=== PATIENT | female | born 1970 | race Caucasian/White ===

== ENCOUNTER 2022-04-30 07:44 | Emergency (ER) | payer BC, SELFPAY ==
[2022-04-30 07:48] VITALS: BP 135/82; PULSE 69; RESP 18; TEMP 36.5; O2SAT 98; BMI 35.4
--- NOTE | 2022-04-30 08:18 | CRLHL7_ITS ---
For Patients: As a result of the Century Cures Act, medical imaging exams and procedure reports are released immediately into your electronic medical record. You may view this report before your referring provider. If you have questions, please contact your health care provider. INDICATION: Head injury. TECHNIQUE: CT head without contrast. COMPARISON: February 25, 2015. FINDINGS: CSF spaces: Within normal limits for age. Brain parenchyma and extra-axial spaces: The akbar-white differentiation is normal. No sign of mass, hemorrhage, or midline shift. No extra-axial fluid collection. Skull base and calvarium: The visualized paranasal sinuses and mastoid air cells demonstrate no acute or significant findings. The visualized orbits are grossly unremarkable. No skull fractures. IMPRESSION: Unremarkable noncontrast head CT. Please note that all CT scans at this facility use dose modulation, iterative reconstruction, and/or weight-based dosing when appropriate to reduce radiation dose to as low as reasonably achievable. Dictated by Jorge L Farah MD @ 04/30/2022 9:12:22 AM (Electronically Signed)
--- NOTE | 2022-04-30 08:54 | ED_ITS ---
HPI - Head Injury General Date Seen: 04/30/22 Chief complaint: Head Injury/Pain Stated complaint: Pressure on right side of head/blurred vision Time Seen by Provider: 04/30/22 08:06 Source: patient Mode of arrival: ambulatory Limitations: no limitations History of Present Illness HPI Narrative: Patient is a delightful 51-year-old female presents here after a fall 2 weeks ago where she fell backwards on ice hitting the back part of her head, since then she has had headaches, which are not atypical for her as she chronically has headaches were she takes ibuprofen 800 mg every other day. Why she is here today she just feels off, fogginess, feels that her vision almost does not catch up to her when she turns her head, has felt nauseous at times but has not vomited, denies any numbness tingling or weakness associated with this, has no photophobia, has trouble remembering things when she is talking to people. History of previous head injuries but no previous CT scans are evaluation by physician, the fall occurred at home, and she was evaluated within 24 hours by her primary care physician who felt that she had a concussion. She is not on any anticoagulants, history of depression, denies alcohol or drug use. History of hysterectomy. Complaint: head injury Onset (ago): week(s) (2) Mechanism of Injury: fall Place: home Loss of Consciousness: no Location of injury: occipital Severity: moderate Quality: crushing Radiation: none Other Injuries: none Associated symptoms: confusion, vision changes and nausea Related Data Home Medications Medication Instructions Recorded Confirmed fluoxetine 40 mg capsule (Prozac) 40 mg PO QAM 09/16/21 04/30/22 omeprazole 20 mg capsule,delayed 20 mg PO QDAY 09/16/21 04/30/22 release doxycycline hyclate 20 mg tablet mg 04/30/22 Allergies Allergy/AdvReac Type Severity Reaction Status Date / Time No Known Drug Allergies Allergy Verified 09/16/21 12:22 Review of Systems Status of ROS: Reports: 10 or more systems reviewed and unremarkable except as noted in History and below [facility] Social History Smoking Status: Never smoker How often do you have a drink containing alcohol: monthly or less AUDIT-C Alcohol total score: 1 Non-prescribed substance use: denies use Exam Narrative: Exam Narrative: Patient is speaking normally, no problem with slurring words, oriented x3. Head eyes ears nose and throat exam show equal pupils, no scleral icterus, extraocular muscles are normal, no facial droop, speech is normal, trachea normal and midline. Thyroid normal midline palpable not enlarged. Chest shows symmetrical rise bilaterally, normal auscultation with no wheezes, no increased work of breathing, no overt bruising or lesions seen, no tenderness is noted on auscultation. Heart sounds normal with no S3-S4 no murmurs clicks or gallops. Abdomen shows no obvious masses or hepatosplenomegaly, no organomegaly, bowel sounds are normal in all quadrants. No tenderness is noted also in all quadrants. Upper and lower extremities show normal power, normal range of motion, pulses are normal, sensations normal, fine motor movements are normal, pelvis is stable to rocking. Cervical spine shows normal range of motion, and palpably not tender. Thoracic spine shows normal range of motion, and palpably not tender, lumbar spine shows no tenderness to palpation percussion and is otherwise normal range of motion. Skin shows no rashes, petechiae or eccymosis. Cranial nerves 3-12 are normal, rapid alternating movements of the fingers bilaterally are normal, she has a little bit of shakiness which she tells me is chronic of her hands bilaterally are/tremor. She is able to tandem walk without stepping out Const: Vital Signs, click to edit/add: Vital Signs - 24 hr 04/30/22 07:48 Temperature 97.7 F Pulse Rate [Pulse Oximeter] 69 Respiratory Rate 18 Blood Pressure [Ri ght Upper Arm] 135/82 Pulse Oximetry 98 Oxygen Delivery Me thod Room Air Documenting provider has reviewed patient's vital signs: yes Course Course Hospital Course: I discussed with the patient, her CT scan did not show any acute abnormality, this is part and parcel her symptoms with postconcussion syndrome, this is a really well known diagnosis, and she should improve with time, but knowing that her brain is macroscopic normal. And sleeping, modified work activities, and avoidance of specific activities is all okay. Follow-up with primary care, and I did give her work note, she was comfortable this, her questions were answered. Vital Signs Vital signs: Initial Vital Signs Temperature 97.7 F 04/30/22 07:48 Temperature Source Temporal Artery Scan 04/30/22 07:48 Pulse Rate 69 04/30/22 07:48 Respiratory Rate 18 04/30/22 07:48 Blood Pressure 135/82 04/30/22 07:48 Blood Pressure Mean 99 04/30/22 07:48 Blood Pressure Position Supine 04/30/22 07:48 Pulse Oximetry 98 04/30/22 07:48 Oxygen Delivery Method 04/30/22 07:48 Vital Signs Temperature 97.7 F 04/30/22 07:48 Pulse Rate 69 04/30/22 07:48 Respiratory Rate 18 04/30/22 07:48 Blood Pressure 135/82 04/30/22 07:48 Pulse Oximetry 98 04/30/22 07:48 Oxygen Delivery Method 04/30/22 07:48 Temperature 97.7 F 04/30/22 07:48 Pulse Rate 69 04/30/22 07:48 Respiratory Rate 18 04/30/22 07:48 Blood Pressure 135/82 04/30/22 07:48 Pulse Oximetry 98 04/30/22 07:48 Oxygen Delivery Method 04/30/22 07:48 MDM - Head Injury MDM Narrative Medical decision making narrative: Life-threatening differential diagnosis is considered include: Subarachnoid hemorrhage, subdural hemorrhage, epidural hemorrhage. Other differential diagnosis considered include concussion, closed head injury, or neck fracture. I do believe that we will do a CT scan, now to rule out any intrinsic abnormality of her head as she has had the symptoms now for 2 weeks but this definitely does sound like more of a postconcussion syndrome. Differential Diagnosis Differential diagnosis: Likely concussion without loss of consciousness, epidural hematoma, closed head injury, subarachnoid hematoma, postconcussion syndrome and subdural hematoma Medical Records Attestation: I reviewed the patient's medical records. Lab Data Attestation: I reviewed the patient's lab results. Imaging Data CT scan - head: Attestation: I have reviewed the pertinent imaging results. My impression: Reviewed this CT of the head, I do not see any acute abnormality, awaiting radiological read Radiologist's impression: Patient: KASSANDRA KIM Facility:?[facility] Patient ID:?[id number] Site Patient ID:?[id number]. Site :?[id number] Study:?CT Head W/O-04/30/2022 8:36:24 AM Ordering Physician:Aldo Davies Final Report: INDICATION: Head injury. TECHNIQUE: CT head without contrast. COMPARISON: February 25, 2015. FINDINGS: CSF spaces: Within normal limits for age. Brain parenchyma and extra-axial spaces: The akbar-white differentiation is normal. No sign of mass, hemorrhage, or midline shift. No extra-axial fluid collection. Skull base and calvarium: The visualized paranasal sinuses and mastoid air cells demonstrate no acute or significant findings. The visualized orbits are grossly unremarkable. No skull fractures. IMPRESSION: Unremarkable noncontrast head CT. Please note that all CT scans at this facility use dose modulation, iterative reconstruction, and/or weight-based dosing when appropriate to reduce radiation dose to as low as reasonably achievable. Dictated by Jorge L Farah MD @ 04/30/2022 9:12:22 AM (Electronic Signature) Discharge Plan Discharge Clinical Impression: Concussion without loss of consciousness, Postconcussion syndrome Patient Disposition: Home, Self-Care Condition: Stable Instructions: Post Concussion Syndrome (ED) Additional Instructions: Home rest use of Tylenol and or ibuprofen for headache, follow-up with primary care within the next 48 hours, as you may need a modified work schedule, know that sleep is okay, CT scan did not show any acute abnormality. This will resolve with time, the usual course is 3-4 weeks, but sometimes can be prolonged. Primary care is in awesome resource for this. Work note given for the next 24 hours Activity Level: No strenuous activity and Light activity Prescriptions: No Action omeprazole 20 mg capsule,delayed release(DR/EC) 20 mg PO QDAY fluoxetine [Prozac] 40 mg capsule 40 mg PO QAM doxycycline hyclate 20 mg tablet Label Comments: TAKE 1 TABLET BY MOUTH TWICE DAILY Follow Up/Referrals: Seble Heath PA-C [Referring] - Stand Alone Forms: [employer] Info Instructions
[2022-04-30 09:54] VITALS: BP 139/82; PULSE 62; RESP 16; O2SAT 100
== END 2022-04-30 09:56 | disposition home or self-care (01) ==
PROVIDERS: Emergency Provider Family Medicine; PCP Surgery
DX: S06.0X0A Concussion without loss of consciousness, initial encounter (principal); W00.9XXA Unspecified fall due to ice and snow, initial encounter
CPT/HCPCS: 70450; 99283; 99284

== ENCOUNTER 2024-04-20 14:37 | Emergency (ER) | payer SELFPAY ==
--- OUTSIDE RECORDS SUMMARY | 2024-04-20 14:40 | XMS_ITS | Clinical Summary ---
Author Organization [facility] Address [address] [place] [id number] Care Team Providers Care Physical Therapist Assistant Name Role Phone Clinic, [facility] Primary Care Provider Allergies No known active allergies Social History Tobacco Use Types Packs/Day Years Used Date Smoking Tobacco: Never Assessed Adolescent Education Answer Date Record ed Getting School Help Needed Not on file 11/23 Comments Unknown Sex and Gender Information Value Date Recorded Sex Assigned at Not on file Legal Sex Female 3:10 AM DIRECTOR OF PRODUCT DESIGN Gender Identity Not on file Sexual Orientation Not on file Last Filed Vital Signs Vital Sign Reading Time Taken Comments Blood Pressure 120/71 03/31/2011 1:13 AM DIRECTOR OF [employer]ODUCT DES[employer] Pulse 90 03/31/2011 1:13 AM DIRECTOR OF [employer]ODUCT DES[employer] Temperature 36.7 C (98 F) 03/31/2011 12:21 AM DIRECTOR OF PRODUCT DES[employer] Respiratory Rate 18 03/31/2011 1:13 AM DIRECTOR OF PRODUCT DESIGN Oxygen Saturation 95% 03/31/2011 1:13 AM DIRECTOR OF PRODUCT DESIGN Inhaled Oxygen Concentration - - Weight 102.1 kg (225 lb) 03/31/2011 12:21 AM DIRECTOR OF PRODUCT DESIGN Height 177.8 cm (5' 10) 03/31/2011 12:21 AM DIRECTOR OF PRODUCT DESIGN Body Mass Index 32.28 03/31/2011 12:21 AM DIRECTOR OF PRODUCT DESIGN Plan of Treatment Health Maintenance Due Date Last Done Comments ADVANCE CARE PLANNING 1970 ANNUAL REVIEW OF HM ORDERS 1972 CT COLONOGRAPHY 1972 FIT 1972 FLEX SIG 1972 GLUCOSE 1972 MAMMO SCREENING 1972 COLONOSCOPY 1982 HIV SCREENING 08/22/1987 HEPATITIS C SCREENING 1990 HEPATITIS B IMMUNIZATION (1 of 3 - 19+ 3-dose series) 08/22/1991 PAP 1993 LIPID 2012 YEARLY PREVENTIVE VISIT 01/16/2022 01/16/2021 Pneumococcal Vaccine: 50+ Years (1 of 1 - PCV) 2022 ZOSTER IMMUNIZATION (1 of 2) 2022 COVID-19 Vaccine (3 - season) 2023 02/08/2021, 01/16/2021 INFLUENZA VACCINE (#1) 2023 2, 11/20/2010, 01/23/2007 PHQ-2 (once per calendar year) 2024 COLORECTAL CANCER SCREENING 04/23/2025 sDNA (Cologuard) 04/23/2025 04/23/2022 DTAP/TDAP/TD IMMUNIZATION (5 - Td or Tdap) 07/07/2030 07/07/2020, 05/26/2012, 05/25/2010, Additional history exists HPV IMMUNIZATION Aged Out No longer e ligible based on patient's age to complete this topic MENINGITIS IMMUNIZATION Aged Out No l onger eligible based on patient's age to complete this topic Insurance [employer] OTHER [employer] INSURANCE Care Teams Physical Therapist Assistant Relationship Specialty Start Date End Date [address] [address] PCP - General 03/31/11
--- OUTSIDE RECORDS SUMMARY | 2024-04-20 14:40 | XMS_ITS | Clinical Summary ---
Author Organization [employer] [facility] [facility] Address [address] [place] [id number] Care Team Providers Care Sales Product Specialist Name Role Phone Jason Farrar MD Primary Care Provider [phone] Zaira Charlton PA Unavailable [phone] Unavailable [phone] Jordon Kennedy MD Unavailable Kiki Baer RN Unavailable Carolina Guevara RD Unavailable Allergies Active Allergy Reactions Criticality Noted Date Comments Cats (Fur, Dander, Saliva) Runny Nose 1 Levonorgestrel-Ethinyl Estrad *Unknown 2019 Bupropion Hcl Itching 03/11/2016 Medications mometasone-formote rol (Dulera) 100-5 mcg/actuation inhalerIndications :Moderate persistent asthma without complication Inhale 2 Puffs by mouth two times daily. 3 Each 3 02/15/20 23 Active albuterol HFA (PRO-AIR; VENTOLIN; PROVENTIL) 90 mcg/actuation inhalerIndications :Moderate persistent asthma without complication Inhale 1-2 Puffs by mouth every 4 hours if needed for Shortness of Breath 1st choice or Wheezing 1st choice. 1 Each 3 02/15/20 23 Active doxycycline 20 mg tabletIndications: Rosacea Take 1 Tablet (20 mg) by mouth two times daily. 180 Tablet 3 02/15/20 23 Active omeprazole (PRILOSEC) 40 mg Delayed-Release capsuleIndications :Gastroesophageal reflux disease, unspecified whether esophagitis present Take 1 Capsule (40 mg) by mouth once daily. 90 Capsule 3 07/04/19 24 Active calcium citrate-vitamin D3, 315 mg-250 units, (CITRACAL WITH VITAMIN D) 315 mg-6.25 mcg (250 unit) tab tablet Take 2 Tablets by mouth two times daily with meals. Total daily dose of Calcium should be 1200mg - 1500mg 08/19/19 24 Active pedi multivit no.140-iron fum (Child Chewable Vitamn Complete) 18 mg iron chew Chew 1 Tablet by mouth once daily. Active cholecalciferol, Vitamin D3, (Vitamin D-3) 5,000 unit tab tablet Take by mouth once daily. 08/19/19 24 Active azelaic acid (FINACEA) 15 % gelIndications:Ros acea APPLY A THIN LAYER TOPICALLY TO AFFECTED AREA(S) TWICE DAILY. 50 g 2 12/04/19 24 Active SUMAtriptan (IMITREX) 50 mg tabletIndications: Chronic daily headache TAKE 1 TABLET BY MOUTH NEEDED FOR HEADACHE. CAN REPEAT 1X PER DAY. MINIMUM 2 HOURS APART PER DOSE. MAX DOSE 2 TABLETS PER 24 HOURS. 10 Tablet 02/14/20 24 Active ondansetron (ZOFRAN ODT) 4 mg disintegrating tabletIndications: Nausea Place 1 Tablet (4 mg) on the tongue every 6 hours if needed for Nausea/Vomiti ng. 30 Tablet 02/20/20 24 Active FLUoxetine (PROZAC) 20 mg capsuleIndications :Dysthymia TAKE 3 CAPSULES BY MOUTH ONCE DAILY 270 Capsule 02/27/19 25 Active metroNIDAZOLE (METROCREAM) 0.75 % creamIndications:P erioral dermatitis APPLY CREAM TOPICALLY TO AFFECTED AREA TWICE DAILY 45 g 3 03/21/19 25 Active traZODone (DESYREL) 50 mg tabletIndications: Insomnia, idiopathic,Major depressive disorder, recurrent, moderate (HC) Take 1 Tablet (50 mg) by mouth at bedtime. 90 Tablet 3 02/15/20 23 025 Discontin ued(*Rani ent states no longer taking) topiramate (TOPAMAX) 25 mg tabletIndications: Hx of migraine headaches Take 1 Tablet (25 mg) by mouth at bedtime x 14 days, then increase to 2 tablets (50 mg) at bedtime 60 Tablet 10/01/19 24 025 Discontin ued(*Med complete/ Regimen complete/ Level of care change) Active Problems Patient Care Coordination No te Formatting of this note migh t be different from the original. SEE DOC FLOWSHEET-PIPELINE FOR NEW BARIATRIC COORDINATION NOTE. ALIA, RN Problem Noted Date Diagnosed Date Obesity, Class II, BMI 35-39.9 10/01/2023 Persistent depressive disorder 09/15/2023 Morbid obesity with BMI of 40.0-44.9, adult 07/26 Eosinophilic esophagitis 06/03/2017 Overview (06/03/2017): EGD 05/2017 EoE Generalized anxiety disorder 11/12/2013 Overview (12/16/2013): Oct 2013: sertraline (Zoloft) increased to 50, Patient didn't tolerate so back to 25mg. Nov 2013: added buspirone. Oligomenorrhea 09/07/2013 Insomnia 09/07/2013 Tendonitis of foot 06/20/2012 Overview (06/20/2012): Left dorsal foot; past month Vitamin D deficiency 07/12/2011 Posttraumatic stress disorder 02/06/2011 Unspecified asthma(493.90) 01/23/2007 Rosacea 01/23/2007 Allergic rhinitis, cause unspecified 01/23/2007 Dysthymic disorder Resolved Problems Problem Noted Date Diagnosed Date Resolved Date Borderline personality disorder 02/04/2008 12/30/2019 Major depressive disorder, r ecurrent episode, unspecified 08/26/2007 01/31/2012 Encounters Date Type Department Care Team Description 04/06/2024 4:05 PM STAFFING EXECUTIVE Office Visit [facility] [address] [place] [address] Jason Farrar MD Preoperative Exam (Gastric bypass DOS: 04/14/24 / ) 04/06/2024 Travel 04/01/2024 3:20 PM STAFFING EXECUTIVE Office Visit [facility] [address] [place] [address] Jaymie Crump PA Shoulder Pain/problem 04/01/2024 Travel 03/30/2024 Travel 03/19/2024 Refill [facility] [address] [place] [address] Jason Farrar MD Refill Request (Metronidazole) 03/05/2024 Nurse Triage [facility] [address] [place] [address] Jason Farrar MD Error-please disregard 02/27/2024 Telephone [facility] [address] [facility] [place] [address] Jordon Kennedy MD EXCLUSION Bariatric Insurance Verification/Requireme nts 02/23/2024 Refill [facility] [address] [place] [address] Jason Farrar MD Refill Request (Fluoxetine) 02/20/2024 Refill [facility] [address] [place] [address] Jason Farrar MD Refill Request (ONDANSETRON) 02/15/[address] [address] Jason Farrar MD Refill Request (Metronidazole) 02/10/2024 Refill [facility] [address] [place] [address] Jason Farrar MD Refill Request (Sumatriptan Succinate 50mg tab) 02/02/2024 3:30 PM STAFFING EXECUTIVE Telemedicine [facility] Weight Management [facility] [address] [facility] [facility] [address] [place] [address] Medical Nutrition Therapy (SWL f/u) 02/01/2024 Travel from Last 3 Months Immunizations Name Administration Dates Next Due COVID-19 vaccine ([employer] [facility] 30mcg/0.3mL) [facility]ANCE [facility]ER 02/08/2021,01/16/2021 Influenza, IIV3 (Age 6-35 mos) 11/20/2010 Influenza, IIV3 (Age >=3 years) 11/22/2011,01/23 MMR 08/24/1996,03/13/1994 Td (Age >=7 Years) 02/24/2001,11/26/1994 Tdap 07/07/2020,05/26/2012,05/25/2010 Zoster (Shingrix-RZV, recombinant) 03/27/2024, Family History Medical History Relation Name Comments Cancer Father prostate Cancer-prostate Father Heart attack Father Hypertension Father Cancer-breast Maternal Aunt Cancer-breast Mother age 65 Heart attack Mother Hypertension Mother Cancer-breast Other maternal cousi n Asthma Son Cancer-ovarian No Family History Relation Name Status Comments Father Maternal Aunt Mother Other Son Social History Tobacco Use Types Packs/Day Years Used Date Smoking Tobacco: Never Passive Smoke Exposure: Current Smokeless Tobacco: Never Tobacco Cessation:Counseling Given: Yes Comments: & mother smoke outside Alcohol Use Standard Drinks/Week Comments No 0 (1 standard drink = 0.6 oz pur e alcohol) PHQ-2 Answer Date Recorded PHQ-2 TOTAL SCORE 0 09/29/2023 Social Connections Answer Date Recorded Do you often feel lonely or isolated from those around you? 0 09/04/2023 Financial Resource Strain Answer Date R ecorded Difficulty of Paying Living Expenses 3 09/04/2023 Difficulty of Paying Living Expenses Not on file 09/04/2023 Food Insecurity Answer Date Recorded Do you worry your food will run out before you are able to buy more? 1 09/04/2023 Transportation Needs Answer Date Record ed Does lack of transportation keep you from medica l appointments? 1 09/04/2023 Does lack of transportation keep you from work, meetings or getting things that you need? 1 09/04/2023 Housing Stability Answer Date Recorded What is your housing situation today? 1 09/04/2023 Utilities Answer Date Recorded Do you have trouble paying f or utilities (for example, heat, electricity, water, phone)? 1 09/04/2023 Comments No Sex and Gender Information Value Date Recorded Sex Assigned at Not on file Legal Sex Female 5:26 AM STAFFING EXECUTIVE Gender Identity Not on file Sexual Orientation Not on file Obstetrics History Para Term AB IAB SAB Ectopic Multiple Livin g Live Births 2 2 Date Outcome GA Total Labor Labor/2nd/3rd Weight Sex Type Anes PTL Mckayla A1 A5 Name Clin Last Filed Vital Signs Vital Sign Reading Time Taken Comments Blood Pressure 135/80 04/06/2024 4:03 PM STAFFING EXECUTIVE Pulse 66 04/06/2024 4:03 PM STAFFING EXECUTIVE Temperature 37.2 C (99 F) 04/11/2022 10:18 AM STAFFING EXECUTIVE Respiratory Rate 16 09/24/2022 8:08 AM CDT Oxygen Saturation 99% 04/06/2024 4:03 PM STAFFING EXECUTIVE Inhaled Oxygen Concentration - - Weight 109.4 kg (241 lb 3.2 oz) 04/06/2024 4:03 PM STAFFING EXECUTIVE Height 174.5 cm (5' 8.7) 04/06/2024 4:03 PM STAFFING EXECUTIVE Body Mass Index 35.93 04/06/2024 4:03 PM STAFFING EXECUTIVE Plan of Treatment Health Maintenance Due Date Last Done Comments Pneumococcal series for age 50+ (1 of 2 - PCV) 08/22/1991 Mammogram for age 45-75 10/16/2023 10/16/19, 03/12/2021, 05/21/2018, Additional history exists COVID-19 vaccine series ( season) 2023 02/08/2021, 01/16/2021 Influenza for age 50-64 10/26/2023 11/22/2011, 01/23 Depression screening for age 12+ 09/30/2024 10/01/2023, 09/30/2023, 09/29/2023, Additional history exists BMI (ht and wt on same day) for age 18+ 04/06/2025 04/06/2024, 02/02/2024, 12/01/2023, Additional history exists Fecal testing sDNA-FIT (Clarence guard) for age 45-75 04/23/2025 04/23/2022 Lipids for age 45-75 02/15/2028 02/14/2023, 01/16/2021, 09/29/2019, Additional history exists Tetanus booster 07/07/2030 07/07/2020, 0 03/2012, 05/25/2010, Additional history exists Tdap Completed 07/07/2020, 0 03/2012, 05/25/2010 Hepatitis C screening for ag e 18-79 Completed 11/05/2021 HIV for age 15-65 Completed 02/14/2023 Zoster (shingles) series for age 50+ Completed 03/27/2024, 12/14/2023 Procedures Procedure Name Priority Date/Time Associated Diagnosis Comments HEMOGLOBIN Routine 04/06/2024 4:47 PM STAFFING EXECUTIVE Moderate persistent asthma without complication ANTI HIV 1/2 Routine 02/14/2023 4:39 PM STAFFING EXECUTIVE Screening for HIV (human immunodeficiency virus) LIPID PANEL Routine 02/14/2023 4:39 PM STAFFING EXECUTIVE Screening, lipid XR MAMMO BILAT SCREENING Routine 10/15/2022 3:47 PM CDT Visit for screening mammogram SDNA-FIT EXTERNAL (COLOGUARD) Routine 04/23/2022 5:30 PM STAFFING EXECUTIVE Screen for colon cancer ANTI HCV Routine 11/05/2021 4:41 PM CDT Need for hepatitis C screening test from Last 3 Months or Most Recently Relevant to Health Maintenance Results * HEMOGLOBIN (04/06/2024 4:47 PM STAFFING EXECUTIVE) Pathologist [facility] HEMOGLOBIN 13.6 11.7 - 15.5 g/dL ReasultAlfred Pavon Blood BLOOD SPECIMEN / Unknown 04/06/2024 4:47 PM STAFFING EXECUTIVE 04/06/2024 4:47 PM STAFFING EXECUTIVE us Jason Farrar MD HEMATOLOGY Final Resu lt [employer] [facility] [address] [place] [address], [place] [phone] [facility] [address] [place] [address] * ANTI HIV 1/2 [24610.0] (02/14/2023 4:39 PM STAFFING EXECUTIVE) [facility] HIV-1/HIV-2 SCREEN Non-Reacti ve Non-Reacti ve 02/14/2023 9:12 PM STAFFING EXECUTIVE [facility] Comment:HIV-1 p24 and HIV-1/ HIV-2 Ab Not Detected. Blood BLOOD SPECIMEN / Unknown Venipuncture / Unknown 02/14/2023 4:39 PM STAFFING EXECUTIVE 02/14/2023 4:40 PM STAFFING EXECUTIVE us Jason Farrar MD SEND OUTS [facility] [address] [place] [address], * LIPID PANEL (02/14/2023 4:39 PM STAFFING EXECUTIVE) CHOLESTEROL,TOTAL 154 100 - 199 mg/dL 02/14/2023 8:20 PM STAFFING EXECUTIVE [facility] Comment: Cholesterol, Total Reference Ranges Desirable <200 mg/dL Borderline 200-239 mg/dL High >=240 mg/dL TRIGLYCERIDES 75 <150 mg/dL 02/14/2023 8:20 PM STAFFING EXECUTIVE [facility] HDL CHOLESTEROL 42 >40 mg/dL 8:20 PM STAFFING EXECUTIVE [facility] NON-HDL CHOLESTEROL 112 <145 mg/dl 02/14/2023 8:20 PM STAFFING EXECUTIVE [facility] CHOL/HDL RATIO 3.67 <4.50 02/14/2023 8:20 PM STAFFING EXECUTIVE [facility] LDL CHOLESTEROL 97 <=130 mg/dL 02/14/2023 8:20 PM STAFFING EXECUTIVE [facility] VLDL CHOLESTEROL 15 <=30 mg/dL 02/14/2023 8:20 PM STAFFING EXECUTIVE [facility] PROVIDER ORDERED STATUS RANDOM 02/14/2023 8:20 PM STAFFING EXECUTIVE [facility] Blood BLOOD SPECIMEN / Unknown Venipuncture / Unknown 02/14/2023 4:39 PM STAFFING EXECUTIVE 02/14/2023 4:40 PM STAFFING EXECUTIVE us Jason Farrar MD CHEMISTRY Final Resu lt [facility] [address] [place] [address], [place] * XR MAMMO BILAT SCREENING (10/15/2022 3:47 PM CDT) Anatomical Region Laterality Modality BREASTS, Breast Left, Breast Right Bilateral Mammography Impressions 10/16/2022 3:23 PM CDT There is no radiographic evidence for malignancy. Recommend annual mammograms. MAMMOGRAM ASSESSMENT: ACR 2 Benign PATIENTS: You will also receive a letter with your examination results in an easy to read format. If you have questions about your results, please contact your referring provider. Narrative 10/16/2022 3:23 PM CDT For Patients: As a result of the Cures Act, medical imaging exams and procedure reports are released immediately into your electronic medical record. You may view this report before your referring provider. If you have questions, please contact your health care provider. XR MAMMO BILAT SCREENING [[id number]] CLINICAL HISTORY: This is an asymptomatic 52 y.o. patient. INDICATION FOR EXAM: Mammogram Screening. TECHNIQUE: CC & MLO views were obtained. This study was evaluated with the assistance of Computer-Aided Detection. COMPARISON FILMS: Yes 03/12/21 [facility] 05/21/18 [facility] FINDINGS: The breasts have scattered areas of fibroglandular density. No suspicious masses or microcalcifications. There are benign appearing mass(es). Specifically there is an intramammary lymph node in the right breast. us Jason Farrar MD MAMMO Final Resu lt * SDNA-FIT EXTERNAL (COLOGUARD) (04/23/2022 5:30 PM STAFFING EXECUTIVE) NONINV COLON CA DNA+OCC BLD SCRN STL-IMP Negative Negative 04/30/2022 8:53 AM STAFFING EXECUTIVE [facility] (CLIA #:[id number]) Comment: NEGATIVE TEST RESULT. A negative Cologuard result indicates a low likelihood that a colorectal cancer (CRC) or advanced adenoma (adenomatous polyps with more advanced pre-malignant features) is present. The chance that a person with a negative Cologuard test has a colorectal cancer is less than 1 in 1500 (negative predictive value >99.9%) or has an advanced adenoma is less than 5.3% (negative predictive value 94.7%). These data are based on a prospective cross-sectional study of 10,000 individuals at average risk for colorectal cancer who were screened with both Cologuard and colonoscopy. (Phil Andre et al, N Engl J Med 2014;370(14):0100-4592) The normal value (reference range) for this assay is negative. COLOGUARD RE-SCREENING RECOMMENDATION: Periodic colorectal cancer screening is an important part of preventive healthcare for asymptomatic individuals at average risk for colorectal cancer. Following a negative Cologuard result, the [place] [employer] and U.S. Multi-Society Task Force screening guidelines recommend a Cologuard re-screening interval of 3 years. References: [place] [employer] Guideline for Colorectal Cancer Screening: https://www.cancer.org/cancer/xqszv-ktozhk-tujwet/xtmizledl-iklpyeidl-naftfkf/ac s-rec ommendations.html.; Dirk DK, Roxy WISEMAN, Gennaro HernandezK, Colorectal Cancer Screening: Recommendations for Physicians and Patients from the U.S. Multi-Society Task Force on Colorectal Cancer Screening , Am J Gastroenterology 2017; 112:4727-3865. TEST DESCRIPTION: Composite algorithmic analysis of stool DNA-biomarkers with hemoglobin immunoassay. Quantitative values of individual biomarkers are not reportable and are not associated with individual biomarker result reference ranges. Cologuard is intended for colorectal cancer screening of adults of either sex, 45 years or older, who are at average-risk for colorectal cancer (CRC). Cologuard has been approved for use by the U.S. FDA. The performance of Cologuard was established in a cross sectional study of average-risk adults aged 50-84. Cologuard performance in patients ages 45 to 49 years was estimated by sub-group analysis of near-age groups. Colonoscopies performed for a positive result may find as the most clinically significant lesion: colorectal cancer [4.0%], advanced adenoma (including sessile serrated polyps greater than or equal to 1cm diameter) [20%] or non- advanced adenoma [31%]; or no colorectal neoplasia [45%]. These estimates are derived from a prospective cross-sectional screening study of 10,000 individuals at average risk for colorectal cancer who were screened with both Cologuard and colonoscopy. (Phil Marrufo al, N Engl J Med 2014;370(14):0395-4228.) Cologuard may produce a false negative or false positive result (no colorectal cancer or precancerous polyp present at colonoscopy follow up). A negative Cologuard test result does not guarantee the absence of CRC or advanced adenoma (pre-cancer). The current Cologuard screening interval is every 3 years. ([place] [employer] and U.S. Multi-Society Task Force). Cologuard performance data in a 10,000 patient pivotal study using colonoscopy as the reference method can be accessed at the following location: www.[employer]/results. Additional description of the Cologuard test process, warnings and precautions can be found at www.SelStorogPredicSisrd.Explore.To Yellow Pages. Stool specimen (specimen) (Rectum) 04/23/2022 5:30 PM STAFFING EXECUTIVE 04/25/2022 2:29 PM STAFFING EXECUTIVE us Jason Farrar MD URINE Final Resu lt [facility] (CLIA #:[id number]) [place] [address], * ANTI HCV (11/05/2021 4:41 PM CDT) HEPATITIS C ANTIBODY Non-React simeon Non-React simeon 11/06/2021 7:55 PM CDT [facility] Comment:Antibodies to HCV no t detected; does not exclude the possibility of exposure to HCV. Blood BLOOD SPECIMEN / Unknown Venipuncture / Unknown 11/05/2021 4:41 PM CDT 11/05/2021 4:41 PM CDT Jason Farrar MD SEND OUTS Final Resu lt [facility] [address] [place] [address], [place] from Last 3 Months or Most Recently Relevant to Health Maintenance Insurance [employer] Care Teams Sales Product Specialist Relationship Specialty Start Date End Date Jason Farrar MD [address] [place] [address] PCP - General Family Practice 05/16/17 Zaira Charlton PA [address] [place] [address] Physician Manager Paper 08/03/[address] [place] [address] Bargeman 08/03/23 Jordon Kennedy MD [address] [place] [address] Surgery - General 08/18/23 Kiki Baer, XAVIER [address] [place] [address] Registered Nurse 08/18/[address] [facility] [address] [place] [address] Bargeman 10/28/23
[2024-04-20 14:46] VITALS: BP 101/69; PULSE 77; RESP 20; TEMP 36.6; O2SAT 97; BMI 34.2
--- OUTSIDE RECORDS SUMMARY | 2024-04-20 15:07 | XMS_ITS | Clinical Summary ---
Author Organization [employer] [facility] Address [address] [place] [address] Care Team Providers Care Business Office Assistant Name Role Phone Jason Farrar MD Primary Care Provider [phone] Zaira Charlton PA Unavailable [phone] Unavailable [phone] Jordon Kennedy MD Unavailable Kiki Baer [...] Department Care Team Description 04/06/2024 4:05 PM DINKEY LOCOMOTIVE ENGINEER Office Visit [facility] [address] [place] [address] Jason Farrar MD Preoperative Exam (Gastric bypass DOS: 04/14/24 / ) 04/06/2024 Travel 04/01/2024 3:20 PM DINKEY LOCOMOTIVE ENGINEER Office Visit [facility] [address] [place] [address] Jaymie Crump PA Shoulder Pain/problem 04/01/2024 Travel 03/30/2024 Travel 03/19/2024 Refill [facility] [address] [place] [address] Jason Farrar MD Refill Request (Metronidazole) 03/05/2024 Nurse Triage [facility] [address] [place] [address] Jason Farrar MD Error-please disregard 02/27/2024 Telephone [facility] [address] [place] [address] Jordon Kennedy MD EXCLUSION Bariatric Insurance Verification/Requireme nts 02/23/2024 Refill [facility] [address] [place] [address] Jason Farrar MD Refill Request (Fluoxetine) 02/20/2024 Refill [facility] [address] [place] [address] Jason Farrar MD Refill Request (ONDANSETRON) 02/15/[address] [address] Jason Farrar MD Refill Request (Metronidazole) 02/10/2024 Refill [facility] [address] [place] [address] Jason Farrar MD Refill Request (Sumatriptan Succinate 50mg tab) 02/02/2024 3:30 PM DINKEY LOCOMOTIVE ENGINEER Telemedicine [facility] Weight Management [facility] [address] [facility] [address] [place] [address] Medical Nutrition Therapy (SWL f/u) 02/01/2024 Travel from Last 3 Months Immunizations Name Administration Dates Next Due COVID-19 vaccine ([employer] NTAdsIt 30mcg/0.3mL) CHANCE MILLER 02/08/2021,01/16/2021 Influenza, IIV3 (Age [...] on file Legal Sex Female 5:26 AM DINKEY LOCOMOTIVE ENGINEER Gender Identity Not on file Sexual Orientation Not on file Obstetrics History Para Term AB IAB SAB Ectopic Multiple Livin g Live Births 2 2 Date Outcome GA Total Labor Labor/2nd/3rd Weight Sex Type Anes PTL Mckayla A1 A5 Name Clin Last Filed Vital Signs Vital Sign Reading Time Taken Comments Blood Pressure 135/80 04/06/2024 4:03 PM DINKEY LOCOMOTIVE ENGINEER Pulse 66 04/06/2024 4:03 PM DINKEY LOCOMOTIVE ENGINEER Temperature 37.2 C (99 F) 04/11/2022 10:18 AM DINKEY LOCOMOTIVE ENGINEER Respiratory Rate 16 09/24/2022 8:08 AM CDT Oxygen Saturation 99% 04/06/2024 4:03 PM DINKEY LOCOMOTIVE ENGINEER Inhaled Oxygen Concentration - - Weight 109.4 kg (241 lb 3.2 oz) 04/06/2024 4:03 PM DINKEY LOCOMOTIVE ENGINEER Height 174.5 cm (5' 8.7) 04/06/2024 4:03 PM DINKEY LOCOMOTIVE ENGINEER Body Mass Index 35.93 04/06/2024 4:03 PM DINKEY LOCOMOTIVE ENGINEER Plan of Treatment Health Maintenance Due Date [...] 12/01/2023, Additional history exists Fecal testing sDNA-FIT ([place] guard) for age 45-75 04/23/2025 04/23/2022 Lipids [...] Diagnosis Comments HEMOGLOBIN Routine 04/06/2024 4:47 PM DINKEY LOCOMOTIVE ENGINEER Moderate persistent asthma without complication ANTI HIV 1/2 Routine 02/14/2023 4:39 PM DINKEY LOCOMOTIVE ENGINEER Screening for HIV (human immunodeficiency virus) LIPID PANEL Routine 02/14/2023 4:39 PM DINKEY LOCOMOTIVE ENGINEER Screening, lipid XR MAMMO BILAT SCREENING Routine 10/15/2022 3:47 PM CDT Visit for screening mammogram SDNA-FIT EXTERNAL (COLOGUARD) Routine 04/23/2022 5:30 PM DINKEY LOCOMOTIVE ENGINEER Screen for colon cancer ANTI HCV Routine 11/05/2021 4:41 PM CDT Need for hepatitis C screening test from Last 3 Months or Most Recently Relevant to Health Maintenance Results * HEMOGLOBIN (04/06/2024 4:47 PM DINKEY LOCOMOTIVE ENGINEER) Pathologist [facility] HEMOGLOBIN 13.6 11.7 - 15.5 g/dL Access IntelligenceAlfred Pavon Blood BLOOD SPECIMEN / Unknown 04/06/2024 4:47 PM DINKEY LOCOMOTIVE ENGINEER 04/06/2024 4:47 PM DINKEY LOCOMOTIVE ENGINEER us Jason Farrar MD HEMATOLOGY Final Resu lt [facility] [address] [place] [address], [place] [phone] [facility] [address] [place] [address] * ANTI HIV 1/2 [59125.0] (02/14/2023 4:39 PM DINKEY LOCOMOTIVE ENGINEER) [facility] HIV-1/HIV-2 SCREEN Non-Reacti ve Non-Reacti ve 02/14/2023 9:12 PM DINKEY LOCOMOTIVE ENGINEER [facility] Comment:HIV-1 p24 and HIV-1/ HIV-2 Ab Not Detected. Blood BLOOD SPECIMEN / Unknown Venipuncture / Unknown 02/14/2023 4:39 PM DINKEY LOCOMOTIVE ENGINEER 02/14/2023 4:40 PM DINKEY LOCOMOTIVE ENGINEER us Jason Farrar MD SEND OUTS Final Resu lt [facility] [address] [place] [address], * LIPID PANEL (02/14/2023 4:39 PM DINKEY LOCOMOTIVE ENGINEER) CHOLESTEROL,TOTAL 154 100 - 199 mg/dL 02/14/2023 8:20 PM DINKEY LOCOMOTIVE ENGINEER [facility] Comment: Cholesterol, Total Reference Ranges Desirable <200 mg/dL Borderline 200-239 mg/dL High >=240 mg/dL TRIGLYCERIDES 75 <150 mg/dL 02/14/2023 8:20 PM DINKEY LOCOMOTIVE ENGINEER [facility] HDL CHOLESTEROL 42 >40 mg/dL 8:20 PM DINKEY LOCOMOTIVE ENGINEER [facility] NON-HDL CHOLESTEROL 112 <145 mg/dl 02/14/2023 8:20 PM DINKEY LOCOMOTIVE ENGINEER [facility] CHOL/HDL RATIO 3.67 <4.50 02/14/2023 8:20 PM DINKEY LOCOMOTIVE ENGINEER [facility] LDL CHOLESTEROL 97 <=130 mg/dL 02/14/2023 8:20 PM DINKEY LOCOMOTIVE ENGINEER [facility] VLDL CHOLESTEROL 15 <=30 mg/dL 02/14/2023 8:20 PM DINKEY LOCOMOTIVE ENGINEER [facility] PROVIDER ORDERED STATUS RANDOM 02/14/2023 8:20 PM DINKEY LOCOMOTIVE ENGINEER [facility] Blood BLOOD SPECIMEN / Unknown Venipuncture / Unknown 02/14/2023 4:39 PM DINKEY LOCOMOTIVE ENGINEER 02/14/2023 4:40 PM DINKEY LOCOMOTIVE ENGINEER us Jason Farrar MD CHEMISTRY Final Resu lt [facility] [address] [place] [address], [place] * XR MAMMO BILAT SCREENING (10/15/2022 [...] health care provider. XR MAMMO BILAT SCREENING [[id number]] CLINICAL HISTORY: This is an asymptomatic 52 y.o. patient. INDICATION FOR EXAM: Mammogram Screening. TECHNIQUE: CC & MLO views were obtained. This study was evaluated with the assistance of Computer-Aided Detection. COMPARISON FILMS: Yes 03/12/21 [facility] 05/21/18 [facility] FINDINGS: The breasts have scattered areas of fibroglandular density. No suspicious masses or microcalcifications. There are benign appearing mass(es). Specifically there is an intramammary lymph node in the right breast. us Jason Farrar MD MAMMO Final Resu lt * SDNA-FIT EXTERNAL (COLOGUARD) (04/23/2022 5:30 PM DINKEY LOCOMOTIVE ENGINEER) NONINV COLON CA DNA+OCC BLD SCRN STL-IMP Negative Negative 04/30/2022 8:53 AM DINKEY LOCOMOTIVE ENGINEER [facility] (CLIA #:[id number]) Comment: NEGATIVE TEST RESULT. A negative Cologuard [...] Andre et al, N Engl J Med 2014;370(14):2856-0428) The normal value (reference range) for this assay is negative. COLOGUARD RE-SCREENING RECOMMENDATION: Periodic colorectal cancer screening is an important part of preventive healthcare for asymptomatic individuals at average risk for colorectal cancer. Following a negative Cologuard result, the [place] Cancer Society and U.S. Multi-Society Task Force screening guidelines recommend a Cologuard re-screening interval of 3 years. References: [place] Cancer Society Guideline for Colorectal Cancer Screening: https://www.cancer.org/cancer/sppzg-tmpagk-txkdww/rzzugnqcs-ibfdczxht-lauvqtf/ac s-rec ommendations.html.; Dirk DK, Roxy WISEMAN, Gennaro HernandezK, Colorectal Cancer Screening: Recommendations for Physicians and Patients from the U.S. Multi-Society Task Force on Colorectal Cancer Screening , Am J Gastroenterology 2017; 112:4412-8500. TEST DESCRIPTION: Composite algorithmic analysis of stool [...] (Phil Marrufo al, N Engl J Med 2014;370(14):0162-7889.) Cologuard may produce a false negative or false positive result (no colorectal cancer or precancerous polyp present at colonoscopy follow up). A negative Cologuard test result does not guarantee the absence of CRC or advanced adenoma (pre-cancer). The current Cologuard screening interval is every 3 years. ([place] Cancer Society and U.S. Multi-Society Task Force). Cologuard performance data in a 10,000 patient pivotal study using colonoscopy as the reference method can be accessed at the following location: www.Chaordix/results. Additional description of the Cologuard test process, warnings and precautions can be found at www.ALGAentisogRadar da Produçãord.AddThis. Stool specimen (specimen) (Rectum) 04/23/2022 5:30 PM DINKEY LOCOMOTIVE ENGINEER 04/25/2022 2:29 PM DINKEY LOCOMOTIVE ENGINEER us Jason Farrar MD URINE Final Resu lt [facility] (CLIA #:[id number]) [place] [address], * ANTI HCV (11/05/2021 4:41 PM CDT) HEPATITIS C ANTIBODY Non-React simeon Non-React simeon 11/06/2021 7:55 PM CDT [facility] Comment:Antibodies to HCV no t detected; does not exclude the possibility of exposure to HCV. Blood BLOOD SPECIMEN / Unknown Venipuncture / Unknown 11/05/2021 4:41 PM CDT 11/05/2021 4:41 PM CDT Jason Farrar MD SEND OUTS Final Resu lt [facility] [address] [place] [address], [place] from Last 3 Months or Most Recently Relevant to Health Maintenance Insurance [employer] Care Teams Business Office Assistant Relationship Specialty Start Date End Date Jason Farrar MD [address] [place] [address] PCP - General Family Practice 05/16/17 Zaira Charlton PA [address] [place] [address] Physician Middle School Technology Teacher 08/03/[address] [place] [address] Technical Expert 08/03/23 Jordon Kennedy MD [address] [place] [address] Surgery - General 08/18/23 Kiki Baer, XAVIER [address] [place] [address] Registered Nurse 08/18/[address] [facility] [address] [place] [address] Technical Expert 10/28/23
--- OUTSIDE RECORDS SUMMARY | 2024-04-20 15:07 | XMS_ITS | Clinical Summary ---
Author Organization [employer] Address [address] [place] [address] Care Team Providers Care School Child Care Attendant Name Role Phone Clinic, [facility] Primary Care Provider Allergies No known active allergies Social History Tobacco Use Types Packs/Day Years Used Date Smoking Tobacco: Never Assessed Adolescent Education Answer Date Record ed Getting School Help Needed Not on file 11/23 Comments Unknown Sex and Gender Information Value Date Recorded Sex Assigned at Not on file Legal Sex Female 3:10 AM MOLDER LABELS Gender Identity Not on file Sexual Orientation Not on file Last Filed Vital Signs Vital Sign Reading Time Taken Comments Blood Pressure 120/71 03/31/2011 1:13 AM MOLDER LABELS Pulse 90 03/31/2011 1:13 AM MOLDER LABELS Temperature 36.7 C (98 F) 03/31/2011 12:21 AM MOLDER LABELS Respiratory Rate 18 03/31/2011 1:13 AM MOLDER LABELS Oxygen Saturation 95% 03/31/2011 1:13 AM MOLDER LABELS Inhaled Oxygen Concentration - - Weight 102.1 kg (225 lb) 03/31/2011 12:21 AM MOLDER LABELS Height 177.8 cm (5' 10) 03/31/2011 12:21 AM MOLDER LABELS Body Mass Index 32.28 03/31/2011 12:21 AM MOLDER LABELS Plan of Treatment Health Maintenance Due Date [...] topic Insurance MEDICA CHOICE OTHER TRAVELERS INSURANCE Member Subscriber Plan / Payer (Ef fective 2022-Present) Name:Abilio Kimiron Hernandez Member ID:[id number] Relation to Subscriber:Employee Name:[employer]. Subscriber ID:[id number] Date of :1897 (Home) Address: [address] [place] [address] Payer ID:[id number] Group ID:Not on file Type:Not on file Address: [facility] [id number] [place] [address] Care Teams School Child Care Attendant Relationship Specialty Start Date End Date [address] [address] PCP - General 03/31/11
== END 2024-04-20 15:09 | disposition left against medical advice (07) ==
LOC: ED 15:05
PROVIDERS: Emergency Provider Family Medicine; PCP Surgery
DX: Z53.21 Procedure and treatment not carried out due to patient leaving prior to being seen by health care provider (principal)

== ENCOUNTER 2024-04-25 07:13 | Emergency (ER) | payer BC, SELFPAY ==
--- OUTSIDE RECORDS SUMMARY | 2024-04-25 07:16 | XMS_ITS | Clinical Summary ---
Author Organization [employer] [facility] Address [address] [place] [address] Care Team Providers Care Sdv Pilot/Navigator/Dds Operator Name Role Phone Jason Farrar MD Primary Care Provider [phone] Zaira Charlton PA Unavailable [phone] Unavailable [phone] Jordon Kennedy MD Unavailable Kiki Baer [...] Encounters Date Type Department Care Team Description 04/20/2024 Telephone [facility] [address] [facility] [place] [address] Isabelle Long PA 04/06/2024 4:05 PM SENIOR LOGISTICS MANAGER Office Visit [facility] [address] [place] [address] Jason Farrar MD Preoperative Exam (Gastric bypass DOS: 04/14/24 / ) 04/06/2024 Travel 04/01/2024 3:20 PM SENIOR LOGISTICS MANAGER Office Visit [facility] [address] [facility] [place] [address] Jaymie Crump PA Shoulder Pain/problem 04/01/2024 Travel 03/30/2024 Travel 03/19/2024 Refill [facility] [address] [place] [address] Jason Farrar MD Refill Request (Metronidazole) 03/05/2024 Nurse Triage [facility] [address] [place] [address] Jason Farrar MD Error-please disregard 02/27/2024 Telephone [facility] [address] [place] [address] Jordon Kennedy MD EXCLUSION Bariatric Insurance Verification/Requireme nts 02/23/2024 Refill [facility] [address] [place] [address] Jason Farrar MD Refill Request (Fluoxetine) 02/20/2024 Refill [facility] [address] [place] [address] Jason Farrar MD Refill Request (ONDANSETRON) 02/15/2024 Refill [facility] [address] [place] [address] Jason Farrar MD Refill Request (Metronidazole) 02/10/2024 Refill [facility] [address] [place] [address] Jason Farrar MD Refill Request (Sumatriptan Succinate 50mg tab) 02/02/2024 3:30 PM SENIOR LOGISTICS MANAGER Telemedicine [facility] Weight Management [address] [facility] [address] [place] [id number] [address] Medical Nutrition Therapy (SWL f/u) 02/01/2024 Travel from Last 3 Months Immunizations Name Administration Dates Next Due COVID-19 vaccine (Pfizer-Bio NTech 30mcg/0.3mL) PF, MDV 02/08/2021,01/16/2021 Influenza, IIV3 (Age 6-35 mos) 11/20/2010 [...] on file Legal Sex Female 5:26 AM SENIOR LOGISTICS MANAGER Gender Identity Not on file Sexual Orientation Not on file Obstetrics History Para Term AB IAB SAB Ectopic Multiple Livin g Live Births 2 2 Date Outcome GA Total Labor Labor/2nd/3rd Weight Sex Type Anes PTL Mckayla A1 A5 Name Clin Last Filed Vital Signs Vital Sign Reading Time Taken Comments Blood Pressure 135/80 04/06/2024 4:03 PM SENIOR LOGISTICS MANAGER Pulse 66 04/06/2024 4:03 PM SENIOR LOGISTICS MANAGER Temperature 37.2 C (99 F) 04/11/2022 10:18 AM SENIOR LOGISTICS MANAGER Respiratory Rate 16 09/24/2022 8:08 AM CDT Oxygen Saturation 99% 04/06/2024 4:03 PM SENIOR LOGISTICS MANAGER Inhaled Oxygen Concentration - - Weight 109.4 kg (241 lb 3.2 oz) 04/06/2024 4:03 PM SENIOR LOGISTICS MANAGER Height 174.5 cm (5' 8.7) 04/06/2024 4:03 PM SENIOR LOGISTICS MANAGER Body Mass Index 35.93 04/06/2024 4:03 PM SENIOR LOGISTICS MANAGER Plan of Treatment Health Maintenance Due Date [...] 12/01/2023, Additional history exists Fecal testing sDNA-FIT ([place] guard) for age 45-75 04/23/2025 04/23/2022 Lipids for age 45-75 02/15/2028 02/14/2023, 01/16/2021, 09/29/2019, Additional history exists Tetanus booster 07/07/2030 07/07/2020, 03/2012, 05/25/2010, Additional history exists Tdap Completed 07/07/2020, 03/2012, 05/25/2010 Hepatitis C screening for ag e 18-79 Completed 11/05/2021 HIV for age 15-65 Completed 02/14/2023 Zoster (shingles) series for age 50+ Completed 03/27/2024, 12/14/2023 Procedures Procedure Name Priority Date/Time Associated Diagnosis Comments HEMOGLOBIN Routine 04/06/2024 4:47 PM SENIOR LOGISTICS MANAGER Moderate persistent asthma without complication ANTI HIV 1/2 Routine 02/14/2023 4:39 PM SENIOR LOGISTICS MANAGER Screening for HIV (human immunodeficiency virus) LIPID PANEL Routine 02/14/2023 4:39 PM SENIOR LOGISTICS MANAGER Screening, lipid XR MAMMO BILAT SCREENING Routine 10/15/2022 3:47 PM CDT Visit for screening mammogram SDNA-FIT EXTERNAL (COLOGUARD) Routine 04/23/2022 5:30 PM SENIOR LOGISTICS MANAGER Screen for colon cancer ANTI HCV Routine 11/05/2021 4:41 PM CDT Need for hepatitis C screening test from Last 3 Months or Most Recently Relevant to Health Maintenance Results * HEMOGLOBIN (04/06/2024 4:47 PM SENIOR LOGISTICS MANAGER) HEMOGLOBIN 13.6 11.7 - 15.5 g/dL MobiiAndrew Pavon Blood BLOOD SPECIMEN / Unknown 04/06/2024 4:47 PM SENIOR LOGISTICS MANAGER 04/06/2024 4:47 PM SENIOR LOGISTICS MANAGER us Jason Farrar MD HEMATOLOGY Final Resu lt [facility] [address] [place] [address], MobiiJaziel Pavon [address] [place] [address] * ANTI HIV 1/2 [47149.0] (02/14/2023 4:39 PM SENIOR LOGISTICS MANAGER) HIV-1/HIV-2 SCREEN Non-Reacti ve Non-Reacti ve 02/14/2023 9:12 PM SENIOR LOGISTICS MANAGER [facility] Comment:HIV-1 p24 and HIV-1/ HIV-2 Ab Not Detected. Blood BLOOD SPECIMEN / Unknown Venipuncture / Unknown 02/14/2023 4:39 PM SENIOR LOGISTICS MANAGER 02/14/2023 4:40 PM SENIOR LOGISTICS MANAGER us Jason Farrar MD SEND OUTS Final Resu lt [facility] [address] [place] [address], * LIPID PANEL (02/14/2023 4:39 PM SENIOR LOGISTICS MANAGER) CHOLESTEROL,TOTAL 154 100 - 199 mg/dL 02/14/2023 8:20 PM SENIOR LOGISTICS MANAGER [facility] Comment: Cholesterol, Total Reference Ranges Desirable <200 mg/dL Borderline 200-239 mg/dL High >=240 mg/dL TRIGLYCERIDES 75 <150 mg/dL 02/14/2023 8:20 PM SENIOR LOGISTICS MANAGER [facility] HDL CHOLESTEROL 42 >40 mg/dL 8:20 PM SENIOR LOGISTICS MANAGER [facility] NON-HDL CHOLESTEROL 112 <145 mg/dl 02/14/2023 8:20 PM SENIOR LOGISTICS MANAGER [facility] CHOL/HDL RATIO 3.67 <4.50 02/14/2023 8:20 PM SENIOR LOGISTICS MANAGER [facility] LDL CHOLESTEROL 97 <=130 mg/dL 02/14/2023 8:20 PM SENIOR LOGISTICS MANAGER [facility] VLDL CHOLESTEROL 15 <=30 mg/dL 02/14/2023 8:20 PM SENIOR LOGISTICS MANAGER [facility] PROVIDER ORDERED STATUS RANDOM 02/14/2023 8:20 PM SENIOR LOGISTICS MANAGER [facility] Blood BLOOD SPECIMEN / Unknown Venipuncture / Unknown 02/14/2023 4:39 PM SENIOR LOGISTICS MANAGER 02/14/2023 4:40 PM SENIOR LOGISTICS MANAGER Jason Farrar MD CHEMISTRY Final Resu lt [facility] [address] [place] [address], [place] * XR MAMMO BILAT SCREENING (10/15/2022 [...] health care provider. XR MAMMO BILAT SCREENING [[id number]] CLINICAL HISTORY: This is an asymptomatic 52 y.o. patient. INDICATION FOR EXAM: Mammogram Screening. TECHNIQUE: CC & MLO views were obtained. This study was evaluated with the assistance of Computer-Aided Detection. COMPARISON FILMS: Yes 03/12/21 [facility] 05/21/18 [facility] FINDINGS: The breasts have scattered areas of fibroglandular density. No suspicious masses or microcalcifications. There are benign appearing mass(es). Specifically there is an intramammary lymph node in the right breast. us Jason Farrar MD MAMMO Final Resu lt * SDNA-FIT EXTERNAL (COLOGUARD) (04/23/2022 5:30 PM SENIOR LOGISTICS MANAGER) NONINV COLON CA DNA+OCC BLD SCRN STL-IMP Negative Negative 04/30/2022 8:53 AM SENIOR LOGISTICS MANAGER [facility] (CLIA #:[id number]) Comment: NEGATIVE TEST RESULT. A negative Cologuard [...] Andre et al, N Engl J Med 2014;370(14):9906-6812) The normal value (reference range) for this assay is negative. COLOGUARD RE-SCREENING RECOMMENDATION: Periodic colorectal cancer screening is an important part of preventive healthcare for asymptomatic individuals at average risk for colorectal cancer. Following a negative Cologuard result, the [place] Cancer Society and U.S. Multi-Society Task Force screening guidelines recommend a Cologuard re-screening interval of 3 years. References: [place] Cancer Society Guideline for Colorectal Cancer Screening: https://www.cancer.org/cancer/dckve-hmyooo-xuowuw/swdmzngal-gyyhjkcgk-ondawzs/ac s-rec ommendations.html.; Dirk DK, Roxy WISEMAN, Gennaro HernandezK, Colorectal Cancer Screening: Recommendations for Physicians and Patients from the U.S. Multi-Society Task Force on Colorectal Cancer Screening , Am J Gastroenterology 2017; 112:3132-4046. TEST DESCRIPTION: Composite algorithmic analysis of stool [...] (Phil Marrufo al, N Engl J Med 2014;370(14):6391-6682.) Cologuard may produce a false negative or false positive result (no colorectal cancer or precancerous polyp present at colonoscopy follow up). A negative Cologuard test result does not guarantee the absence of CRC or advanced adenoma (pre-cancer). The current Cologuard screening interval is every 3 years. ([place] Cancer Society and U.S. Multi-Society Task Force). Cologuard performance data in a 10,000 patient pivotal study using colonoscopy as the reference method can be accessed at the following location: www.GloPos Technology.AnyPerk/results. Additional description of the Cologuard test process, warnings and precautions can be found at www.Clear Blue Technologiesoguard.AnyPerk. Stool specimen (specimen) (Rectum) 04/23/2022 5:30 PM SENIOR LOGISTICS MANAGER 04/25/2022 2:29 PM SENIOR LOGISTICS MANAGER us Jason Farrar MD URINE Final Resu lt [facility] (CLIA #:[id number]) [address] [place] [address], * ANTI HCV (11/05/2021 4:41 PM CDT) HEPATITIS C ANTIBODY Non-React simeon Non-React simeon 11/06/2021 7:55 PM CDT [facility] Comment:Antibodies to HCV no t detected; does not exclude the possibility of exposure to HCV. Blood BLOOD SPECIMEN / Unknown Venipuncture / Unknown 11/05/2021 4:41 PM CDT 11/05/2021 4:41 PM CDT us Jason Farrar MD SEND OUTS Final Resu lt [facility] [address] [place] [address], from Last 3 Months or Most Recently Relevant to Health Maintenance Insurance [facility] NON-FL-ITS [facility] TRAVELERS Care Teams Sdv Pilot/Navigator/Dds Operator Relationship Specialty Start Date End Date Jason Farrar MD [address] [place] [address] PCP - General Family Practice 05/16/17 Zaira Charlton PA [address] [place] [address] Physician Senior Environmental Engineer 08/03/[address] [place] [address] Southeast Regional Sales Manager 08/03/23 Jordon Kennedy MD [address] [place] [address] Surgery - General 08/18/23 Kiki Baer, XAVIER [address] [place] [address] Registered Nurse 08/18/[address] [address] Southeast Regional Sales Manager 10/28/23
[2024-04-25 07:17] VITALS: BP 113/80; PULSE 85; TEMP 36.3; O2SAT 99; BMI 34.0
--- NOTE | 2024-04-25 08:24 | ED_ITS ---
HPI - General Adult General Chief complaint: Skin/Abscess/Foreign Body Stated complaint: rash Time Seen by Provider: 04/25/24 07:52 Source: patient Mode of arrival: ambulatory Limitations: no limitations History of Present Illness HPI narrative: 53 year old female presenting today with a pruritic rash that started 3 days ago. Patient had a Pancho-en-Y surgery on 04/14/2024 with Dermabond across multiple small incisions across the abdomen. On of this week she started developing a very itchy rash over 1 of the incisions the quickly spread across the entire abdomen. This rash is located no where else. She contacted her physician she was told to take the Dermabond off of all the incisions and use the clobetasol cream across the abdomen as well as take Claritin. Unfortunately the cream was called in incorrectly so she has been using [id number] hydrocortisone. The hydrocortisone helps very temporarily and the Claritin does not seem to be helping. Patient is allergic to diphenhydramine. She denies any systemic symptoms. She is taking a clear liquid diet. She denies any new creams or lotions. Related Data Home Medications ?Medication ?Instructions ?Recorded ?Confirmed fluoxetine 40 mg capsule (Prozac) 40 mg PO QAM 09/16/21 04/25/24 omeprazole 20 mg capsule,delayed 20 mg PO QDAY 09/16/21 04/25/24 release Allergies Allergy/AdvReac Type Severity Reaction Status Date / Time diphenhydramine (From Allergy Intermediate Rash Verified 04/25/24 07:17 Benadryl) Review of Systems Status of ROS: Reports: 10 or more systems reviewed and unremarkable except as noted in History and below [facility] Medical History Shingles ?B02.9 - Zoster without complications (ICD-10) Social History Smoking Status: Never smoker How often do you have a drink containing alcohol: monthly or less AUDIT-C Alcohol total score: 1 Non-prescribed substance use: denies use Exam Narrative: Exam Narrative: Well-nourished well-developed patient in no acute distress. Alert and oriented. Answers questions appropriately. Mood and affect are appropriate. Thoughts are goal oriented and rational. No tangential or magical thinking noted. Patient speaks in full sentences without needing to catch her breath. HEENT: Normocephalic atraumatic. Pupils are equally round reactive to light. Extraocular muscles are intact. Conjunctivae are moist without any icterus noted. Moist mucous membranes. No rash inside the mouth. Abdomen: Soft and nontender nondistended with normal bowel sounds. Incisions across the abdomen are healing appropriately. She has a raised papular rash across the abdomen. No areas of excoriation. She does have an incision that still has Dermabond on it. The rash is located across the abdomen. Does not go into the chest or the flank. The rash is not located anywhere else including the extremities or the back. Extremities: Bilateral lower extremities are without edema. Skin: Well perfused without any obvious rashes aside from the abdominal wall. Const: Vital Signs, click to edit/add: Vital Signs - 24 hr 04/25/24 07:17 Temperature 97.4 F L Pulse Rate [Pulse Oximeter] 85 Blood Pressure [Ri ght Upper Arm] 113/80 Pulse Oximetry 99 Oxygen Delivery Me thod Room Air Course Vital Signs Vital signs: Initial Vital Signs Temperature 97.4 F L 04/25/24 07:17 Temperature Source Temporal Artery Scan 04/25/24 07:17 Pulse Rate 85 04/25/24 07:17 Blood Pressure 113/80 04/25/24 07:17 Blood Pressure Mean 91 04/25/24 07:17 Blood Pressure Position Sitting 04/25/24 07:17 Pulse Oximetry 99 04/25/24 07:17 Oxygen Delivery Method Room Air 04/25/24 07:17 Vital Signs Temperature 97.4 F L 04/25/24 07:17 Pulse Rate 85 04/25/24 07:17 Blood Pressure 113/80 04/25/24 07:17 Pulse Oximetry 99 04/25/24 07:17 Oxygen Delivery Method Room Air 04/25/24 07:17 Temperature 97.4 F L 04/25/24 07:17 Pulse Rate 85 04/25/24 07:17 Blood Pressure 113/80 04/25/24 07:17 Pulse Oximetry 99 04/25/24 07:17 Oxygen Delivery Method Room Air 04/25/24 07:17 Medications Administered Medications: Discontinued Medications Generic Name Dose Route Start Last Admin Trade Name Freq PRN Reason Stop Dose Admin Prednisone 50 mg 04/25/24 08:24 03/02/25 08:36 Prednisone 10 Mg Tablet PO 04/25/24 08:25 50 mg ONCE ONE Administration Medical Decision Making MDM Narrative Medical decision making narrative: Given the intensity of the pruritus I did go ahead and give the patient a dose of oral steroid in the ED today. I want her to call her surgeon Friday to discuss whether not she should continue taking steroids were she should proceed with the topical clobetasol. If the rash was indeed from the Dermabond hopefully it will get better given the fact that she still had Dermabond on the abdominal wall today and that was removed. Discharge Plan Discharge Clinical Impression: Pruritic rash Patient Disposition: Home, Self-Care Condition: Stable Additional Instructions: Call your doctor Friday to discuss whether not you should continue taking oral steroids or if you should continue with the topical clobetasol. It could be that the rash will get better now that the Dermabond has been completely removed from the abdominal wall. Prescriptions: No Action omeprazole 20 mg capsule,delayed release(DR/EC) 20 mg PO QDAY fluoxetine [Prozac] 40 mg capsule 40 mg PO QAM Follow Up/Referrals: Jason Farrar MD [Primary Care Provider] - Stand Alone Forms: [employer] Medical Info Instructions
--- OUTSIDE RECORDS SUMMARY | 2024-04-25 08:30 | XMS_ITS | Clinical Summary ---
Author Organization [facility] Address [address] [place] [id number] Care Team Providers Care Clinical Neuropsychologist Name Role Phone Clinic, [facility] Primary Care Provider Allergies No known active allergies Social History Tobacco Use Types Packs/Day Years Used Date Smoking Tobacco: Never Assessed Adolescent Education Answer Date Record ed Getting School Help Needed Not on file 11/23 Comments Unknown Sex and Gender Information Value Date Recorded Sex Assigned at Not on file Legal Sex Female 3:10 AM CUSTOMER COMPLAINT CLERK Gender Identity Not on file Sexual Orientation Not on file Last Filed Vital Signs Vital Sign Reading Time Taken Comments Blood Pressure 120/71 03/31/2011 1:13 AM CUSTOMER COMPLAINT CLERK Pulse 90 03/31/2011 1:13 AM CUSTOMER COMPLAINT CLERK Temperature 36.7 C (98 F) 03/31/2011 12:21 AM CUSTOMER COMPLAINT CLERK Respiratory Rate 18 03/31/2011 1:13 AM CUSTOMER COMPLAINT CLERK Oxygen Saturation 95% 03/31/2011 1:13 AM CUSTOMER COMPLAINT CLERK Inhaled Oxygen Concentration - - Weight 102.1 kg (225 lb) 03/31/2011 12:21 AM CUSTOMER COMPLAINT CLERK Height 177.8 cm (5' 10) 03/31/2011 12:21 AM CUSTOMER COMPLAINT CLERK Body Mass Index 32.28 03/31/2011 12:21 AM CUSTOMER COMPLAINT CLERK Plan of Treatment Health Maintenance Due Date [...] [employer] CHOICE OTHER [employer]ANCE Care Teams Clinical Neuropsychologist Relationship Specialty Start Date End Date [address] [address] PCP - General 03/31/11
[2024-04-25] MEDS: predniSONE 10 MG TABLET 50 MG PO (08:36)
== END 2024-04-25 08:47 | disposition home or self-care (01) ==
PROVIDERS: Emergency Provider Family Medicine; PCP Surgery
DX: R21 Rash and other nonspecific skin eruption (principal)
CPT/HCPCS: 99283; J7512

== ENCOUNTER 2024-08-09 08:39 | Day surgery (SDC) | payer BC, SELFPAY ==
[2024-08-09] VITALS (10 sets, daily range): BP systolic 105–125; BP diastolic 57–76; PULSE 52–64; RESP 16–18; TEMP 36.3–36.7; O2SAT 96–99; BMI 29.1
[2024-08-09] MEDS: LACTATED RINGERS 1000 ML 1,000 ML 100 ML IV (09:27)
[2024-08-09] MEDS: SODIUM CHLORIDE 0.9 % (FLUSH) 10 ML SYRINGE IVF (09:27)
--- NOTE | 2024-08-09 09:53 | W.PM.H&PU ---
History & Physical Update History & Physical Update H&P Reviewed and patient assessed: No changes noted
[2024-08-09] MEDS: CEFAZOLIN 1 GM inj IVP (10:50)
--- NOTE | 2024-08-09 11:15 | P.GSOP_ITS ---
Operative Note Date of procedure: 08/09/24 Pre-op diagnosis: Symptomatic hemorrhoids Post-op diagnosis: Same Type of Procedure: 1 quadrant internal and external hemorrhoidectomy Indications: The patient is a 53-year-old female who unfortunately developed severe symptomatic hemorrhoids after developing constipation after surgery. She was i nitially managed conservatively with topical agents and fiber, however she had a persistent external skin tag that failed to resolve, was painful and caused issues with hygiene. We discussed surgical hemorrhoidectomy and after discussion of risks and benefits, she agreed to proceed. Procedure Description: After discussing the risks and benefits of the procedure, the patient signed informed consent.? The was brought to the operating room and a spinal anesthetic was placed. Please see anesthesia's note for details. She was then placed in prone arielle-knife position with care to pad her pressure points. She was then given sedation by Anesthesia. The operative site was then prepped and draped in the usual sterile fashion.? A time-out was then performed. A digital rectal exam was performed. No masses were palpated. The Menezes bivalve was then inserted into the anal canal. The patient had fairly normal internal hemorrhoidal tissue circumferentially, however, on her right posterolateral, she had a pedunculated skin tag extending into the anal canal contiguous with enlarged internal hemorrhoidal tissue. I 1st incised the mucosa at the apex of the internal hemorrhoidal column using cautery. Dissection was taken in a submucosal plane with care to avoid the sphincter complex as the tissue was dissected toward the anoderm. Once the hemorrhoidal tissue was completely excised, this was sent to pathology. A 3-0 chromic suture was then used to close the mucosa in a running, locking fashion for hemostasis to the anoderm. This was then run back to the apex of the incision in the anal canal and tied. The skin of the anoderm was left open. 10 mL of liposomal bupivacaine was then injected as a pudendal block bilaterally and around the hemorrhoidectomy site. Hemostasis appeared excellent at the end of the case. Bacitracin was applied to the open area followed by gauze. The patient was then woken and transported to the recovery area in stable condition. ? The patient tolerated the procedure well. Findings: External skin tag contiguous with internal hemorrhoidal column Anesthesia: MAC and spinal Surgeon: Cara Sanchez MD Estimated blood loss (mL): 10 Specimen: Other Additional Specimen Information: Hemorrhoidal tissue Condition: stable Disposition: PACU
--- NOTE | 2024-08-09 11:21 | P.ANES_ITS ---
Anesthesia Charges Start Date/Time Anesthesia Start Date: 08/09/24 Anesthesia Start Time: 10:32 Stop Date/Time Anesthesia Stop Date: 08/09/24 Anesthesia Stop Time: 11:22 Coding CPT Codes CPT Codes: ANESTH ANORECTAL SURGERY - 33683 ([id number]) P2 - PATIENT W/MILD SYST DISEASE, QK - BALL MILL MIXER 2-4 CNCRNT ANES PROC, QX - LUMPIA WRAPPER MAKER SVC W/ MD MED DIRECTION
--- NOTE | 2024-08-09 11:21 | W.ANESCHARGE ---
Anesthesia Charges Start Date/Time Anesthesia Start Date: 08/09/24 Anesthesia Start Time: 10:32 Stop Date/Time Anesthesia Stop Date: 08/09/24 Anesthesia Stop Time: 11:22 Coding CPT Codes CPT Codes: ANESTH ANORECTAL SURGERY - 56725 ([id number]) P2 - PATIENT W/MILD SYST DISEASE, QK - HIGHWAY ENGINEERING TEACHER 2-4 CNCRNT ANES PROC, QX - WET CHEMISTRY ANALYST SVC W/ MD MED DIRECTION
--- NOTE | 2024-08-09 11:31 | P.ANES_ITS ---
Anesthesia Charges Start Date/Time Anesthesia Start Date: 08/09/24 Anesthesia Start Time: 10:32 Stop Date/Time Anesthesia Stop Date: 08/09/24 Anesthesia Stop Time: 11:22 Coding CPT Codes CPT Codes: ANESTH ANORECTAL SURGERY - 52257 ([id number]) P2 - PATIENT W/MILD SYST DISEASE, QX - COMPONENT INSPECTOR SVC W/ MD MED DIRECTION, QK - ASSET PROTECTION ASSISTANT 2-4 CNCRNT ANES PROC
--- NOTE | 2024-08-09 11:31 | W.ANESCHARGE ---
Anesthesia Charges Start Date/Time Anesthesia Start Date: 08/09/24 Anesthesia Start Time: 10:32 Stop Date/Time Anesthesia Stop Date: 08/09/24 Anesthesia Stop Time: 11:22 Coding CPT Codes CPT Codes: ANESTH ANORECTAL SURGERY - 03986 ([id number]) P2 - PATIENT W/MILD SYST DISEASE, QX - TUBE DISPATCHER SVC W/ MD MED DIRECTION, QK - BASKETBALL SCOUT 2-4 CNCRNT ANES PROC
[2024-08-09] MEDS: BUPIVACAINE LIPOSOME 133 MG/10 ML INJ INFILTRATI (11:48)
== END 2024-08-09 12:58 | disposition home or self-care (01) ==
PROVIDERS: PCP Surgery; Visit Provider Surgery
PROC: (CPT 46255; principal; 2024-08-09 10:15)
DX: K64.8 Other hemorrhoids (principal); K64.4 Residual hemorrhoidal skin tags
CPT/HCPCS: 46255; 00902; 88304; J0666; J0690; J1100; J2250; J2405; J2704; J3010; J7120

== ENCOUNTER 2025-02-03 15:32 | Emergency (ER) | payer BC, SELFPAY ==
--- OUTSIDE RECORDS SUMMARY | 2025-01-18 10:10 | XMS_ITS | Encounter Summary ---
Author Organization [facility] Address [address] [place] [id number] Care Team Providers Care Marketing Co Op Name Role Phone Jason Farrar MD Primary Care Provider [phone] Reason for Referral * (Routine) - OpenSpecialtyDiagnoses / ProceduresReferred By ContactReferred To Contact Procedures Diet: (specify) Isabelle Long PA-C [address] [place] [address] [place] [address] Phone: tel: fax: Referral IDStatusReasonStart DateExpiration DateVisits RequestedVisits [id number]/26/202511 ECT MGR * (Routine) - OpenSpecialtyDiagnoses / ProceduresReferred By ContactReferred To Contact Procedures Wound care Isabelle Long PA-C [address] [place] [address] Phone: tel: fax: Referral IDStatusReasonStart DateExpiration DateVisits RequestedVisits [id number]/26/202511 ECT MGR * (Routine) - OpenSpecialtyDiagnoses / ProceduresReferred By ContactReferred To Contact Procedures Showering instructions Isabelle Long PA-C [address] [place] [address] Phone: tel: fax: Referral IDStatusReasonStart DateExpiration DateVisits RequestedVisits [id number]/26/202511 ECT MGR * (Routine) - OpenSpecialtyDiagnoses / ProceduresReferred By ContactReferred To Contact Procedures Lifting restrictions Isabelle Long PA-C [address] [place] [address] [place] [address] Phone: tel: fax: Referral IDStatusReasonStart DateExpiration DateVisits RequestedVisits [id number]/26/202511 ECT MGR * (Routine) - OpenSpecialtyDiagnoses / ProceduresReferred By ContactReferred To Contact Procedures No driving Isabelle Long PA-C [address] [place] [address] [place] [address] Phone: tel: fax: Referral IDStatusReasonStart DateExpiration DateVisits RequestedVisits [id number]/26/202511 ECT MGR * (Routine) - OpenSpecialtyDiagnoses / ProceduresReferred By ContactReferred To Contact Procedures No strenuous activity Isabelle Long PA-C [address] [place] [address] [place] [address] Phone: tel: fax: Referral IDStatusReasonStart DateExpiration DateVisits RequestedVisits [id number]/26/202511 ECT MGR * Consultation (Routine) - OpenSpecialtyDiagnoses / ProceduresReferred By ContactReferred To ContactGeneral Surgery Diagnoses H/O hiatal hernia Isabelle Long PA-C [address] [place] [address] [place] [address] Phone: tel: fax: [facility] [address] [place] [address] Referral IDStatusReasonStart DateExpiration DateVisits RequestedVisits [id number] Specialty Services Required Scheduling Instructions You're not required to be seen at the location specified above. Depending on scheduling, convenience, and availability, you may be seen at a different site. QuestionAnswer Specify time frame for follow up? 2 Weeks Follow Up Instructions follow up with Dr. patel in 2 weeks ECT MGR * (Routine) - OpenSpecialtyDiagnoses / ProceduresReferred By ContactReferred To Contact Procedures Temperature >100.4 (38 degrees Celsius) Isabelle Long PA-C [address] [place] [address] [place] [address] Phone: tel: fax: Referral IDStatusReasonStart DateExpiration DateVisits RequestedVisits [id number]/26/202511 ECT MGR * (Routine) - OpenSpecialtyDiagnoses / ProceduresReferred By ContactReferred To Contact Procedures Persistent nausea or vomiting Isabelle Long PA-C [address] [place] [address] [place] [address] Phone: tel: fax: Referral IDStatusReasonStart DateExpiration DateVisits RequestedVisits [id number]/26/202511 ECT MGR * (Routine) - OpenSpecialtyDiagnoses / ProceduresReferred By ContactReferred To Contact Procedures Pain not relieved by medication Isabelle Long PA-C [address] [place] [address] [place] [address] Phone: tel: fax: Referral IDStatusReasonStart DateExpiration DateVisits RequestedVisits [id number]/26/202511 ECT MGR * (Routine) - OpenSpecialtyDiagnoses / ProceduresReferred By ContactReferred To Contact Procedures Inability to eat, drink, or take medication Isabelle Long PA-C [address] [place] [address] [place] [address] Phone: tel: fax: Referral IDStatusReasonStart DateExpiration DateVisits RequestedVisits [id number]/26/202511 ECT MGR * (Routine) - OpenSpecialtyDiagnoses / ProceduresReferred By ContactReferred To Contact Procedures Difficulty breathing, headache, or visual disturbance Isabelle Long PA-C [address] [place] [address] [place] [address] Phone: tel: fax: Referral IDStatusReasonStart DateExpiration DateVisits RequestedVisits [id number]/26/202511 ECT MGR * (Routine) - OpenSpecialtyDiagnoses / ProceduresReferred By ContactReferred To Contact Procedures Isabelle Casey PA-C [address] [place] [address] [place] [address] Phone: tel: fax: Referral IDStatusReasonStart DateExpiration DateVisits RequestedVisits [id number]/26/202511 ECT MGR * (Routine) - OpenSpecialtyDiagnoses / ProceduresReferred By ContactReferred To Contact Procedures Constipation >48 hours Isabelle Long PA-C [address] [place] [address] [place] [address] Phone: tel: fax: Referral IDStatusReasonStart DateExpiration DateVisits RequestedVisits [id number]/26/202511 ECT MGR * (Routine) - OpenSpecialtyDiagnoses / ProceduresReferred By ContactReferred To Contact Procedures Any questions or concerns Isabelle Long PA-C [address] [place] [address] [place] [address] Phone: tel: fax: Referral IDStatusReasonStart DateExpiration DateVisits RequestedVisits [id number]/26/202511 ECT MGR Reason for Visit * Inpatient Admission (Routine)SpecialtyDiagnoses / ProceduresReferred By ContactReferred To Contact Diagnoses Diaphragmatic hernia without obstruction or gangrene Diaphragmatic hernia without obstruction or gangrene [K44.9] Procedures LAPS RPR PARAESPHGL HRNA INCL FUNDPLSTY W/O MESH ESOPHAGOGASTRODUODENOSCOPY TRANSORAL DIAGNOSTIC ROBOTIC XI ASSISTED LAPAROSCOPIC HIATAL HERNIA REPAIR, INTRAOPERATIVE EGD Referral IDStatusReasonStart DateExpiration DateVisits RequestedVisits [id number] Encounter Details DateTypeDepartmentCare Team (Latest Contact Info)Ymulnjombdu32/25/2025 10:10 AM PROJECT MGR - 01/19/2025 11:20 AM CSTHospital Encounter [id number] [facility] [place] [address] Tyron Patel MD [address] [place] [phone] H/O hiatal hernia Discharge Disposition: Returning Home/Self Care Social History Tobacco UseTypesPacks/DayYears UsedDateSmoking Tobacco: NeverPassive Smoke Exposure: NeverSmokeless Tobacco: Never Tobacco Cessation:Counseling Given: Not Answered Alcohol UseStandard Drinks/WeekCommentsNot Currently0 (1 standard drink = 0.6 oz pure alcohol)Humiliation, Afraid, Rape, and Kick questionnaireAnswerDate RecordedWithin the last year, have you been afraid of your partner or ex-partner?No01/18/2025Within the last year, have you been humiliated or emotionally abused in other ways by your partner or ex-partner?No01/18/2025 Within the last year, have you been kicked, hit, slapped, or otherwise physically hurt by your partner or ex-partner?No01/18/2025Within the last year, have you been raped or forced to have any kind of sexual activity by your part ner or ex-partner?No01/18/2025Hunger Vital SignAnswerDate RecordedWithin the past 12 months, you worried that your food would run out before you got the money to buymore.Never true01/18/2025Within the past 12 months, the food you bought just didn't last and you didn't have money to get more.Never true 01/18/2025PRAPARE - TransportationAnswerDate RecordedIn the past 12 months, has lack of transportation kept you from medical appointments or from getting medications?No01/18/2025In the past 12 months, has lack of transportation kept you from meetings, work, or from getting things needed for daily living?No 01/18/2025Housing Stability Vital SignAnswerDate RecordedIn the last 12 months, was there a time when you were not able to pay the mortgage or rent on time?No 01/18/2025In the past 12 months, how many times have you moved where you were living?t any time in the past 12 months, were you homeless or living in a penitentiary (including now)?No01/18/2025HC UtilitiesAnswerDate RecordedIn the past 12 months has the [employer], gas, oil, or water [employer] threatened to shut off services in your home?No01/18/2025CommentsNoSex and Gender InformationValueDate RecordedSex Assigned at BirthNot on fileLegal SexFemale 12/22/2024 3:31 PM CDTGender IdentityNot on fileSexual OrientationNot on file documented as of this encounter Last Filed Vital Signs Vital SignReadingTime TakenCommentsBlood Mrhgvnzp912/6901/19/2025 11:00 AM PROJECT MGR Hipov532001/19/2025 11:00 AM TYMBynojrnolmz22.8 ??C (98.3 ??F)01/19/2025 11:00 AM CSTRespiratory Tbuu4661 8:14 AM CSTOxygen Iysxcbiwly92%01/19/2025 11:00 AM CSTInhaled Oxygen Concentration--Fsbqhg84.3 kg (155 lb)01/13/2025 1:11 PM PROJECT MGR Omhxsv484.7 cm (5' 8)01/13/2025 1:11 PM CSTBody Mass Index23.5701/13/2025 1:11 PM CSTdocumented in this encounter Discharge Summaries * Isabelle Long PA-C - 01/19/2025 8:25 AM CST Images from the original note were not included. HOSPITAL DISCHARGE SUMMARY Patient Name: Felicia Ibarra Date of : 1970 Attending Provider: Tyron Patel MD Admission Date: 01/18/2025 Discharge Date: 01/19/2025 LENGTH OF STAY: At the time of admission, the patient was expected to have an inpatient stay of equal to or greaterthan 2 midnights in the hospital. Discharge occurred earlier than expected as the patient showed clinical improvement to treatment more quickly than anticipated. She will be discharged on 01/19/25 to home. DISCHARGE DIAGNOSES: Principal Problem: H/O hiatal hernia DISCHARGE MEDICATIONS: Medication List START taking these medications hyoscyamine sulfate 0.125 mg sublingual tablet Commonly known as: LEVSIN Take 1 tablet (0.125 mg) under the tongue every 4 (four) hours as needed (esophageal spasm). Replaces: hyoscyamine sulfate 0.125 mg Tbdl methocarbamoL 500 mg tablet Commonly known as: ROBAXIN Take 1 tablet (500 mg) by mouth every 6 (six) hours as needed (muscle spasms). Crush tablet. oxyCODONE (immediate release) 5 mg tablet Commonly known as: ROXICODONE Take 1 tablet (5 mg) by mouth every 6 (six) hours as needed. CHANGE how you take these medications omeprazole 20 mg delayed release capsule Commonly known as: PriLOSEC Take 1 capsule (20 mg) by mouth twice a day. Open and sprinkle over water to aid in stomach healing. What changed: medication strength how much to take when to take this additional instructions ondansetron 4 mg ODT Commonly known as: Zofran Dissolve 1 tablet (4 mg) in mouth every 8 (eight) hours as needed for nausea. What changed: how to take this reasons to take this CONTINUE taking these medications albuterol HFA 90 mcg/actuation inhaler Commonly known as: Proventil;Ventolin HFA azelaic acid 15 % gel Commonly known as: FINACEA BARIATRIC MULTIVITAMINS ORAL Calcium Citrate-Vitamin D3 315 mg-6.25 mcg (250 unit) Tab Cholecalciferol (Vitamin D3) 125 mcg (5,000 unit) capsule DULERA INHL ferrous sulfate 325 mg (65 mg iron) tablet Commonly known as: FERATAB FLUoxetine 20 mg capsule Commonly known as: PROzac metroNIDAZOLE 0.75 % cream Commonly known as: Metrocream SUMAtriptan succinate 50 mg tablet Commonly known as: IMITREX STOP taking these medications hyoscyamine sulfate 0.125 mg Tbdl Commonly known as: HYOMAX-FT Replaced by: hyoscyamine sulfate 0.125 mg sublingual tablet Where to Get Your Medications These medications were sent to [facility] [address] [place], [place] [address] [id number] Hours: Mon-Fri: 7:30AM-6PM / Sat: 9AM-3PM / Sun: 9AM-3PM hyoscyamine sulfate 0.125 mg sublingual tablet methocarbamoL 500 mg tablet omeprazole 20 mg delayed release capsule ondansetron 4 mg ODT oxyCODONE (immediate release) 5 mg tablet FOLLOWUP: Contact information for follow-up [facility] [place] [address] Specify time frame for follow up?: 2 Weeks Follow Up Instructions: follow up with Dr. patel in 2 weeks You're not required to be seen at the location specified above. Depending on scheduling, convenience, and availability, you may be seen at a different site. Discharge Procedure Orders Follow up with Surgery Referral Priority: Routine Referral Type: Consultation Referral Reason: Specialty Services Required Requested Specialty: General Surgery Number of Visits Requested: 1 Any questions or concerns Constipation >48 hours Dehydration Difficulty breathing, headache, or visual disturbance Inability to eat, drink, or take medication Pain not relieved by medication Persistent nausea or vomiting Temperature >100.4 (38 degrees Celsius) No strenuous activity No heavy lifting over 30lbs for 4 weeks No driving No driving while taking oxycodone Lifting restrictions No heavy lifting over 30lbs for 4 weeks Lifting restictions: No heavy lifting Showering instructions May shower after 24 hours Diet: (specify) Will advance to mesha full liquid diet prior to discharge. Discharge on mesha full liquid diet. Continue until POD4, then can advance slowly to soft diet, then regular bariatric diet. Wound care Wound care instructions: Steri strips are over incision. Please keep these in place as well as you can until your follow up with Dr. Patel in 2 weeks. PENDING TEST RESULTS: None HOSPITAL COURSE: Ms. Ibarra is a 54 year old female who presented to [facility] on 01/[facility] forrob assisted lap hiatal hernia repair. She underwent the procedure on the day of admission. Her postoperative course was uneventful. On POD #1, she was tolerating a bariatric clear liquid diet without significant nausea or vomiting. She was ambulating independently with no chest pain or SOB. Her pain was controlled with a PO pain regimen. Decision was made to discharge the patient. The patient was discharged home on 11/26/25 in good condition. All questions were sought and answered prior to hospital discharge.; prescriptions were signed and routed to the pharmacy. Follow up appointments have been scheduled. Total day of discharge planning/coordination of care <30 minutes. DISCHARGE EXAM: Gen- alert, NAD HEENT- PERRL, no scleral icterus CV- RRR, no JVD Lungs- clear, no dyspnea Abd soft, non-distended, mild tenderness, incisions clean dry intact with steri strips, no sx infection. No peritoneal sx. Ext- no edema, cyanosis Skin warm and dry, no jaundice Neuro- A&O, motor intact Psych- appropriate mood and affect. PROCEDURES: General Surgery: Garrett assisted hiatal hernia repair + intra op egd IMAGING: None LABS: Admission on 01/18/2025 Component Date Value Ref Range Status Platelet Count 01/19/2025 234 150 - 400 K/UL Final Hemoglobin 01/19/2025 12.3 12.0 - 16.0 gm/dL Final WBC 01/19/2025 13.4 (H) 4.3 - 10.8 K/uL Final Sodium 01/19/2025 141 136 - 145 mmol/L Final Potassium 01/19/2025 3.4 3.4 - 5.1 mmol/L Final Chloride 01/19/2025 104 98 - 108 mmol/L Final Carbon Dioxide 01/19/2025 31 20 - 31 mmol/L Final Anion Gap 01/19/2025 6.0 0.0 - 15.0 mmol/L Final Plan of care discussed with patient, rn, and attending physician. Isabelle Long PA-C [facility] I have rounded with and discussed the patient's plan of care with the patient's RN. Time: 30 minutes or less Cosigned by Tyron Patel MD at 01/19/2025 5:43 PM PROJECT MGR ECT MGR ECT MGR documented in this encounter Medications at Time of Discharge MedicationSigDispense QuantityRefillsLast FilledStart DateEnd Date albuterol HFA (PROVENTIL;VENTOLIN HFA) 90 mcg/actuation Inhl inhaler Inhale 2 puffs every 4 (four) hours as needed. azelaic acid (FINACEA) 15 % Top gel twice a day.08/10/2024 Calcium Citrate-Vitamin D3 315 mg-6.25 mcg (250 unit) oral Tab Take 2 tablets by mouth twice a day.08/19/2023 Cholecalciferol, Vitamin D3, 125 mcg (5,000 unit) oral capsule Take 1 capsule by mouth Daily.08/31/2024 ferrous sulfate (FERATAB) 325 mg (65 mg iron) oral tablet Take 1 tablet (325 mg) by mouth Daily.08/31/2024 FLUoxetine (PROZAC) 20 mg oral capsule Take 3 capsules (60 mg) by mouth Daily.09/21/2024 hyoscyamine sulfate (LEVSIN) 0.125 mg sublingual sublingual tablet Take 1 tablet (0.125 mg) under the tongue every 4 (four) hours as needed (esophageal spasm). 15 tablet 01/19/2025 10:00 AM CST01/19/2025 methocarbamoL (ROBAXIN) 500 mg oral tablet Take 1 tablet (500 mg) by mouth every 6 (six) hours as needed (muscle spasms). Crush tablet. 20 tablet 01/19/2025 10:00 AM CST01/19/2025 metroNIDAZOLE (METROCREAM) 0.75 % cream APPLY CREAM TOPICALLY TO AFFECTED AREA TWICE DAILY03/21/2024 mometasone/formoterol (DULERA INHL) Inhale 2 puffs once daily. multivit-min/iron/folic acid/K (BARIATRIC MULTIVITAMINS ORAL) Take by mouth. omeprazole (PRILOSEC) 20 mg oral delayed release capsule Take 1 capsule (20 mg) by mouth twice a day. Open and sprinkle over water to aid in stomach healing. 60 capsule 01/19/2025 10:00 AM CST01/19/2025 ondansetron (ZOFRAN) 4 mg oral ODT Dissolve 1 tablet (4 mg) in mouth every 8 (eight) hours as needed for nausea. 30 tablet 01/19/2025 10:00 AM CST01/19/2025 oxyCODONE, immediate release, (ROXICODONE) 5 mg oral tablet Take 1 tablet (5 mg) by mouth every 6 (six) hours as needed. 20 tablet 01/19/2025 10:00 AM CST01/19/2025 SUMAtriptan succinate (IMITREX) 50 mg oral tablet TAKE 1 TABLET BY MOUTH NEEDED FOR HEADACHE. CAN REPEAT 1X PER DAY. MINIMUM 2 HOURS APART PER DOSE. MAX DOSE 2 TABLETS PER 24 HOURS.4documented as of this encounter Progress Notes * Carol Ann Carrasquillo RN - 01/19/2025 11:20 AM CST Felicia Ibarra 1970 [phone] P: Discharge to Home A: Discharged ambulatory to home at 1120 escorted by spouse I: Discharge information and arrangements included: review of written discharge instructions, review of purpose and side effects of new medication, prescriptions sent with patient, belongings list completed. R:Patient expressed understanding of information.. BP 121/69 Pulse 73 Temp 98.3 ??F (36.8 ??C) Resp 20 Ht 5' 8 (1.727 m) Wt 70.3 kg (155 lb) SpO2 95% BMI 23.57 kg/m?? ECT MGR * Da Bailey RN - 01/19/2025 6:30 AM CST Med-Surg Care Progression Note Type: Shift to shift summary Length of stay: 0 days Code Status: Full Code PmHx: Hiatal hernia, GERD, Pancho-en-Y gastric bypass Summary: POD #1 ROBOTIC XI ASSISTED LAPAROSCOPIC HIATAL HERNIA REPAIR, INTRAOPERATIVE EGD W/O BIOPSIES. 6 lap sites covered with steri strips, CDI ABD binder use. VSS on RA. No acute changes this shift. IS use encouraged F- Feeding & Fluids: Tolerating bariatric clear liquids A- Analgesic & Anticoagulation: Comfort Goal: Numeric, Verbal, Faces: 4 - Moderate Analgesic C/o pain and spasms to abdomen. PRN Oxycone, Vistaril, and Levsin given. Anticoagulation/DVT prevention & plan SCDs and Anticoagulant plan scheduled subq Lovenox S- Skin: Luis Carlos Subcategory Concern(s): Sensory Perception: No Impairment Moisture: Rarely Moist Activity: Walks Occasionally Activity Interventions: Reposition every 2 hours, Low air loss mattress, and Safer bundle Nutrition: Adequate Nutrition Interventions: Calorie intake Mobility: Slightly Limited Mobility Interventions: Turning every 2 hrs, TAPS, Low air loss support,and shifts weight indep in bed. Friction and Shear: No Apparent Problem Total Luis Carlos Score: 20: Old lap sites from previous surgery on abdomen. T- Telemetry: Rhythm: Sinus Rhythm Ectopy: None No tele E- Emotional & Neuro: Participating in cares Neuro Alert and Oriented R- Respiratory: On room air H- Head OUT of Bed & Activity: Activate Fall Alert? (Enter 1 or 0): (not recorded) Ambulating in room and to BR, gait steady. Progressive mobility Phases 5-7: Phase 5: 10 steps or more U- Urologic/bowel: No data recorded Voiding via BR, WNL. No BM this shift G- Glycemic Control: Not applicable T- Treatment: Post op cares/interventions. Pain management. Monitoring N/V. I- Invasive Devices: PIV, patent SL. D- Discharge: TBD. Anticipate d/c home. ECT MGR * Jose Francisco Moncada RN - 01/18/2025 8:42 PM CST Med-Surg Care Progression Note Type: Shift to shift summary Length of stay: 0 days Code Status: Full Code Primary Problem: Hiatal hernia Gastroesophageal reflux disease Heartburn History of Pancho-en-Y gastric bypass Summary: 1. Laparoscopic hiatal hernia repair, with robotic assistance (CPT 74214) 2. Intraoperative esophagogastroduodenoscopy without biopsy (CPT 56215) F- Feeding & Fluids: tolerating bariatric clear without N/V A- Analgesic & Anticoagulation: Comfort Goal: Numeric, Verbal, Faces: 4 - Moderate Analgesic Abdominal pain from surgery rated 5/10. Gave Tylenol and Oxy Anticoagulation/DVT prevention & plan SCDs S- Skin: Luis Carlos Subcategory Concern(s): Sensory Perception: No Impairment Moisture: Rarely Moist Activity: Walks Occasionally Activity Interventions: Nutrition: Adequate Nutrition Interventions: Mobility: Slightly Limited Mobility Interventions: able to turn self in bed Friction and Shear: No Apparent Problem Total Luis Carlos Score: 20: 6 lap sites CDI with tape on(pt allergic to glue). ABD binder on. T- Telemetry: Rhythm: Sinus Rhythm Ectopy: None No tele E- Emotional & Neuro: Participating in cares Neuro Alert and Oriented R- Respiratory: on 1L/NC H- Head OUT of Bed & Activity: Activate Fall Alert? (Enter 1 or 0): (not recorded) Ambulating with SBA to [facility] Early mobility Phases 1-4: (not recorded) U- Urologic/bowel: No data recorded Voiding in BSC G- Glycemic Control: Not applicable T- Treatment: post-op care, pain management. Monitor N/V, mobility I- Invasive Devices: PIV SL'd D- Discharge: home tomorrow ECT MGR documented in this encounter Nursing Notes * Carol Ann Carrasquillo RN - 01/19/2025 11:01 AM CST Pt D/c Home this morning. Problem: Mobility - Impaired Goal: Demonstrates ability to perform physical activity independently or with assistive devices as needed Outcome: Completed Goal: Verbalizes an understanding of immobility risks and complications Outcome: Completed Problem: Anticoagulation, pharmacologic therapy Goal: Adheres to therapeutic regimen Outcome: Completed Problem: Falls/Injury-Risk of Goal: Absence of Falls/Injury Outcome: Completed Problem: Pain - Acute Goal: Communication of presence of pain Outcome: Completed Goal: Exhibits reduction in pain to an acceptable level of comfort Outcome: Completed Problem: Respiratory Status - Altered, Actual or Risk of Goal: Pulse oximetry within specified parameters Outcome: Completed Problem: Mobility - Impaired Goal: Demonstrates ability to perform physical activity independently or with assistive devices as needed Outcome: Completed Problem: Mobility - Impaired Goal: Demonstrates ability to perform physical activity independently or with assistive devices as needed Outcome: Completed Goal: Verbalizes an understanding of immobility risks and complications Outcome: Completed ECT MGR * Da Bailey RN - 01/19/2025 5:51 AM CST Problem: Anticoagulation, pharmacologic therapy Goal: Adheres to therapeutic regimen Outcome: Met this shift Problem: Falls/Injury-Risk of Goal: Absence of Falls/Injury Outcome: Met this shift Flowsheets (Taken 01/19/2025 0058) Environmental Safety Interventions: Standard Interventions in Place Fall Risk Light on Outside 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 Door (NMR) Patient/Family Reminded Regarding Fall Prevention High Risk Armband On (Green Bracelet) Mobility Safety Interventions: Standard Interventions in Place Stay Within Arms Reach Fall Prevention Slippers Elimination Safety Interventions: Standard Interventions in Place Medication: Standard Interventions in Place Problem: Pain - Acute Goal: Communication of presence of pain Outcome: Met this shift Problem: Respiratory Status - Altered, Actual or Risk of Goal: Pulse oximetry within specified parameters Outcome: Met this shift Problem: Mobility - Impaired Goal: Demonstrates ability to perform physical activity independently or with assistive devices as needed Outcome: Met this shift ECT MGR * Jose Francisco Moncada RN - 01/18/2025 6:54 PM CST Problem: Pain - Acute Goal: Communication of presence of pain Outcome: Met this shift Goal: Exhibits reduction in pain to an acceptable level of comfort Outcome: Met this shift Problem: Pain - Acute Goal: Communication of presence of pain Outcome: Met this shift Problem: Pain - Acute Goal: Exhibits reduction in pain to an acceptable level of comfort Outcome: Met this shift Problem: Respiratory Status - Altered, Actual or Risk of Goal: Pulse oximetry within specified parameters Outcome: Met this shift Problem: Respiratory Status - Altered, Actual or Risk of Goal: Pulse oximetry within specified parameters Outcome: Met this shift ECT MGR * Maria Teresa Pacheco RN - 01/18/2025 3:27 PM CST PACU POSTOP END OF SHIFT SBAR S: Situation/ B: Background Patient s/p ROBOTIC XI ASSISTED LAPAROSCOPIC HIATAL HERNIA REPAIR, INTRAOPERATIVE ESOPHAGOGASTRODUEDENOSCOPY under general anesthesia. To PACU at 1430 on cart from OR. Placed on full monitors. PMH: gastric bypass, motion sickness, heartburn A: Assessment Incision: c/d/i- some shadow drainage on abd binder Dressing: old drainage Pain: some chest pain, and right shoulder- CARRIE aware, MD aware, relief with fent and oxy Nausea: denies BP 114/68 Pulse 83 Temp 97.5 ??F (36.4 ??C) Resp 15 Ht 5' 8 (1.727 m) Wt 70.3 kg (155 lb) SpO2 97% BMI 23.57 kg/m?? Saturation level 95% on 2L NC R: Recommendation Patient to A798 SBAR report given to RN receiving care BP 129/76 Pulse 74 Temp 97.5 ??F (36.4 ??C) Resp (!) 10 Ht 5' 8 (1.727 m) Wt 70.3 kg (155 lb) SpO2 95% BMI 23.57 kg/m?? Called to let him know room number ECT MGR ECT MGR documented in this encounter OR Notes * OR Surgeon - Tyron Patel MD - 01/18/2025 12:07 PM CST [facility] Surgery Operative Note DATE OF OPERATION: 01/18/25 ATTENDING SURGEON: Tyron Patel MD PLAQUE MAKER: Isabelle Long PA-C PREOPERATIVE DIAGNOSES: Hiatal hernia Gastroesophageal reflux disease Heartburn History of Pancho-en-Y gastric bypass PROCEDURES PERFORMED: 1. Laparoscopic hiatal hernia repair, with robotic assistance (CPT 92682) 2. Intraoperative esophagogastroduodenoscopy without biopsy (CPT 06010) POSTOPERATIVE DIAGNOSES: Hiatal hernia Gastroesophageal reflux disease Heartburn History of Pancho-en-Y gastric bypass ANESTHESIA: General endotracheal anesthesia. ESTIMATED BLOOD LOSS: 10 cc INDICATION FOR PROCEDURE: Felicia Ibarra is a 54-year-old female who underwent a laparoscopic Pancho-en-Y gastric bypass earlier this year for obesity and management of GERD. Following her bariatric operation, she lost a significant amount of her excess weight but unfortunately developed a small marginal ulceration at the gastrojejunostomy; she was managed with acid suppressive therapy and cytoprotective therapy for a few months with resultant resolution of her marginal ulcer disease. On her most recent endoscopy, she wasfound to have a sliding-type hiatal hernia with the proximal gastric pouch herniating above the diaphragmatic hiatus, and this was further confirmed with a barium swallow esophagram demonstrating spontaneous gastroesophageal reflux disease. She has had persistent heartburn, occasional difficulty swallowing, and periodic epigastric pain after eating. Surgical options were presented the patient karissa has elected to proceed with repair of the hiatal hernia, for which she presents to the operating room today. OPERATIVE FINDINGS: Sliding-type hiatal hernia containing proximal gastric pouch. Lateral pouch and medial remnant stomach staple line densely adherent to the left heather of the diaphragm. Circumferential distal esophageal mobilization was performed and hiatal hernia was repaired with posterior cruroplasty. EGD following repair confirmed 4 cm of intra-abdominal esophageal length, passage of the gastroscope without significant resistance across the diaphragmatic hiatus, resolution of the prior gastrojejunal marginal ulceration, and no gastrojejunal anastomotic stenosis. No immediate complications noted. DESCRIPTION OF PROCEDURE: The risks, benefits, and alternatives of surgical intervention were reviewed with the patient priorto proceeding to the operating room. Consent was signed and placed in the patient's chart. The patient was brought to the operating room and placed in the supine position with arms out on arm boards and all pressure points padded and protected. General endotracheal anesthesia was induced without complication. SCDs were in place and functional at the time of anesthesia induction. A preoperative antibiotic was administered prior to beginning the operation. A 36 Mongolian Endolumik lighted gastric bougie was inserted into the patient's esophagus without resistance to be used to assist with the hiatal dissection. The patient's abdomen was then prepped and draped in the normal sterile fashion. A surgical timeout was performed prior to beginning the operation. Local anesthetic was infiltrated into the skin in the left subcostal region at Alcantara's point and askin maria dolores was created with a scalpel. A Veress needle was used to gain access into the peritoneal cavity. Saline drop and aspiration test confirmed peritoneal entry of the needle. Insufflation tubingwas connected and opening pressure measured 3 mmHg. Pneumoperitoneum was then established to a goalpressure of 15 mmHg. Next, a 5 mm optical port was placed into the peritoneal cavity at the supraumbilical region just to the left of midline under direct laparoscopic vision. The laparoscope was used to inspect the underlying visceral structures, and there was no evidence of initial Veress needle or port entry injury to the underlying tissues. The patient was then placed in the reverse Trendelenburg position. Transversus abdominis plane (TAP) blocks were then performed. This was done with 60 cc of 0.25% bupivacaine with epinephrine local anesthetic divided into 6 equal aliquots and infiltrated into the transversus abdominis plane along the left and right lateral abdominal wall, lateral to the linea semilunaris under direct vision. We proceeded with placement of our additional working ports. Two 8 mm ports were placed in the leftupper quadrant of the abdomen, 1 at the midclavicular line and one at the anterior axillary line. The initial 5 mm optical entry port was upsized to an 8 mm robotic port. A final 8 mm robotic port was placed in the right upper quadrant of the abdomen. The da Isma robot was then brought into place and docked over the patient and robotic instruments were introduced through the working ports. Inspection of the upper abdomen revealed evidence of a prior gastric bypass. There were a few adhesions between the proximal Pancho limb and the distal gastric pouch to the undersurface of the left lobe of the liver. The adhesions were sharply taken down with monopolar vivi with cold cut and monopolar cautery. Following this, we elected to place a liver hammock suture in order to expose the diaphragmatic hiatus. A 3-0 V-loc suture was placed into the peritoneum and preperitoneal fatty tissue overlying the left hepatic lobe to the left of the falciform ligament, and was then passed through thediaphragm just above the anterior crural arch taking care so as to avoid injury to the heart or nayeli cardium above the diaphragm and to avoid injury to the inferior phrenic vein. The suture was then placed through the peritoneum and preperitoneal fatty tissue on the right side of the falciform ligament, and after tightening, the left lobe of the liver was suspended so as to expose the entirety of the diaphragmatic hiatus. Inspection of the diaphragmatic hiatus revealed a moderate-sized hiatal hernia with the proximal gastric pouch visualized herniating above the diaphragmatic crura. Inspection of the pseudo-[place] and jejunojejunostomy mesenteric spaces did not reveal evidence of an internal hernia. We began by mobilizing the right heather off the proximal gastric pouch and distal esophagus medially using the Vessel sealer bipolar device. A vessel sealer was used to incise the endoabdominal fascia overlying the right heather of the diaphragm and entered the avascular plane between the mediastinal tissues and the proximal gastric pouch and distal esophagus. A combination of blunt and sharp dissection with the Vess el sealer was used to circumferentially mobilized the distal esophagus from the mediastinal tissuesin the avascular plane. The dissection proceeded anteriorly and posteriorly along the distal esophagus with periodic use of firefly fluorescence imaging to confirm the lighted bougie and esophagus was protected during the case. Care was taken during distal esophageal mobilization to identify and protect the anterior and posterior vagus nerves, and to identify and protect the aorta posteriorly, and the pleura on both the right and left sides. A retrogastric and retroesophageal window was then created with the vessel sealer and the lateral aspect of the gastric pouch staple line and medial aspect of the gastric remnant staple line were carefully dissected off the left heather of the diaphragm. There were dense adhesions between the staple lines and the left heather of the diaphragm but these wereable to be freed to mobilize the entire staple line of the gastric pouch and reduce the pouch back into the abdominal cavity. Finally, we carefully dissected the fibrotic adhesions between there lateral gastric pouch staple line completely off the endoabdominal fascia of the left heather. The hernia sac was completely reduced below the level of the hiatus. Following complete circumferential mobilization of the distal esophagus and reduction of the gastric pouch below the hiatus, approximately 3 to4 cm of intraperitoneal esophageal length was achieved. We then proceeded with repair of the hiatalhernia with posterior cruroplasty. This was performed using interrupted 2-0 Ethibond sutures with alternating pledgets to close the diaphragmatic crural defect. The closure was performed first with a36 Mong[address]ougie in place, and the final suture was placed after removal bougie so as to allow easypassage of a 5 mm laparoscopic instrument across the hiatus and avoid stenosis of the distal esophagus at the level of the crural closure. The proximal Pancho limb was clamped with an atraumatic robotic bowel clamp, and we proceeded with intraoperative EGD. The gastric bougie was removed, and the gastroscope was passed through the mouth and into the upper esophagus without resistance. The scope was carefully advanced with gentle CO2 insufflation to visualize the mucosal surfaces of the esophagus. The diaphragmatic crural closure was encountered at 40 cm from the incisors. The scope was carefully advanced across the diaphragmatic crura without significant resistance. The Z- line was visualized and appeared to be within normal limitsand was present at 44 cm from the incisors, confirming 4 cm of intra-abdominal esophageal length. The pouch appeared small without any obvious gastric mucosal abnormalities. The scope was advanced tothe gastrojejunostomy which was widely patent without evidence of stenosis. Scope was then advancedinto the proximal Pancho limb and the Pancho limb mucosa was carefully inspected and there was no evidence of residual marginal ulcer disease present. CO2 insufflation gas was evacuated from the intraluminal aspect of the proximal Pancho limb, and the scope was carefully withdrawn inspecting all mucosal surfaces. No full-thickness injuries were identified along the examined surfaces of the upper gastrointestinal tract. The scope was withdrawn from the patient concluding the intraoperative EGD. The Pancho limb was unclamped, and all robotic instruments were removed after retrieval of the liver hammock stitch, all excess sutures, all needles, and Ray- Dipti sponge. Da Isma robot was undocked from the patient. Pneumoperitoneum was evacuated from the peritoneal cavity. All robotic ports were removed. The skin was closed with interrupted 4-0 subcuticular Monocryl sutures and skin glue. All sponge and instrument counts were correct at the conclusion of the procedure. The patient tolerated the procedure well without any apparent complications. She was allowed to awaken from anesthesia, was extubated, and was transferred to the recovery room in good condition. I was present and scrubbed for the stuart portions of the procedure. Tyron Patel MD General & Bariatric Surgeon [facility] ECT MGR documented in this encounter Plan of Treatment NameTypePriorityAssociated DiagnosesOrder ScheduleFollow up with SurgeryReferral Routine H/O hiatal hernia Ordered: 01/19/2025documented as of this encounter Procedures Procedure NamePriorityDate/TimeAssociated DiagnosisCommentsELECTROLYTESRoutine 01/19/2025 6:54 AM PROJECT MGR WBC (WHITE BLOOD COUNT)Tjkvjrw4301/19/2025 6:54 AM PROJECT MGR PLATELET MXJHJQjiiufa99/26/2025 6:54 AM PROJECT MGR HTSXGIBIMZXjvcoqd46/26/2025 6:54 AM PROJECT MGR ESOPHAGOGASTRODUODENOSCOPY TRANSORAL NWEQWBAWVW08/25/2025 11:35 AM PROJECT MGR Diaphragmatic hernia without obstruction or gangrene LAPS RPR PARAESPHGL HRNA INCL FUNDPLSTY W/O MESH01/18/2025 11:35 AM PROJECT MGR Diaphragmatic hernia without obstruction or gangrene documented in this encounter Results * Platelet Count (01/19/2025 6:54 AM PROJECT MGR)ComponentValueRef RangeTest Method Analysis TimePerformed AtPathologist SignaturePlatelet Vqpar001390 - 400 K/UL 01/19/2025 7:28 AM [facility] LABORATORYSpecimen (Source) Anatomical Location / LateralityCollection Method / VolumeCollection Time Received KknaAkuwo50/26/2025 6:54 AM CST01/19/2025 7:06 AM PROJECT MGR Narrative Authorizing ProviderResult TypeResult StatusIsabelle DIAZ-CHEMATOLOGY ORDERABLEFinal ResultPerforming OrganizationAddressCity/State/ZIP CodePhone Number [facility] [address] [place] [address] * Electrolytes (01/19/2025 6:54 AM PROJECT MGR)ComponentValueRef RangeTest Method Analysis TimePerformed AtPathologist FzvotwirgWporng417646 - 145 mmol/L 01/19/2025 7:30 AM [facility]assium3.43.4 - 5.1 mmol/L103/21/2024 7:30 AM [facility]Chloride10498 - 108 mmol/L103/21/2024 7:30 AM [facility]Carbon Dioxide 3120 - 31 mmol/L103/21/2024 7:30 AM [facility]ITALAnion Gap6.00.0 - 15.0 mmol/L103/21/2024 7:30 AM [facility] Specimen (Source)Anatomical Location / LateralityCollection Method / Volume Collection TimeReceived XanwHjsgt32/26/2025 6:54 AM CST01/19/2025 7:05 AM PROJECT MGR Narrative Authorizing ProviderResult TypeResult StatusIsabelle HECCHEMISTRY ORDERABLEFinal ResultPerforming OrganizationAddressty/State/ZIP CodePhone Number [facility] [address] [place] [address] * (ABNORMAL) WBC (White Blood Count) (01/19/2025 6:54 AM PROJECT MGR)ComponentValueRef RangeTest MethodAnalysis TimePerformed AtPathologist EiaszylmbAXS41.4(H)4.3 - 10.8 K/uL01/19/2025 7:28 AM [facility] (Source)Anatomical Location / LateralityCollection Method / VolumeCollection TimeReceived EtibZcbhi85/26/2025 6:54 AM CST01/19/2025 7:06 AM PROJECT MGR Narrative Authorizing ProviderResult TypeResult StatusIsabelle DIAZ-CHEMATOLOGY ORDERABLEFinal ResultPerforming OrganizationAddressCity/State/ZIP CodePhone Number [facility] [address] [place] [address] * Hemoglobin (01/19/2025 6:54 AM PROJECT MGR)ComponentValueRef RangeTest MethodAnalysis TimePerformed AtPathologist NlcfgyslwKrcruurian89.312.0 - 16.0 gm/dL01/19/2025 7:28 AM [facility] LABORATORYSpecimen (Source)Anatomical Location / LateralityCollection Method / VolumeCollection TimeReceived Time Blood01/19/2025 6:54 AM CST01/19/2025 7:06 AM PROJECT MGR Narrative Authorizing ProviderResult TypeResult Long DIAZ-CHEMATOLOGY ORDERABLEFinal ResultPerforming OrganizationAddressty/State/ZIP CodePhone Number [facility] [address] [address] documented in this encounter Visit Diagnoses Diagnosis H/O hiatal hernia- Primary Personal history of other diseases of digestive system H/O hiatal hernia Personal history of other diseases of digestive system documented in this encounter Admitting Diagnoses Diagnosis H/O hiatal hernia Personal history of other diseases of digestive system documented in this encounter Administered Medications Medication OrderMAR ActionAction DateDoseRateSite saline FLUSH syringe 10 mL 10 mL, Intravenous, EVERY 8 HOURS, First dose on Fri01/18/25 at 1400, Until Discontinued, Pre-Op Given01/18/2025 6:16 PM CST10 mL saline FLUSH syringe 10 mL 10 mL, Intravenous, NEEDED, Starting on Fri01/18/25 at 1013, Until Fri01/18/25 at 1421, Pre-Op, Line Care Given01/18/2025 10:43 AM CST10 mL acetaminophen (TYLENOL) rectal suppository 650 mg 650 mg, Rectal, FOUR TIMES A DAY, First dose on Fri01/18/25 at 1800, Until Discontinued, Post-Op acetaminophen (TYLENOL) tablet 1,000 mg 1,000 mg, oral, ONE HOUR PRE-PROCEDURE ONE TIME DOSE, 1 dose, Starting on Fri01/18/25 at 1013, Until Fri01/18/25 at 1046, Pre-Op Given01/18/2025 10:46 AM CST1,000 mg acetaminophen (TYLENOL) tablet 1,000 mg 1,000 mg, oral, FOUR TIMES A DAY, First dose on Fri01/18/25 at 1800, Until Discontinued, Post-Op Given01/19/2025 8:52 AM CST1,000 dbErtnp9101/18/2025 6:34 PM CST1,000 mg celecoxib (CeleBREX) capsule 200 mg 200 mg, oral, ONCE, 1 dose, On Fri01/18/25 at 1015, Pre-Op Given01/18/2025 10:46 AM BLL824 mg enoxaparin (LOVENOX) injection 40 mg 40 mg, Subcutaneous, DAILY, First dose on Fri01/18/25 at 1745, Until Discontinued, Post-Op, The minimum weight for this order is 35 kg. For 1 mg/kg dose patients >190 kg, consider using an unfractionated heparin infusion. For 1.5 mg/kg dose patients >125 kg, use enoxaparin 1 mg/kg q12h per dose rounding guidelines. This medication has a Blackbox Warning. Click the formulary reference link for more information. Given01/19/2025 8:52 AM CST40 mgLeft PcjTlltv30/25/2025 6:33 PM CST40 mgRight Posterior Arm (SubQ) fentaNYL (SUBLIMAZE) injection 25-50 mcg 25-50 mcg, Intravenous, EVERY 5 MINUTES NEEDED, 8 doses, Starting on Fri01/18/25 at 1404, UntilT01/18/25 at 1702, Phase 1/2, ACUTE SURGICAL PAIN Given01/18/2025 3:00 PM CST25 bfuIfaxn69/25/2025 2:38 PM CST25 mcg FLUoxetine (PROzac) capsule 60 mg 60 mg, oral, AT BEDTIME, First dose on Fri01/18/25 at 2200, Until Discontinued Given01/18/2025 9:44 PM CST60 mg fluticasone-vilanteroL (Breo Ellipta) 100-25 mcg/dose oral inhaler 1 puff 1 puff, Inhalation, DAILY, First dose on Fri01/19/25 at 0800, Until Discontinued gabapentin (NEURONTIN) capsule 600 mg 600 mg, oral, ONCE, 1 dose, On Fri01/18/25 at 1015, Pre-Op Given01/18/2025 10:46 AM RZN342 mg heparin injection 5,000 Units 5,000 Units, Subcutaneous, ONE HOUR PRE-PROCEDURE ONE TIME DOSE, 1 dose, Starting on Fri01/18/25 at 1013, Until Fri01/18/25 at 1057, Pre-Op Given01/18/2025 10:57 AM CST5,000 UnitsRight Upper Outer Quadrant hydrOXYzine HCl (VISTARIL) injection 25-50 mg 25-50 mg, IntraMUSCULAR, EVERY 4 HOURS NEEDED, Starting on Fri01/18/25 at 1717, Until Fri01/19/25 at 1802, Post-Op, for pain with opioid if opioid alone is not adequately controlling pain. hydrOXYzine pamoate (Vistaril) capsule 25 mg 25 mg, oral, ONCE NEEDED, MAY REPEAT X 1, 2 doses, Starting on Fri01/18/25 at 1404, Until Fri01/18/25 at 1702, Phase 1/2, for augmentation of narcotic based analgesia while in recovery area. Notto be used if given within the past 6 hours. Given01/18/2025 3:14 PM CST25 mg hydrOXYzine pamoate (Vistaril) capsule 25-50 mg 25-50 mg, oral, EVERY 4 HOURS NEEDED, Starting on Fri01/18/25 at 1717, Until Fri01/19/25 at 1802, Post-Op, for pain with opioid if opioid alone is not adequately controlling pain. Given01/19/2025 9:03 AM CST25 unCyacm2801/19/2025 12:57 AM CST25 mg hyoscyamine sulfate (LEVSIN) sublingual tablet 0.125 mg 0.125 mg, Sublingual, EVERY 4 HOURS NEEDED, Starting on Fri01/18/25 at 1736, Until Fri01/19/25at 1802, GI Tract Spasm Given01/19/2025 5:05 AM CST0.125 mg lactated Ringers (LR) IV infusion at 100 mL/hr, Intravenous, CONTINUOUS, Starting on Fri01/18/25 at 1415, Until Fri01/18/25 at 1702, Phase 1/2 New Bag01/18/2025 3:10 PM BCX229 mL/hr oxyCODONE (immediate release) (ROXICODONE) tablet 2.5-5 mg 2.5-5 mg, oral, EVERY 4 HOURS NEEDED, Starting on Fri01/18/25 at 1717, Until Fri01/19/25 at 1802, Post-Op, Pain, when taking PO Given01/19/2025 9:03 AM CST5 pxRbcmz4001/19/2025 12:57 AM CST5 dvSxobr4401/18/2025 8:31 PM CST5 mg oxyCODONE (immediate release) (ROXICODONE) tablet 5 mg 5 mg, oral, NEEDED, MAY REPEAT X1, 2 doses, Starting on Fri01/18/25 at 1404, Until Fri01/18/25at 1702, Phase 1/2, Pain, when taking PO, pain while in recovery area Given01/18/2025 3:14 PM CST5 mg pantoprazole (PROTONIX) vial for injection 40 mg 40 mg, IV Push, DAILY, First dose on Fri01/18/25 at 1745, Until Discontinued Indications:stress ulcer fmsbjgskzaqDpsrf82/26/2025 8:54 AM CST40 mgGiven 01/18/2025 6:34 PM CST40 mg prochlorperazine (COMPAZINE) injection 5-10 mg 5-10 mg, Intravenous, EVERY 6 HOURS NEEDED, Starting on Fri01/18/25 at 1510, Until Fri01/19/25at 1802, Nausea/Vomiting, 2nd choice senna (SENOKOT) tablet 8.6-17.2 mg 8.6-17.2 mg (1-2 tablet), oral, TWICE A DAY, First dose on Fri01/18/25 at 2000, Until Discontinued Given01/19/2025 8:52 AM CST8.6 ufWqtjb8201/18/2025 8:31 PM CST17.2 mgdocumented in this encounter Active and Recently Administered Medications Times are shown in PROJECT MGR.Medication Order/ IV FLUID ALERT Complete IV bag from OR at 75 milliliters/hour, followed by IV ordered below, Post-Op saline FLUSH syringe 10 mL (CANCELED) 10 mL, Intravenous, EVERY 8 HOURS, First dose on Fri01/18/25 at 1400, Until Discontinued, Pre-Op * 1816 (Given - Provider: Jose Francisco Moncada, XAVIER) acetaminophen (TYLENOL) rectal suppository 650 mg(Linked Group 1) 650 mg, Rectal, FOUR TIMES A DAY, First dose on Fri01/18/25 at 1800, Until Discontinued, Post-Op * 1834 (See Alternative - Provider: Jose Francisco Moncada RN) * 2200 (See Alternative - Provider: Jose Francisco Moncada RN) * 0852 (See Alternative - Provider: Carol Ann Carrasquillo, XAVIER) * 1200 (See Alternative - Provider: Carol Ann Carrasquillo, XAVIER) acetaminophen (TYLENOL) tablet 1,000 mg (COMPLETED) 1,000 mg, oral, ONE HOUR PRE-PROCEDURE ONE TIME DOSE, 1 dose, Starting on Fri01/18/25 at 1013, Until Fri01/18/25 at 1046, Pre-Op * 1046 (Given - Provider: Zara Mccann, XAVIER) acetaminophen (TYLENOL) tablet 1,000 mg(Linked Group 1) 1,000 mg, oral, FOUR TIMES A DAY, First dose on Fri01/18/25 at 1800, Until Discontinued, Post-Op * 1834 (Given - Provider: Jose Francisco Moncada RN) * 2200 (Canceled Entry - Provider: Jose Francisco Moncada RN) * 0852 (Given - Provider: Carol Ann Carrasquillo RN) * 1200 (Not Given - Provider: Carol Ann Carrasquillo RN - Reason: Not in room - Comment: Discharged, pt stated will take at home) ceFAZolin (Ancef) 2 g in sterile water IV syringe (COMPLETED) Intravenous, ONCE ON INDUCTION, 1 dose, Starting on Fri01/18/25 at 1013, Until Fri01/18/25 at 1202, Pre-Op, Administer over 3 Minutes * 1202 (New Bag - Provider: Carie Sanchez CRNA) celecoxib (CeleBREX) capsule 200 mg (COMPLETED) 200 mg, oral, ONCE, 1 dose, On Fri01/18/25 at 1015, Pre-Op * 1046 (Given - Provider: Zara Mccann RN) Discontinue prior antibiotics/no post-op antibiotics needed (uncomplicated procedure with no infection present; e.g. non-perforated appendicitis, no pericholecystic abscess, ischemic non-perforated bowel, etc.) Post-Op enoxaparin (LOVENOX) injection 40 mg 40 mg, Subcutaneous, DAILY, First dose on Fri01/18/25 at 1745, Until Discontinued, Post-Op, The minimum weight for this order is 35 kg. For 1 mg/kg dose patients >190 kg, consider using an unfractionated heparin infusion. For 1.5 mg/kg dose patients >125 kg, use enoxaparin 1 mg/kg q12h per dose rounding guidelines. This medication has a Blackbox Warning. Click the formulary reference link for more information. * 1833 (Given - Provider: Jose Francisco Moncada RN) * 0852 (Given - Provider: Carol Ann Carrasquillo RN) FLUoxetine (PROzac) capsule 60 mg 60 mg, oral, AT BEDTIME, First dose on Fri01/18/25 at 2200, Until Discontinued * 2144 (Given - Provider: Jose Francisco Moncada RN) fluticasone-vilanteroL (Breo Ellipta) 100-25 mcg/dose oral inhaler 1 puff 1 puff, Inhalation, DAILY, First dose on Fri01/19/25 at 0800, Until Discontinued * 0904 (Declined - Provider: Carol Ann Carrasquillo RN) gabapentin (NEURONTIN) capsule 600 mg (COMPLETED) 600 mg, oral, ONCE, 1 dose, On Fri01/18/25 at 1015, Pre-Op * 1046 (Given - Provider: Zara Mccann, RN) heparin injection 5,000 Units (COMPLETED) 5,000 Units, Subcutaneous, ONE HOUR PRE-PROCEDURE ONE TIME DOSE, 1 dose, Starting on Fri01/18/25 at 1013, Until Fri01/18/25 at 1057, Pre-Op * 1057 (Given - Provider: Zara Mccann, RN) No NSAID indicated / NSAID already ordered Post-Op pantoprazole (PROTONIX) vial for injection 40 mg 40 mg, IV Push, DAILY, First dose on Fri01/18/25 at 1745, Until Discontinued * 183 (Given - Provider: Jose Francisco Moncada, XAVIER) * 0854 (Given - Provider: Carol Ann Carrasquillo, XAVIER) senna (SENOKOT) tablet 8.6-17.2 mg 8.6-17.2 mg (1-2 tablet), oral, TWICE A DAY, First dose on Fri01/18/25 at 2000, Until Discontinued * 2030 (Given - Provider: Jose Francisco Moncada RN) * 0852 (Given - Provider: Carol Ann Carrasquillo, XAVIER) Medication Order/ lactated Ringers (LR) IV infusion (CANCELED) at 100 mL/hr, Intravenous, CONTINUOUS, Starting on Fri01/18/25 at 1415, Until Fri01/18/25 at 1702, Phase 1/2 * 1510 (New Bag - Provider: Maria Teresa Pacheco, XAVIER) * 1856 (Stopped - Provider: Jose Francisco Moncada, XAVIER) Medication Order/ saline FLUSH syringe 10 mL (CANCELED) 10 mL, Intravenous, NEEDED, Starting on Fri01/18/25 at 1013, Until Fri01/18/25 at 1421, Pre-Op, Line Care * 1043 (Given - Provider: Zara Mccann, XAVIER) albuterol HFA (Proventil;Ventolin HFA) inhaler 2 puff 2 puff, Inhalation, EVERY 4 HOURS NEEDED, Starting on Fri01/18/25 at 1717, Until Fri01/19/25 at 1802, shortness of breath BUPivacaine 0.25%-EPINEPHrine 1:200,000 (PF) (SENSORCAINE) injection (CANCELED) INTRA-PROCEDURE NEEDED, Starting on Fri01/18/25 at 1232, Until Fri01/18/25 at 1421, Intra-Op * 1232 (Given - Provider: Tyron Patel MD) * 1406 (Given - Provider: Tyron Patel MD) fentaNYL (SUBLIMAZE) injection 25-50 mcg (CANCELED) 25-50 mcg, Intravenous, EVERY 5 MINUTES NEEDED, 8 doses, Starting on Fri01/18/25 at 1404, UntilFri01/18/25 at 1702, Phase 1/2, ACUTE SURGICAL PAIN * 1438 (Given - Provider: Maria Teresa Pacheco RN) * 1500 (Given - Provider: Maria Teresa Pacheco RN) HYDROmorphone (Dilaudid) syringe 0.2-0.4 mg 0.2-0.4 mg, Intravenous, EVERY 4 HOURS NEEDED, Starting on Fri01/18/25 at 1717, Until Fri01/19/25 at 1802, Post-Op, Pain, when NOT taking PO hydrOXYzine HCl (VISTARIL) injection 25-50 mg(Linked Group 2) 25-50 mg, IntraMUSCULAR, EVERY 4 HOURS NEEDED, Starting on Fri01/18/25 at 1717, Until Fri01/19/25 at 1802, Post-Op, for pain with opioid if opioid alone is not adequately controlling pain. * 0057 (See Alternative - Provider: Da Bailey RN) * 0903 (See Alternative - Provider: Carol Ann Carrasquillo RN) hydrOXYzine pamoate (Vistaril) capsule 25 mg (CANCELED)(Linked Group 3) 25 mg, oral, ONCE NEEDED, MAY REPEAT X 1, 2 doses, Starting on Fri01/18/25 at 1404, Until Fri01/18/25 at 1702, Phase 1/2, for augmentation of narcotic based analgesia while in recovery area. Notto be used if given within the past 6 hours. * 1514 (Given - Provider: Maria Teresa Pacheco RN) hydrOXYzine pamoate (Vistaril) capsule 25-50 mg(Linked Group 2) 25-50 mg, oral, EVERY 4 HOURS NEEDED, Starting on Fri01/18/25 at 1717, Until Fri01/19/25 at 1802, Post-Op, for pain with opioid if opioid alone is not adequately controlling pain. * 005 (Given - Provider: Da Bailey RN) * 0903 (Given - Provider: Carol Ann Carrasquillo, XAVIER) hyoscyamine sulfate (LEVSIN) sublingual tablet 0.125 mg 0.125 mg, Sublingual, EVERY 4 HOURS NEEDED, Starting on Fri01/18/25 at 1736, Until Fri01/19/25at 1802, GI Tract Spasm * 0505 (Given - Provider: Da Bailey RN) methocarbamoL (ROBAXIN) tablet 500 mg 500 mg, oral, EVERY 6 HOURS NEEDED, Starting on Fri01/18/25 at 1717, Until Fri01/19/25 at 1802, incisional/abdominal wall pain naloxone (NARCAN) injection 0.1 mg 0.1 mg, Intravenous, EVERY 1 MINUTE PRN, Starting on Fri01/18/25 at 1717, Until Fri01/19/25 at 1802, Post-Op, Opiate Reversal ondansetron (Zofran) injection 4 mg 4 mg, Intravenous, EVERY 12 HOURS NEEDED, Starting on Fri01/18/25 at 1717, Until Fri01/19/25 at 1802, Post-Op, nausea oxyCODONE (immediate release) (ROXICODONE) tablet 2.5-5 mg 2.5-5 mg, oral, EVERY 4 HOURS NEEDED, Starting on Fri01/18/25 at 1717, Until Fri01/19/25 at 1802, Post-Op, Pain, when taking PO * 2030 (Given - Provider: Jose Francisco Moncada RN) * 0057 (Given - Provider: Da Bailey RN) * 0903 (Given - Provider: Carol Ann Carrasquillo, XAVIER) oxyCODONE (immediate release) (ROXICODONE) tablet 5 mg (CANCELED)(Linked Group 4) 5 mg, oral, NEEDED, MAY REPEAT X1, 2 doses, Starting on Fri01/18/25 at 1404, Until Fri01/18/25at 1702, Phase 1/2, Pain, when taking PO, pain while in recovery area * 1514 (Given - Provider: Maria Teresa Pacheco RN) polyethylene glycol (MIRALAX) packet 17 g 17 g, oral, DAILY NEEDED, Starting on Fri01/18/25 at 1717, Until Fri01/19/25 at 1802, Constipation, 1st choice prochlorperazine (COMPAZINE) injection 5-10 mg 5-10 mg, Intravenous, EVERY 6 HOURS NEEDED, Starting on Fri01/18/25 at 1510, Until Fri01/19/25at 1802, Nausea/Vomiting, 2nd choice SUMAtriptan succinate (IMITREX) tablet 50 mg 50 mg, oral, TWICE A DAY NEEDED, Starting on Fri01/18/25 at 1717, Until Fri01/19/25 at 1802, migraine headache Order Group 1: acetaminophen (TYLENOL) tablet 1,000 mgJump to med 1,000 mg, oral, FOUR TIMES A DAY, First dose on Fri01/18/25 at 1800, Until Discontinued, Post-Op Or acetaminophen (TYLENOL) rectal suppository 650 mgJump to med 650 mg, Rectal, FOUR TIMES A DAY, First dose on Fri01/18/25 at 1800, Until Discontinued, Post-Op Group 2: hydrOXYzine pamoate (Vistaril) capsule 25-50 mgJump to med 25-50 mg, oral, EVERY 4 HOURS NEEDED, Starting on Fri01/18/25 at 1717, Until Fri01/19/25 at 1802, Post-Op, for pain with opioid if opioid alone is not adequately controlling pain. Or hydrOXYzine HCl (VISTARIL) injection 25-50 mgJump to med 25-50 mg, IntraMUSCULAR, EVERY 4 HOURS NEEDED, Starting on Fri01/18/25 at 1717, Until Fri01/19/25 at 1802, Post-Op, for pain with opioid if opioid alone is not adequately controlling pain. Group 3: hydrOXYzine pamoate (Vistaril) capsule 25 mg (CANCELED)Jump to med 25 mg, oral, ONCE NEEDED, MAY REPEAT X 1, 2 doses, Starting on Fri01/18/25 at 1404, Until Fri01/18/25 at 170, Phase 1/2, for augmentation of narcotic based analgesia while in recovery area. Notto be used if given within the past 6 hours. Or hydrOXYzine HCl (VISTARIL) injection 25 mg (CANCELED) 25 mg, IntraMUSCULAR, ONCE NEEDED, MAY REPEAT X 1, 2 doses, Starting on Fri01/18/25 at 1404, Until Fri01/18/25 at 170, Phase 1/2, for augmentation of narcotic based analgesia while in recovery area and unable to take PO. Not to be given within the past 6 hours. Group 4: oxyCODONE (immediate release) (ROXICODONE) tablet 5 mg (CANCELED)Jump to med 5 mg, oral, NEEDED, MAY REPEAT X1, 2 doses, Starting on Fri01/18/25 at 1404, Until Fri01/18/25at 170, Phase 1/2, Pain, when taking PO, pain while in recovery area Or oxyCODONE-acetaminophen (PERCOCET) 5-325 mg tablet 1 tablet (CANCELED) 1 tablet, oral, NEEDED, MAY REPEAT X1, 2 doses, Starting on Fri01/18/25 at 1404, Until Fri01/18/25 at 170, Phase 1/2, Pain, when taking PO, pain while in recovery area Or HYDROcodone-acetaminophen (NORCO) 5-325 mg tablet 1 tablet (CANCELED) 1 tablet, oral, NEEDED, MAY REPEAT X1, 2 doses, Starting on Fri01/18/25 at 1404, Until Fri01/18/25 at 1702, Phase 1/2, Pain, when taking PO, pain while in recovery area documented in this encounter Care Teams Team MemberRelationshipSpecialtyStart DateEnd Date Jason Farrar MD [address] [place] [address] PCP - GeneralFamily Twrktwag25/14/25documented as of this encounter
--- OUTSIDE RECORDS SUMMARY | 2025-01-18 11:35 | XMS_ITS | Encounter Summary ---
Author Organization [facility] Address [address] [place] [address] Care Team Providers Care Director Emergency Department Name Role Phone Jason Farrar MD Primary Care Provider [phone] Reason for Visit * Inpatient Admission (Routine)SpecialtyDiagnoses / ProceduresReferred By ContactReferred To Contact Diagnoses Diaphragmatic hernia without obstruction or gangrene Diaphragmatic hernia without obstruction or gangrene [K44.9] Procedures LAPS RPR PARAESPHGL HRNA INCL FUNDPLSTY W/O MESH ESOPHAGOGASTRODUODENOSCOPY TRANSORAL DIAGNOSTIC ROBOTIC XI ASSISTED LAPAROSCOPIC HIATAL HERNIA REPAIR, INTRAOPERATIVE EGD Referral IDStatusReasonStart DateExpiration DateVisits RequestedVisits [id number] Encounter Details DateTypeDepartmentCare Team (Latest Contact Info)Bcrttfxuaep10/25/2025 11:35 AM POWER LINEMAN - 01/18/2025 3:10 PM CSTSurM[facility] [address] [place] [address] [place] [address] Tyron Patel MD [address] [place] [address] ROBOTIC XI ASSISTED LAPAROSCOPIC HIATAL HERNIA REPAIR, INTRAOPERATIVE ESOPHAGOGASTRODUEDENOSCOPY Surgery Details Date/TimeStatusLocationORServicePatient ClassCase ClassCase TypeTrauma Case? 01/18/2025 11:35 AMPostedNMR ELM41IqmphbcItmz Day SurgeryOutpatient in a Bed Panel 1 ProcedureLRBAnesOp RegionWound ClassCommentsROBOTIC XI ASSISTED LAPAROSCOPIC HIATAL HERNIA REPAIR, INTRAOPERATIVE ESOPHAGOGASTRODUEDENOSCOPYN/A GeneralAbdomenClean (I) SurgeonSurgeon RoleServicePanelKdaniel, Tyron, IAXnrzrhfZsgcgkp3daqqihsony in this encounter Social History Tobacco UseTypesPacks/DayYears UsedDateSmoking Tobacco: NeverPassive [...] were you homeless or living in a detention (including now)?No01/18/2025HC UtilitiesAnswerDate RecordedIn the past 12 months has the electric, gas, oil, or water company threatened to shut off services in your home?No01/18/2025CommentsNoSex and Gender InformationValueDate RecordedSex Assigned at BirthNot on fileLegal SexFemale 12/22/2024 3:31 PM CDTGender IdentityNot on fileSexual OrientationNot on file documented as of this encounter Last Filed Vital Signs Vital SignReadingTime TakenCommentsBlood Fxfoewza300/7401/18/2025 3:00 PM POWER LINEMAN Gddtt092101/18/2025 3:00 PM OTQCnebioptfyo29.4 ??C (97.5 ??F)01/18/2025 2:25 PM CSTRespiratory Zrvd617603/20/2024 3:00 PM CSTOxygen Swdfkiqbjh65%01/18/2025 3:00 PM CSTInhaled Oxygen Concentration--Cheuic54.3 kg (155 lb)01/13/2025 1:11 PM POWER LINEMAN Mhpbca965.7 cm (5' 8)01/13/2025 1:11 PM CSTBody Mass [...] Your Medications These medications were sent to [facility] [place] [address] Hours: Mon-Fri: 7:30AM-6PM / Sat: 9AM-3PM / Sun: 9AM-3PM hyoscyamine sulfate 0.125 mg sublingual tablet methocarbamoL 500 mg tablet omeprazole 20 mg delayed release capsule ondansetron 4 mg ODT oxyCODONE (immediate release) 5 mg tablet FOLLOWUP: Contact information for follow-up [facility] PROVIDER [facility] [address] Specify time frame for follow up?: 2 [...] 54 year old female who presented to [facility] on 01/18/25 forrob assisted lap hiatal hernia [...] patient. The patient was discharged home on 01/19/25 in good condition. All questions were sought [...] appropriate mood and affect. PROCEDURES: General Surgery: Checo assisted hiatal hernia repair + intra op [...] rn, and attending physician. Isabelle Long PA-C [facility] I have rounded with and discussed the patient's plan of care with the patient's RN. Time: 30 minutes or less Cosigned by Tyron Patel MD at 01/19/2025 5:43 PM POWER LINEMAN R LINEMAN R LINEMAN documented in this encounter Medications at Time [...] stomach healing. 60 capsule 01/19/2025 10:00 AM 01/19/2025 ondansetron (ZOFRAN) 4 mg oral ODT Dissolve [...] 01/19/2025 11:20 AM CST Felicia Ibarra [id number] P: Discharge to Home A: Discharged ambulatory [...] (155 lb) SpO2 95% BMI 23.57 kg/m?? R LINEMAN * Da Bailey RN - 01/19/2025 6:30 [...] SL. D- Discharge: TBD. Anticipate d/c home. R LINEMAN * Jose Francisco Moncada RN - 01/18/2025 8:42 PM CST Med-Surg Care Progression Note Type: Shift to shift summary Length of stay: 0 days Code Status: Full Code Primary Problem: Hiatal hernia Gastroesophageal reflux disease Heartburn History of Pancho-en-Y gastric bypass Summary: 1. Laparoscopic hiatal hernia repair, with robotic assistance (CPT 94882) 2. Intraoperative esophagogastroduodenoscopy without biopsy (CPT 40431) F- Feeding & Fluids: tolerating bariatric clear [...] 0): (not recorded) Ambulating with SBA to BSC Early mobility Phases 1-4: (not recorded) U- Urologic/bowel: No data recorded Voiding in BSC G- Glycemic Control: Not applicable T- Treatment: post-op care, pain management. Monitor N/V, mobility I- Invasive Devices: PIV SL'd D- Discharge: home tomorrow R LINEMAN documented in this encounter Nursing Notes * [...] of immobility risks and complications Outcome: Completed R LINEMAN * Da Bailey RN - 01/19/2025 5:51 AM CST Problem: Anticoagulation, pharmacologic therapy Goal: Adheres to therapeutic regimen Outcome: Met this shift Problem: Falls/Injury-Risk of Goal: Absence of Falls/Injury Outcome: Met this shift Flowsheets (Taken 01/19/2025 0058) Environmental Safety Interventions: Standard Interventions in Place Fall Risk Light on Outside Patient Room Fall Risk applications systems engineer Door (NMR) Patient/Family Reminded Regarding Fall Prevention [...] devices as needed Outcome: Met this shift R LINEMAN * Jose Francisco Moncada RN - 01/18/2025 [...] within specified parameters Outcome: Met this shift R LINEMAN * Maria Teresa Pacheco RN - 01/18/2025 [...] chest pain, and right shoulder- CARRIE aware, aware, relief with fent and oxy Nausea: [...] Called to let him know room number R LINEMAN R LINEMAN documented in this encounter OR Notes * OR Surgeon - Tyron Patel MD - 01/18/2025 12:07 PM CST [facility] Operative Note DATE OF OPERATION: 01/18/25 ATTENDING SURGEON: Tyron Patel MD LEAD ELECTRICAL CONTROLS ENGINEER: Isabelle Long PA-C PREOPERATIVE DIAGNOSES: Hiatal hernia Gastroesophageal reflux disease Heartburn History of Pancho-en-Y gastric bypass PROCEDURES PERFORMED: 1. Laparoscopic hiatal hernia repair, with robotic assistance (CPT 49031) 2. Intraoperative esophagogastroduodenoscopy without biopsy (CPT 12545) POSTOPERATIVE DIAGNOSES: Hiatal hernia Gastroesophageal reflux disease [...] eating. Surgical options were presented the patient andheather has elected to proceed with repair of [...] prior to beginning the operation. A 36 Romansh Endolumik lighted gastric bougie was inserted into [...] The closure was performed first with a36 [address] in place, and the final suture [...] Tyron Patel MD General & Bariatric Surgeon [facility] R LINEMAN documented in this encounter Plan of Treatment NameTypePriorityAssociated DiagnosesOrder ScheduleFollow up with SurgeryReferral Routine H/O hiatal hernia Ordered: 01/19/2025documented as of this encounter Procedures Procedure NamePriorityDate/TimeAssociated DiagnosisCommentsELECTROLYTESRoutine 01/19/2025 6:54 AM POWER LINEMAN WBC (WHITE BLOOD COUNT)Rybumjg7301/19/2025 6:54 AM POWER LINEMAN PLATELET TZLSWJbvbala95/26/2025 6:54 AM POWER LINEMAN XBZUOQSVCIWarzeuw94/26/2025 6:54 AM POWER LINEMAN ESOPHAGOGASTRODUODENOSCOPY TRANSORAL KUBYYTTWVN72/25/2025 11:35 AM POWER LINEMAN Diaphragmatic hernia without obstruction or gangrene LAPS RPR PARAESPHGL HRNA INCL FUNDPLSTY W/O MESH01/18/2025 11:35 AM POWER LINEMAN Diaphragmatic hernia without obstruction or gangrene documented in this encounter Results * Platelet Count (01/19/2025 6:54 AM POWER LINEMAN)ComponentValueRef RangeTest Method Analysis TimePerformed AtPathologist SignaturePlatelet Vxizz264097 - 400 K/UL 01/19/2025 7:28 AM [facility]YSpecimen (Source) Anatomical Location / LateralityCollection Method / VolumeCollection Time Received FnuvMwxew66/26/2025 6:54 AM CST01/19/2025 7:06 AM POWER LINEMAN Narrative Authorizing ProviderResult TypeResult StatusIsabelle DIAZ-CHEMATOLOGY ORDERABLEFinal ResultPerforming OrganizationAddressCity/State/ZIP CodePhone Number [facility] [address] [place] [address] * Electrolytes (01/19/2025 6:54 AM POWER LINEMAN)ComponentValueRef RangeTest Method Analysis TimePerformed AtPathologist IuckjxvfwUtuqpv151620 - 145 mmol/L 01/19/2025 7:30 AM [facility]assium3.43.4 - 5.1 mmol/L103/21/2024 7:30 AM [facility]ITALChloride10498 - 108 mmol/L103/21/2024 7:30 AM [facility]Carbon Dioxide 3120 - 31 mmol/L103/21/2024 7:30 AM [facility]Anion Gap6.00.0 - 15.0 mmol/L103/21/2024 7:30 AM [facility] Specimen (Source)Anatomical Location / LateralityCollection Method / Volume Collection TimeReceived SygnEiqja23/26/2025 6:54 AM CST01/19/2025 7:05 AM POWER LINEMAN Narrative Authorizing ProviderResult TypeResult StatusIsabelle DIAZ-CCHEMISTRY ORDERABLEFinal ResultPerforming OrganizationAddressCity/State/ZIP CodePhone Number [facility] [address] [place] [address] * (ABNORMAL) WBC (White Blood Count) (01/19/2025 6:54 AM POWER LINEMAN)ComponentValueRef RangeTest MethodAnalysis TimePerformed AtPathologist FuimyrcogCDB89.4(H)4.3 - 10.8 K/uL01/19/2025 7:28 AM [facility] (Source)Anatomical Location / LateralityCollection Method / VolumeCollection TimeReceived EysfZbeqx85/26/2025 6:54 AM CST01/19/2025 7:06 AM POWER LINEMAN Narrative Authorizing ProviderResult TypeResult StatusIsabelle DIAZ-CHEMATOLOGY ORDERABLEFinal ResultPerforming OrganizationAddressCity/State/ZIP CodePhone Number [facility] [address] [place] [address] * Hemoglobin (01/19/2025 6:54 AM POWER LINEMAN)ComponentValueRef RangeTest MethodAnalysis TimePerformed AtPathologist VjphhkwieWvmzfpqwhn82.312.0 - 16.0 gm/dL01/19/2025 7:28 AM [facility] (Source)Anatomical Location / LateralityCollection Method / VolumeCollection TimeReceived Time Blood01/19/2025 6:54 AM CST01/19/2025 7:06 AM POWER LINEMAN Narrative Authorizing ProviderResult TypeResult StatusIsabelle DIAZ-CHEMATOLOGY ORDERABLEFinal ResultPerforming OrganizationAddressCity/State/ZIP CodePhone Number [facility] [address] [place] [address] documented in this encounter Visit Diagnoses Diagnosis H/O hiatal hernia- Primary Personal history of other diseases of digestive system H/O hiatal hernia Personal history of other diseases of digestive system Diaphragmatic hernia without obstruction or gangrene Diaphragmatic hernia without mention of obstruction or gangrene documented in this encounter Admitting Diagnoses Diagnosis [...] Until Discontinued, Post-Op Given01/19/2025 8:52 AM CST1,000 aaEmbad9301/18/2025 6:34 PM CST1,000 mg BUPivacaine 0.25%-EPINEPHrine 1:200,000 (PF) (SENSORCAINE) injection INTRA-PROCEDURE NEEDED, Starting on Fri01/18/25 at 1232, Until Fri01/18/25 at 1421, Intra-Op Given01/18/2025 2:06 PM CST20 kTYeyvejtwviHbcyd39/25/2025 12:32 PM CST60 mL Procedural celecoxib (CeleBREX) capsule 200 mg 200 mg, oral, ONCE, 1 dose, On Fri01/18/25 at 1015, Pre-Op Given01/18/2025 10:46 AM HAX056 mg enoxaparin (LOVENOX) injection 40 mg 40 [...] more information. Given01/19/2025 8:52 AM CST40 mgLeft NtfZvhzj30/25/2025 6:33 PM CST40 mgRight Posterior Arm (SubQ) fentaNYL (SUBLIMAZE) injection 25-50 mcg 25-50 mcg, Intravenous, EVERY 5 MINUTES NEEDED, 8 doses, Starting on Fri01/18/25 at 1404, UntilFri01/18/25 at 1702, Phase 1/2, ACUTE SURGICAL PAIN Given01/18/2025 3:00 PM CST25 smgNmttm76/25/2025 2:38 PM CST25 mcg FLUoxetine (PROzac) capsule [...] Fri01/18/25 at 1015, Pre-Op Given01/18/2025 10:46 AM VQX948 mg heparin injection 5,000 Units 5,000 Units, [...] adequately controlling pain. Given01/19/2025 9:03 AM CST25 psViwct8501/19/2025 12:57 AM CST25 mg hyoscyamine sulfate (LEVSIN) sublingual tablet 0.125 mg 0.125 mg, Sublingual, EVERY 4 HOURS NEEDED, Starting on Fri01/18/25 at 1736, Until Fri01/19/25at 1802, GI Tract Spasm Given01/19/2025 5:05 AM CST0.125 mg lactated Ringers (LR) IV infusion at 100 mL/hr, Intravenous, CONTINUOUS, Starting on Fri01/18/25 at 1415, Until Fri01/18/25 at 1702, Phase 1/2 New Bag01/18/2025 3:10 PM VAI722 mL/hr oxyCODONE (immediate release) (ROXICODONE) tablet 2.5-5 mg 2.5-5 mg, oral, EVERY 4 HOURS NEEDED, Starting on Fri01/18/25 at 1717, Until Fri01/19/25 at 1802, Post-Op, Pain, when taking PO Given01/19/2025 9:03 AM CST5 uaFjylj5101/19/2025 12:57 AM CST5 faKpmdc0601/18/2025 8:31 PM CST5 mg oxyCODONE (immediate release) [...] Fri01/18/25 at 1745, Until Discontinued Indications:stress ulcer pjqzvexqgbzDunwg66/26/2025 8:54 AM CST40 mgGiven 01/18/2025 6:34 PM CST40 mg prochlorperazine (COMPAZINE) injection 5-10 mg 5-10 mg, Intravenous, EVERY 6 HOURS NEEDED, Starting on Fri01/18/25 at 1510, Until Fri01/19/25at 1802, Nausea/Vomiting, 2nd choice senna (SENOKOT) tablet 8.6-17.2 mg 8.6-17.2 mg (1-2 tablet), oral, TWICE A DAY, First dose on Fri01/18/25 at 2000, Until Discontinued Given01/19/2025 8:52 AM CST8.6 lfWpqoc2801/18/2025 8:31 PM CST17.2 mgdocumented in this encounter Active and Recently Administered Medications Times are shown in POWER LINEMAN.Medication Order IV FLUID ALERT Complete IV bag from OR at 75 milliliters/hour, followed by IV ordered below, Post-Op saline FLUSH syringe 10 mL (CANCELED) 10 mL, Intravenous, EVERY 8 HOURS, First dose on Fri01/18/25 at 1400, Until Discontinued, Pre-Op * 1816 (Given - Provider: Jose Francisco Moncada RN) acetaminophen (TYLENOL) rectal suppository 650 mg(Linked Group 1) 650 mg, Rectal, FOUR TIMES A DAY, First dose on Fri01/18/25 at 1800, Until Discontinued, Post-Op * 1834 (See Alternative - Provider: Jose Francisco Moncada RN) * 2200 (See Alternative - Provider: Jose Francisco Moncada RN) * 0852 (See Alternative - Provider: Carol Ann Carrasquillo RN) * 1200 (See Alternative - Provider: Carol Ann Carrasquillo, XAVIER) acetaminophen (TYLENOL) tablet 1,000 mg (COMPLETED) 1,000 mg, oral, ONE HOUR PRE-PROCEDURE ONE TIME DOSE, 1 dose, Starting on Fri01/18/25 at 1013, Until Fri01/18/25 at 1046, Pre-Op * 1046 (Given - Provider: Zara Mccann RN) acetaminophen (TYLENOL) tablet 1,000 mg(Linked Group 1) [...] on Fri01/18/25 at 2200, Until Discontinued * 214 (Given - Provider: Jose Francisco Moncada RN) fluticasone-vilanteroL (Breo Ellipta) 100-25 mcg/dose oral inhaler 1 puff 1 puff, Inhalation, DAILY, First dose on Fri01/19/25 at 0800, Until Discontinued * 0904 (Declined - Provider: Carol Ann Carrasquillo RN) gabapentin (NEURONTIN) capsule 600 mg (COMPLETED) 600 mg, oral, ONCE, 1 dose, On Fri01/18/25 at 1015, Pre-Op * 1046 (Given - Provider: Zara Mccann RN) heparin injection 5,000 Units (COMPLETED) 5,000 Units, Subcutaneous, ONE HOUR PRE-PROCEDURE ONE TIME DOSE, 1 dose, Starting on Fri01/18/25 at 1013, Until Fri01/18/25 at 1057, Pre-Op * 1057 (Given - Provider: Zara Mccann RN) No NSAID indicated / NSAID already ordered Post-Op pantoprazole (PROTONIX) vial for injection 40 mg 40 mg, IV Push, DAILY, First dose on Fri01/18/25 at 1745, Until Discontinued * 1833 (Given - Provider: Jose Francisco Moncada RN) * 0854 (Given - Provider: Carol Ann [...] * 1856 (Stopped - Provider: Jose Francisco Moncada RN) Medication Order/ saline FLUSH syringe 10 mL [...] * 0057 (See Alternative - Provider: Da Bailey, XAVIER) * 0903 (See Alternative - Provider: Carol Ann Carrasquillo, XAVIER) hydrOXYzine pamoate (Vistaril) capsule 25 mg (CANCELED)(Linked [...] is not adequately controlling pain. * 0057 (Given - Provider: Da Bailey [...] * 0903 (Given - Provider: Carol Ann Carrasquillo RN) oxyCODONE (immediate release) (ROXICODONE) tablet 5 mg [...] MemberRelationshipSpecialtyStart DateEnd Date Jason Farrar MD [address] [place] [address] PCP - GeneralFamily Dgixpoet98/14/25documented as of this encounter
[2025-02-03 15:59] VITALS: BP 119/72; PULSE 67; RESP 16; TEMP 37.1; O2SAT 97; BMI 24.0
--- NOTE | 2025-02-03 17:25 | ED_ITS ---
HPI - General Adult General Chief complaint: Post Op Complication Stated complaint: Bump on R side of stomach Time Seen by Provider: 02/03/25 17:17 Source: patient Mode of arrival: ambulatory Limitations: no limitations History of Present Illness HPI narrative: 54-year-old female coming in today complaining of a lump on the abdominal wall. Patient had a hiatal hernia repair about 2 weeks ago, done laparoscopically. She states that about 1 week ago she noticed that over her right lateral incision there was a bump that was about the size of a golf ball that she felt momentarily when she sneezed. This has gone away and has not returned however she feels a smaller bump there are now with discomfort. There is no nausea or vomiting. No fevers or chills. Patient does get bloated since the surgery, but is passing gas and is having regular bowel movements. She is taking a stool softener. Patient has oxycodone at home which she tries not to take because it does not make her feel good. She did see her surgeon yesterday who suggested giving the area 2 months to heal. However, she is concerned that she has developed an abdominal wall hernia. Related Data Home Medications ?Medication ?Instructions ?Recorded ?Confirmed omeprazole 20 mg capsule,delayed 20 mg PO QDAY 2 02/03/25 release albuterol sulfate 90 mcg/actuation 1 - 2 inh inhalatio n Q4H PRN 08/06/24 02/03/25 aerosol inhaler fluoxetine 20 mg capsule 60 mg PO DAILY 08/09/2401/24 mometasone-formoterol HFA 50 mcg-5 2 inh inhalation BI D 08/09/24 08/09/24 mcg/actuation aerosol inhaler (Dulera) Allergies Allergy/AdvReac Type Severity Reaction Status Date / Time diphenhydramine (From Allergy Intermediate Rash Verified 08/09/24 08:55 Benadryl) bupropion (From Wellbutrin) Allergy itch Verified 08/09/24 08:55 dermabond Allergy Uncoded 08/09/24 08:55 Review of Systems Status of ROS: Reports: 6 or more systems reviewed and unremarkable except as noted in History and below [facility] Medical History Persistent depressive disorder ?F34.1 - Dysthymic disorder (ICD-10) Morbid obesity with BMI of 40.0-44.9, adult ?E66.01 - Morbid (severe) obesity due to excess calories (ICD-10) ?Z68.41 - Body mass index [BMI] 40.0-44.9, adult (ICD-10) Eosinophilic esophagitis ?K20.0 - Eosinophilic esophagitis (ICD-10) MENG (generalized anxiety disorder) ?F41.1 - Generalized anxiety disorder (ICD-10) Insomnia ?G47.00 - Insomnia, unspecified (ICD-10) Oligomenorrhea ?N91.5 - Oligomenorrhea, unspecified (ICD-10) Vitamin D deficiency ?E55.9 - Vitamin D deficiency, unspecified (ICD-10) PTSD (post-traumatic stress disorder) ?F43.10 - Post-traumatic stress disorder, unspecified (ICD-10) Dysthymic disorder ?F34.1 - Dysthymic disorder (ICD-10) Rosacea ?L71.9 - Rosacea, unspecified (ICD-10) Unspecified asthma ?J45.909 - Unspecified asthma, uncomplicated (ICD-10) Left wrist injury ?S69.92XA - Unspecified injury of left wrist, hand and finger(s), initial encounter (ICD-10) Shingles ?B02.9 - Zoster without complications (ICD-10) Surgical History H/O nasal septoplasty ?Z98.890 - Other specified postprocedural states (ICD-10) H/O liposuction ?Z98.890 - Other specified postprocedural states (ICD-10) History of tonsillectomy ?Z90.89 - Acquired absence of other organs (ICD-10) H/O: hysterectomy ?Z90.710 - Acquired absence of both cervix and uterus (ICD-10) Social History Smoking Status: Never smoker How often do you have a drink containing alcohol: monthly or less AUDIT-C Alcohol total score: 1 Non-prescribed substance use: denies use Caffeine: Yes (very ocaisional) Are you using contraception or practicing any form of control: No Exam Narrative: Exam Narrative: Well-nourished well-developed patient in no acute distress. Alert and oriented. Answers questions appropriately. Mood and affect are appropriate. Patient speaks in full sentences without needing to catch her breath. HEENT: Normocephalic atraumatic. Pupils are equally round reactive to light. Extraocular muscles are intact. Conjunctivae are moist without any icterus noted. Moist mucous membranes. Abdomen: Soft and nontender nondistended with normal bowel sounds. No guarding or rebound tenderness. Incisions are healing appropriately. Patient has a small (slightly larger than a pea), firm swelling just underneath her lateral incision. Slightly tender to firm palpation. It cannot be reduced, not mobile. Does not change in size or consistency when she bears down. Skin: Well perfused without any obvious rashes. Const: Vital Signs, click to edit/add: Vital Signs - 24 hr 02/03/25 15:59 Temperature 98.8 F Pulse Rate [Right Pulse Oximeter] 67 Respiratory Rate 16 Blood Pressure [Ri ght Upper Arm] 119/72 Pulse Oximetry 97 Oxygen Delivery Me thod Room Air Course Vital Signs Vital signs: Initial Vital Signs Temperature 98.8 F 02/03/25 15:59 Temperature Source Temporal Artery Scan 02/03/25 15:59 Pulse Rate 67 02/03/25 15:59 Pulse Rhythm Regular 02/03/25 15:59 Respiratory Rate 16 02/03/25 15:59 Blood Pressure 119/72 02/03/25 15:59 Blood Pressure Mean 87 02/03/25 15:59 Blood Pressure Position Sitting 02/03/25 15:59 Pulse Oximetry 97 02/03/25 15:59 Oxygen Delivery Method Room Air 02/03/25 15:59 Vital Signs Temperature 98.8 F 02/03/25 15:59 Pulse Rate 67 02/03/25 15:59 Respiratory Rate 16 02/03/25 15:59 Blood Pressure 119/72 02/03/25 15:59 Pulse Oximetry 97 02/03/25 15:59 Oxygen Delivery Method Room Air 02/03/25 15:59 Temperature 98.8 F 02/03/25 15:59 Pulse Rate 67 02/03/25 15:59 Respiratory Rate 16 02/03/25 15:59 Blood Pressure 119/72 02/03/25 15:59 Pulse Oximetry 97 02/03/25 15:59 Oxygen Delivery Method Room Air 02/03/25 15:59 Medical Decision Making MDM Narrative Medical decision making narrative: 54-year-old female with slight swelling underneath 1 of her incisions. This is not appear to be hernia on examination. We discussed the possibility of scar tissue and inflammation. All things that are expected. We discussed doing imaging today but given that she is only 2 weeks postop and she does not have bulge that is growing I do not think this is necessary at this time. I do recommend she follow her surgeon's recommendation of monitoring this until it fully heals and at the bulge remains than proceeding with imaging. I am going to send her home today with Tylenol with codeine since the oxycodone does not make her feel well. We discussed reasons to return for re-evaluation. Patient had no other questions. Discharge Plan Discharge Clinical Impression: Swelling Patient Disposition: Home, Self-Care Condition: Stable Additional Instructions: Recommend you follow your surgeon's recommendations of given this 2 months to heal and following up for imaging if it does not. If the area becomes red, develops purulent drainage or you develop a fever-you should return for re-evaluation. Fifteen tablets of Tylenol No. 3 sent to [facility]. Prescriptions: No Action omeprazole 20 mg capsule,delayed release(DR/EC) 20 mg PO QDAY albuterol sulfate 90 mcg/actuation HFA aerosol inhaler 1 - 2 inh inhalation Q4H PRN Dulera 50-5 mcg/actuation HFA aerosol inhaler 2 inh inhalation BID fluoxetine 20 mg capsule 60 mg PO DAILY Follow Up/Referrals: Jason Farrar MD [Primary Care Provider, Family Practice] Stand Alone Forms: [employer] Info Instructions
--- OUTSIDE RECORDS SUMMARY | 2025-02-03 17:40 | XMS_ITS | Clinical Summary ---
Author Organization [facility] Address [address] [place] [id number] Care Team Providers Care Lawn Specialist Name Role Phone Clinic, [facility] Primary Care Provider Allergies No known active allergies Social History Tobacco UseTypesPacks/DayYears UsedDateSmoking Tobacco: Never AssessedAdolescent EducationAnswerDate RecordedGetting School Help NeededNot on file11/23/2022 CommentsUnknownSex and Gender InformationValueDate RecordedSex Assigned at BirthNot on fileLegal IcjIytqui82/04/2012 3:10 AM CSTGender IdentityNot on fileSexual OrientationNot on file Last Filed Vital Signs Vital SignReadingTime TakenCommentsBlood Gulyebha895/7102 1:13 AM MANAGER SOCIAL SERVICES Uwifx4895 1:13 AM FLCEmcrstblzmj45.7 ??C (98 ??F)03/31/2011 12:21 AM MANAGER SOCIAL SERVICES Respiratory Ktfc6926 1:13 AM CSTOxygen Ofuoghadll87%03/31/2011 1:13 AM CSTInhaled Oxygen Concentration--Kpgfiq143.1 kg (225 lb)03/31/2011 12:21 AM MANAGER SOCIAL SERVICES Dqfvme787.8 cm (5' 10)03/31/2011 12:21 AM CSTBody Mass Index32.28003/31/2011 12:21 AM MANAGER SOCIAL SERVICES Plan of Treatment Health MaintenanceDue DateLast DoneCommentsADVANCE CARE TKHOSCIX58/28/1973ANNUAL REVIEW OF HM JXSVGH16 1972CT MTTQBXCBRYMX88/28/1973DIABETES SCREENING 1972FIT1972FLEX SIG1972MAMMO NEPZSIUPQ84/28/1973COLONOSCOPY 1982HIV HLBLZABDE09/28/1988HEPATITIS C BQTIQIGIN42/28/1991HEPATITIS B VACCINE (1 of 3 - 19+ 3-dose series)08/22/1991PAP08/21/19931152UNAEM13/28/2013YEARLY PREVENTIVE VISIT/1PNEUMOCOCCAL VACCINE 50+ YEARS (1 of 1 - PCV)2022ZOSTER VACCINE (1 of 2)3PHQ-2 (once per calendar year) 5COVID-19 VACCINE (3 - season)/, 01/16/2021 INFLUENZA VACCINE (#1), 11/20/2010, 01/23/2007COLORECTAL CANCER XVRRVJZZH82/28/2026sDNA (Cologuard)603DTAP/TDAP/TD VACCINE (5 - Td or Tdap)/, 05/26/2012, 05/25/2010, Additional history existsHPV VACCINE (No Doses Required)CompletedMENINGITIS VACCINEAged Out No longer eligible based on patient's age to complete this topic Insurance * Guarantor: [id number] TypeRelation to PatientDate of BirthPhone Billing AddressWorker's ZelmpgefuyrlXvkbqpug73/28/[id number] [place] [phone] Care Teams Team MemberRelationshipSpecialtyStart [address] [address] PCP - General03/31/11
--- OUTSIDE RECORDS SUMMARY | 2025-02-03 17:40 | XMS_ITS | Clinical Summary ---
Author Organization [facility] Address [address] [place] [address] Care Team Providers Care Stopper Maker Name Role Phone Jason Farrar MD Primary Care Provider [phone] Zaira Charlton Unavailable [phone] Unavailable [phone] Jordon Kennedy MD Unavailable Kiki Baer RN Unavailable Carolina Guevara RD Unavailable Allergies Active AllergyReactionsCriticalityNoted DateCommentsCats (Fur, Dander, Saliva) Runny Nose01/18/20110201NvshxdffyvmqxwgSdryNyci16/02/2025Levonorgestrel-Ethinyl Estrad*Qupejns2412/30/2019Bupropion FeeGeojldy60/16/2017 Medications MedicationSigDispense QuantityRefillsLast FilledStart DateEnd DateStatus mometasone-formoterol (Dulera) 100-5 mcg/actuation inhaler Indications:Moderate persistent asthma without complication (HC)Inhale 2 Puffs by mouth two times daily. 3 Each ctive albuterol HFA (PRO-AIR; VENTOLIN; PROVENTIL) 90 mcg/actuation inhaler Indications:Moderate persistent asthma without complication (HC)Inhale 1-2 Puffs by mouth every 4 hours if needed for Shortness of Breath 1st choice or Wheezing 1st choice. 1 Each ctive calcium citrate-vitamin D3, 315 mg-250 units, (CITRACAL WITH VITAMIN D) 315 mg- 6.25 mcg (250 unit) tab tablet Take 2 Tablets by mouth two times daily with meals. Total daily dose of Calcium should be 1200mg - 2252wt284Active pedi multivit no.140-iron fum (Child Chewable Vitamn Complete) 18 mg iron chew Chew 1 Tablet by mouth once daily.Active SUMAtriptan (IMITREX) 50 mg tablet Indications:Chronic daily headacheTAKE 1 TABLET BY MOUTH NEEDED FOR HEADACHE. CAN REPEAT 1X PER DAY. MINIMUM 2 HOURS APART PER DOSE. MAX DOSE 2 TABLETS PER 24 HOURS. 10 Tablet 4Active metroNIDAZOLE (METROCREAM) 0.75 % cream Indications:Perioral dermatitisAPPLY CREAM TOPICALLY TO AFFECTED AREA TWICE DAILY 45 g 5Active azelaic acid 15 % gel Indications:RosaceaAPPLY A THIN LAYER TOPICALLY TO AFFECTED AREA(S) TWICE DAILY. 50 g 5Active omeprazole 40 mg Delayed-Release capsule Indications:Gastroesophageal reflux disease, unspecified whether esophagitis presentTake 1 Capsule (40 mg) by mouth once daily. 90 Capsule 5Active sucralfate 1 gram tablet Take 1 g by mouth four times daily before meals and at bedtime.5Active ferrous sulfate 325 mg (65 mg iron) tablet Take 1 Tablet (325 mg) by mouth once daily with a meal.5Active ondansetron [address] 1 Tablet (4 mg) on the tongue every 8 hours if needed for Nausea/Vomiting. 5Active cholecalciferol 5,000 unit capsule Take 1 Capsule (5,000 units) by mouth once daily. 40 units = 1 mcg (5000 units = 125 mcg)5Active FLUoxetine (PROZAC) 20 mg capsule Indications:DysthymiaTAKE 3 CAPSULES BY MOUTH ONCE DAILY 270 Capsule 5Active Active Problems Patient Care Coordination No te Formatting of this note migh t be different from the original. SEE DOC FLOWSHEET-PIPELINE FOR NEW BARIATRIC COORDINATION NOTE. KS, RN ProblemNoted DateDiagnosed DateAbsence of both cervix and uterus, acquired 06/21/2024Obesity, Class II, BMI 35-39.908/4Persistent depressive disorder 09/15/2023Morbid obesity with BMI of 40.0-44.9, adult08/19/2023Eosinophilic kmvkksgholm45/10/2018 Overview (06/03/2017): EGD 05/2017 EoE Generalized anxiety otyiokxu32/19/2014 Overview (12/16/2013): Oct 2013: sertraline (Zoloft) increased to 50, Patient didn't tolerate so back to 25mg. Nov 2013: added buspirone. Aoshkflxsbnvyj97/15/6405Xfwnxuem25/15/2014Tendonitis of foot06/20/2012 Overview (06/20/2012): Left dorsal foot; past month Vitamin D lnepfwooap33/18/2012Posttraumatic stress pxjimnbc39/14/2011Unspecified asthma(493.90)01/23/20079687Kfwvodn68/30/2007llergic rhinitis, cause unspecified 01/23/2007Dysthymic disorder Resolved Problems ProblemNoted DateDiagnosed DateResolved DateBorderline personality disorder Major depressive disorder, recurrent episode, unspecified Encounters DateTypeDepartmentCare KxjzVppttecrixw33/11/2025 4:30 PM CSTOffice Visit [facility] [address] [place] [address] Jason Farrar MD Preoperative Exam (Hernia repair [facility] [address] [place] 01/18/25)01/03/2025 Ptmkdo0211/30/2024 10:05 AM CDT - 11/30/2024 11:59 PM CDTHospital Encounter [facility] [address] [place] [address] Tyron Macedo MD Problems with swallowing; Hiatal oqiyuv2311/30/2024Travelfrom Last 3 Months Immunizations ImmunizationAdministration DatesNext DueCOVID-19 vaccine (Pfizer-BioNTDomain Media 30mcg/0.3mL) MD PAULV104/11/2020,01/16/2021Influetrace IIV3 (Age 6-35 mos) 11/20/2010Inflberry, IIV3 (Age >=3 years)11/22/2011,01/23/2007MMR08/24/1996, 03/13/1994Td (Age >=7 Years)02/24/2001,11/26/1994Tdap07/07/2020,05/26/2012, 05/25/2010Zoster (Shingrix-RZV, recombinant)03/27/2024,12/14/2023 Family History Medical HistoryRelationNameCommentsCancerFatherprostateCancer-prostateFather Heart attackFatherHypertensionFatherCancer-breastMaternal AuntCancer-breast Motherage 65Heart attackMotherHypertensionMotherCancer-breastOthermaternal cousinAsthmaSonCancer-ovarianNo Family HistoryRelationNameStatusCommentsFather Maternal AuntMotherOtherSon Social History Tobacco UseTypesPacks/DayYears UsedDateSmoking Tobacco: NeverPassive Smoke Exposure: CurrentSmokeless Tobacco: Never Tobacco Cessation:Counseling Given: Yes Comments: & mother smoke outside Alcohol UseStandard Drinks/WeekCommentsNo0 (1 standard drink = 0.6 oz pure alcohol)PHQ-2AnswerDate RecordedPHQ-2 TOTAL YXHBK954Social Connections AnswerDate RecordedDo you often feel lonely or isolated from those around you?0 01/03/2025lcohol UseAnswerDate RecordedHow often do you have a drink containing alcohol?verage Number of DrinksNot on file01/04/2025Frequency of Binge DrinkingNot on file01/04/2025Financial Resource StrainAnswerDate Recorded Difficulty of Paying Living Bmoonpbf600/10/2025Difficulty of Paying Living ExpensesNot on file01/03/2025Food InsecurityAnswerDate RecordedDo you worry your food will run out before you are able to buy more?Transportation NeedsAnswerDate RecordedDoes lack of transportation keep you from medical appointments?Does lack of transportation keep you from work, meetings or getting things that you need?Housing StabilityAnswerDate Recorded What is your housing situation today?UtilitiesAnswerDate RecordedDo you have trouble paying for utilities (for example, heat, electricity, water, phone)?CommentsNoSex and Gender InformationValueDate Recorded Sex Assigned at BirthNot on fileLegal SgpGynesp17/14/2013 5:26 AM CSTGender IdentityNot on fileSexual OrientationNot on file Obstetrics History GravidaParaTermPretermABIABSABEctopicMultipleLivingLive Odbydb42RjoxXoqvixoOX Total LaborLabor/2nd/8koTjowsfVwqEyqkJgtuBKFOpwC7J9TbpvFxrhLpwhbpqCzgcgiy Last Filed Vital Signs Vital SignReadingTime TakenCommentsBlood Qcdccqaz621/6601/04/2025 4:41 PM STEEL WHEEL ENGRAVER Gnjdo943801/04/2025 4:41 PM RTBPhshretmwvu39.2 ??C (99 ??F)04/11/2022 10:18 AM STEEL WHEEL ENGRAVER Respiratory Ladc4985 8:08 AM CDTOxygen Ggtsvwvvta555%01/04/2025 4:41 PM CSTInhaled Oxygen Concentration--Nxqvql32.9 kg (158 lb 9.6 oz)01/04/2025 4:41 PM BRMCzmnce408.5 cm (5' 8.7)04/06/2024 4:03 PM CSTBody Mass Index23.6302 4:03 PM STEEL WHEEL ENGRAVER Plan of Treatment Health MaintenanceDue DateLast DoneCommentsHepatitis B series for 19+ (1 of 3 - 19+ 3-dose series)08/22/1991Pneumococcal series for age 50+ (1 of 2 - PCV) 08/22/1991RSV vaccine for adults or (1 - Risk 50-74 years 1-dose series)2022OVID-19 vaccine series (3 - season)2024 02/08/2021, 01/16/2021Influenza Vaccine (#1)5011/22/2011, 11/20/2010, 01/23/2007BMI (ht and wt on same day) for age 18+602/12/2024, 02/02/2024, 12/01/2023, Additional history existsFecal testing sDNA-FIT (Cologuard) for age 45-75004/23/Mammogram for age 45-75005/10/2025 05/10/2024, 10/15/2022, 03/12/2021, Additional history existsDepression screening for age 12+/09/2024, 07/01/2024, 10/01/2023, Additional history existsLipids for age 45-75, 01/16/2021, 09/29/2019, Additional history existsTetanus youidjv54/14//, 05/26/2012, 05/25/2010, Additional history existsHepatitis C screening for age 18-79 Fcarviwxv85/12/2022HIV for age 15-32Jnurbxjez26/22/2023Zoster (shingles) series for age 50+Lvbbjqfny37/01/2025, 12/14/2023 Procedures Procedure NamePriorityDate/TimeAssociated DiagnosisCommentsXR ESOPHAGUSRoutine 11/30/2024 10:46 AM CDT Problems with swallowing Hiatal hernia XR MAMMO BILAT WLUDRAOEWYfsjpex21/17/2025 11:07 AM CDT Visit for screening mammogram ANTI HIV 1/6Dzcixxj54/22/2023 4:39 PM STEEL WHEEL ENGRAVER Screening for HIV (human immunodeficiency virus) LIPID HISOVJhqwkqj68/22/2023 4:39 PM STEEL WHEEL ENGRAVER Screening, lipid SDNA-FIT EXTERNAL (COLOGUARD)Aqcwyxu1804/23/2022 5:30 PM STEEL WHEEL ENGRAVER Screen for colon cancer ANTI ZWLHhdoajs10/12/2022 4:41 PM CDT Need for hepatitis C screening test from Last 3 Months or Most Recently Relevant to Health Maintenance Results * XR ESOPHAGUS (11/30/2024 10:46 AM CDT)Anatomical RegionLateralityModality EsophagusComputed Radiography, OtherSpecimen (Source)Anatomical Location / LateralityCollection Method / VolumeCollection TimeReceived Time11/30/2024 10:55 AM CDT Narrative 11/30/2024 10:55 AM CDT For Patients: As a result of the s Act, medical imaging exams and procedure reports are released immediately into your electronic medical record. You may view this report before your referring provider. If you have questions, please contact your health care provider. INDICATION: Problems with swallowing. Hiatus hernia. TECHNIQUE: Esophagram. Fluoroscopy time 1 minute 30 seconds. Multiple cine images. FINDINGS: Normal emptying of the oral cavity and triggering of the autonomic swallowing response. No laryngeal penetration or tracheal aspiration. Cervical esophagus normal. Thoracic esophagus is normal in diameter and has a normal mucosal pattern throughout. Normal coordinated stripping action. No spasticity. Small sliding hiatus hernia with spontaneous gastroesophageal reflux. No evidence of esophagitis, ulceration, stricture or neoplasm. Gastric bypass surgery. No obvious ulcer identified within the gastric pouch. Impression: Small sliding hiatus hernia with spontaneous gastroesophageal reflux. No other anatomical sequelae related to reflux. Dictated by Mary Biggs MD @ 11/30/2024 10:55:21 AM (Electronically Signed) Procedure Note Jcarlos Biggs MD - 11/30/2024 For Patients: As a result of the s Act, medical imagingexams and procedure reports are released immediately into your electronicmedical record. You may view this report before your referring provider.If you have questions, please contact your health care provider. INDICATION: Problems with swallowing. Hiatus hernia. TECHNIQUE: Esophagram. Fluoroscopy time 1 minute 30 seconds. Multiple cine images. FINDINGS: Normal emptying of the oral cavity and triggering of the autonomicswallowing response. No laryngeal penetration or tracheal aspiration.Cervical esophagus normal. Thoracic esophagus is normal in diameter andhas a normal mucosal pattern throughout. Normal coordinated strippingaction. No spasticity. Small sliding hiatus hernia with spontaneous gastroesophageal reflux. Noevidence of esophagitis, ulceration, stricture or neoplasm. Gastric bypasssurgery. No obvious ulcer identified within the gastric pouch. Impression: Small sliding hiatus hernia with spontaneous gastroesophageal reflux. Noother anatomical sequelae related to reflux. Dictated by Mary Biggs MD @ 11/30/2024 10:55:21 AM (Electronically Signed) Authorizing ProviderResult TypeResult StatusTyron Macedo MDFLUOROSCOPYFinal Result * XR MAMMO BILAT SCREENING (05/10/2024 11:07 AM CDT)Anatomical RegionLaterality ModalityBREASTS, Breast Left, Breast RightBilateralMammographySpecimen (Source)Anatomical Location / LateralityCollection Method / VolumeCollection TimeReceived Time Impressions 05/10/2024 2:04 PM CDT There is no radiographic evidence for malignancy. Recommend annual mammograms. MAMMOGRAM ASSESSMENT: ??ACR 1 Negative PATIENTS: You will also receive a letter with your examination results in an easy to read format. ??If you have questions about your results, please contact your referring provider. Narrative 05/10/2024 2:04 PM CDT For Patients: As a result of the Century Cures Act, medical imaging exams and procedure reports are released immediately into your electronic medical record. You may view this report before your referring provider. If you have questions, please contact your health care provider. XR MAMMO BILAT SCREENING [[id number]] CLINICAL HISTORY: ??This is an asymptomatic 53 y.o. patient. INDICATION FOR EXAM: Mammogram Screening. TECHNIQUE: CC and MLO views were obtained. ??This study was evaluated with the assistance of Computer-Aided Detection. COMPARISON FILM: Yes 10/15/22 [facility] 03/12/21 [employer] FINDINGS: ??There are scattered areas of fibroglandular density. There are no dominant masses, suspicious micro calcifications or areas of architectural distortion. Authorizing ProviderResult TypeResult StatusJason Farrar MDMAMMOFinal Result * ANTI HIV 1/2 [32031.0] (02/14/2023 4:39 PM STEEL WHEEL ENGRAVER)ComponentValueRef RangeTest MethodAnalysis TimePerformed AtPathologist SignatureHIV-1/HIV-2 SCREEN Bft-MntzveaxHio-Iysvpgym58/22/2023 9:12 PM CSTALLASTRIA [facility]-CENTRAL LABORATORYComment:HIV-1 p24 and HIV-1/HIV-2 Ab Not Detected.Specimen (Source) Anatomical Location / LateralityCollection Method / VolumeCollection Time Received TimeBloodBLOOD SPECIMEN / UnknownVenipuncture / Lytcvqy8702/14/2023 4:39 PM CST02/14/2023 4:40 PM STEEL WHEEL ENGRAVER Narrative Authorizing ProviderResult TypeResult StatusJason Farrar MDSEND OUTSFinal ResultPerforming OrganizationAddressCity/State/ZIP CodePhone Number [facility] [address] [place] [address], * LIPID PANEL (02/14/2023 4:39 PM STEEL WHEEL ENGRAVER)ComponentValueRef RangeTest MethodAnalysis TimePerformed AtPathologist SignatureCHOLESTEROL,[id number] - 199 mg/dL 02/14/2023 8:20 PM [facility]TRAL LABORATORYComment: Cholesterol, Total Reference Ranges Desirable <200 mg/dL Borderline 200-239 mg/dL High >=240 mg/dL ICKDVTOXRTVYS91<150 mg/dL02/14/2023 8:20 PM [facility]AL LABORATORYHDL VILBOVVAICI55>40 mg/dL02/14/2023 8:20 PM [facility]AL LABORATORYNON-HDL WOLYACUUMAD837<145 mg/dl02/14/2023 8:20 PM [facility]AL LABORATORYCHOL/HDL RATIO3.67<4.50104/17/2022 8:20 PM [facility]AL LABORATORYLDL OPSIYDQDUEX56<=130 mg/dL02/14/2023 8:20 PM [facility]AL LABORATORYVLDL BTYNJAFDADG31<=30 mg/dL02/14/2023 8:20 PM [facility]AL LABORATORYPROVIDER ORDERED VXRTEGAJPPCB00/22/2023 8:20 PM [facility]ENTRAL LABORATORYSpecimen (Source)Anatomical Location / Laterality Collection Method / VolumeCollection TimeReceived TimeBloodBLOOD SPECIMEN / UnknownVenipuncture / Nrbsrmz3402/14/2023 4:39 PM CST02/14/2023 4:40 PM STEEL WHEEL ENGRAVER Narrative Authorizing ProviderResult TypeResult StatusJason Farrar MDCHEMISTRYFinal ResultPerforming OrganizationAddressCity/State/ZIP CodePhone Number [facility] [address] [place] [address], [place] * SDNA-FIT EXTERNAL (COLOGUARD) (04/23/2022 5:30 PM STEEL WHEEL ENGRAVER)ComponentValueRef Range Test MethodAnalysis TimePerformed AtPathologist SignatureNONINV COLON CA DNA+OCC BLD SCRN STL-PDQFkpisboyLxjxdfow66/07/2023 8:53 AM [employer] (CLIA #:[id number])Comment: NEGATIVE TEST RESULT. A negative Cologuard result indicates a low likelihood that a colorectal cancer (CRC) or advanced adenoma (adenomatous polyps with more advanced pre-malignant features) ??is present. The chance that a person with a negative Cologuard test has a colorectal cancer is less than 1in 1500 (negative predictive value >99.9%) or has an advanced adenoma is less than 5.3% (negative predictive value 94.7%). These data are based on a prospective cross-sectional study of 10,000individuals at average risk for colorectal cancer who were screened with both Cologuard and colonoscopy. (Phil Andre et al, N Engl J Med 2014;370(14):7500-2597) The normal value (reference range) for this assay is negative. COLOGUARD RE-SCREENING RECOMMENDATION: Periodic colorectal cancer screening is an important part ofpreventive healthcare for asymptomatic individuals at average risk for colorectal cancer. ??Following a negative Cologuard result, the [place] [employer] Society and U.S. Multi-Society Task Force screening guidelines recommend a Cologuard re-screening interval of 3 years. References: [place] [employer] Guideline for Colorectal Cancer Screening: https://www.cancer.or g/cancer/qzdcj-vdtiey-jlaugr/jnsrhaveg-zdiwsbukz-higyjeo/acs-recommendations.htm [place]; Dirk TY, Roxy CR, Gennaro HernandezK, Colorectal Cancer Screening: Recommendations for Physicians and Patients from the U.S. Multi-Society Task Force on Colorectal Cancer Screening , Am J Gastroenterology 2017; 112:7984-1470. TEST DESCRIPTION: Composite algorithmic analysis of stool DNA-biomarkers with hemoglobin immunoassay. ?? Quantitative values of individual biomarkers are not reportable and are not associated with individual biomarker result reference ranges. Cologuard is intended for colorectal cancer screening ofadults of either sex, 45 years or older, [...] (Phil Marrufo al, N Engl J Med 2014;370(14):7114-3524.) Cologuard may produce a false negative or false positive result (no colorectal cancer or precancerous polyp present at colonoscopy follow up). A negative Cologuard test result does not guarantee the absence of CRC or advanced adenoma (pre-cancer). The current Cologuard screening interval is every 3 years. ([place] [employer] Society and U.S. Multi-Society Task Force). Cologuard performance data in a 10,000 patient pivotal study using colonoscopy as the reference method can be accessed at the following location: www.[employer]/results. Additional description of the Cologuard test process, warnings and precautions can be found at www.[employer].com. Specimen (Source)Anatomical Location / LateralityCollection Method / Volume Collection TimeReceived TimeStool specimen (specimen) (Rectum)04/23/2022 5:30 PM CST04/25/2022 2:29 PM STEEL WHEEL ENGRAVER Narrative Authorizing ProviderResult TypeResult StatusKyjeanie Farrar MDURINEFinal ResultPerforming OrganizationAddressCity/State/ZIP CodePhone Number [employer] (CLIA #:[id number]) [place] [address], * ANTI HCV (11/05/2021 4:41 PM CDT)ComponentValueRef RangeTest MethodAnalysis TimePerformed AtPathologist SignatureHEPATITIS C ANTIBODYNon-Reactive Non-Slfxjciq85/13/2022 7:55 PM CDTALNEW ULM [facility] Comment:Antibodies to HCV not detected; does not exclude the possibility of exposure to HCV.Specimen (Source)Anatomical Location / LateralityCollection Method / VolumeCollection TimeReceived TimeBloodBLOOD SPECIMEN / Unknown Venipuncture / Iusmhxp6711/05/2021 4:41 PM CDT11/05/2021 4:41 PM CDT Narrative Authorizing ProviderResult TypeResult StatusKyjeanie Farrar MDSEND OUTSFinal ResultPerforming OrganizationAddressCity/State/ZIP CodePhone Number [facility] [address] [place] [address], from Last 3 Months or Most Recently Relevant to Health Maintenance Insurance Care Teams Team MemberRelationshipSpecialtyStart DateEnd Jason Farr[place] [address] PCP - GeneralFamily Practice05/16/17 Zaira Charlton PA [address] [place] [address] Physician Assistant08/03/[address] [facility] [place] [address] Registered Dietician08/03/23 [place] [address] [place] [address] Surgery - General08/18/23 Kiki Baer RN [address] [place] [address] Registered Nurse08/18/[address] [facility] [address] [place] [address] Registered Dietician10/28/23
--- OUTSIDE RECORDS SUMMARY | 2025-02-03 17:41 | XMS_ITS | Encounter Summary ---
Author Organization [facility] Address [address] [place] [address] Care Team Providers Care Rock Picker Name Role Phone Jason Farrar MD Primary Care Provider [phone] Encounter Details DateTypeDepartmentCare Team (Latest Contact Info)Jvdogvwixwa13/20/2025Travel Social History Tobacco UseTypesPacks/DayYears UsedDateSmoking Tobacco: NeverPassive Smoke Exposure: NeverSmokeless Tobacco: NeverAlcohol UseStandard Drinks/WeekComments Not Currently0 (1 standard drink = 0.6 oz pure alcohol)CommentsUnknown Sex and Gender InformationValueDate RecordedSex Assigned at BirthNot on file Legal YveTlddmu61/29/2025 3:31 PM CDTGender IdentityNot on fileSexual OrientationNot on filedocumented as of this encounter Plan of Treatment Not on file documented as of this encounter Visit Diagnoses Not on filedocumented in this encounter Care Teams Team MemberRelationshipSpecialtyStart DateEnd Date Jason Farrar MD [address] [facility] [address] PCP - GeneralFamily Bcxqzviq50/14/25documented as of this encounter
--- OUTSIDE RECORDS SUMMARY | 2025-02-03 17:41 | XMS_ITS | Encounter Summary ---
Author Organization [facility] Address [address] [place] [address] Care Team Providers Care Technician Automatic Name Role Phone Jason Farrar MD Primary Care Provider [phone] Encounter Details DateTypeDepartmentCare Team (Latest Contact Info)Bxwswxyailf16/25/2025Travel Social History Tobacco UseTypesPacks/DayYears UsedDateSmoking Tobacco: NeverPassive Smoke Exposure: NeverSmokeless Tobacco: NeverAlcohol UseStandard Drinks/WeekComments Not Currently0 (1 standard drink = 0.6 oz pure alcohol)Humiliation, Afraid, Rape, and Kick questionnaireAnswerDate RecordedWithin the last year, have you been afraid of your partner or ex-partner?No01/18/2025Within the last year, have you been humiliated or emotionally abused in other ways by your partner or ex-partner?No01/18/2025Within the last year, have you been kicked, hit, slapped, or otherwise physically hurt by your partner or ex-partner?No01/18/2025Within the last year, have you been raped or forced to have any kind of sexual activity by your partner or ex-partner?No01/18/2025Hunger Vital SignAnswerDate Recorded Within the past 12 months, you worried that [...] were you homeless or living in a custodial (including now)?No01/18/2025HC UtilitiesAnswerDate RecordedIn the past 12 months has the electric, gas, oil, or water [employer] threatened to shut off services in your home?No01/18/2025CommentsNoSex and Gender InformationValueDate RecordedSex Assigned at BirthNot on fileLegal SexFemale 12/22/2024 3:31 PM CDTGender IdentityNot on fileSexual OrientationNot on file documented as of this encounter Plan of Treatment Not on file documented as of this encounter Visit Diagnoses Not on filedocumented in this encounter Care Teams Team MemberRelationshipSpecialtyStart DateEnd Date Jason Farrar MD [address] [place] [address] PCP - GeneralFamily Ybuwowwf18/14/25documented as of this encounter
--- OUTSIDE RECORDS SUMMARY | 2025-02-03 17:41 | XMS_ITS | Clinical Summary ---
Author Organization [facility] Address [address] [place] [id number] Care Team Providers Care [employer] Name Role Phone Jason Farrar MD Primary Care Provider [phone] Allergies Active AllergyReactionsCriticalityNoted DateCommentsBupropion HclItching 03/11/20165167MfoqtivgkxoueofGzoqEbvu07/02/2025Levonorgestrel-Ethinyl EstradRash 12/30/2019 Surgery adhesive - dermabond Medications MedicationSigDispense QuantityRefillsLast FilledStart DateEnd DateStatus azelaic acid (FINACEA) 15 % Top gel twice a day.5Active Calcium Citrate-Vitamin D3 315 mg-6.25 mcg (250 unit) oral Tab Take 2 tablets by mouth twice a day.4Active Cholecalciferol, Vitamin D3, 125 mcg (5,000 unit) oral capsule Take 1 capsule by mouth Daily.5Active ferrous sulfate (FERATAB) 325 mg (65 mg iron) oral tablet Take 1 tablet (325 mg) by mouth Daily.5Active FLUoxetine (PROZAC) 20 mg oral capsule Take 3 capsules (60 mg) by mouth Daily.5Active metroNIDAZOLE (METROCREAM) 0.75 % cream APPLY CREAM TOPICALLY TO AFFECTED AREA TWICE DAILY5Active SUMAtriptan succinate (IMITREX) 50 mg oral tablet TAKE 1 TABLET BY MOUTH NEEDED FOR HEADACHE. CAN REPEAT 1X PER DAY. MINIMUM 2 HOURS APART PER DOSE. MAX DOSE 2 TABLETS PER 24 HOURS.4Active multivit-min/iron/folic acid/K (BARIATRIC MULTIVITAMINS ORAL) Take by mouth.Active albuterol HFA (PROVENTIL;VENTOLIN HFA) 90 mcg/actuation Inhl inhaler Inhale 2 puffs every 4 (four) hours as needed.Active mometasone/formoterol (DULERA INHL) Inhale 2 puffs once daily.Active omeprazole (PRILOSEC) 20 mg oral delayed release capsule Take 1 capsule (20 mg) by mouth twice a day. Open and sprinkle over water to aid in stomach healing. 60 capsule 01/19/2025 10:00 AM [facility]5Active oxyCODONE, immediate release, (ROXICODONE) 5 mg oral tablet Take 1 tablet (5 mg) by mouth every 6 (six) hours as needed. 20 tablet 01/19/2025 10:00 AM 5Active hyoscyamine sulfate (LEVSIN) 0.125 mg sublingual sublingual tablet Take 1 tablet (0.125 mg) under the tongue every 4 (four) hours as needed (esophageal spasm). 15 tablet 01/19/2025 10:00 AM 5Active methocarbamoL (ROBAXIN) 500 mg oral tablet Take 1 tablet (500 mg) by mouth every 6 (six) hours as needed (muscle spasms). Crush tablet. 20 tablet 01/19/2025 10:00 AM 5Active ondansetron (ZOFRAN) 4 mg oral ODT Dissolve 1 tablet (4 mg) in mouth every 8 (eight) hours as needed for nausea. 30 tablet 01/19/2025 10:00 AM 5Active hyoscyamine sulfate (HYOMAX-FT) 0.125 mg oral TbDL TAKE 1 TABLET BY MOUTH EVERY 4 HOURS NEEDED FOR EPIGASTRIC OR ESOPHAGEAL PAIN.Discontinued omeprazole (PRILOSEC) 40 mg oral delayed release capsule Take 1 capsule (40 mg) by mouth Daily.Discontinued ondansetron (ZOFRAN) 4 mg oral ODT Take 1 tablet (4 mg) under the tongue every 8 (eight) hours as needed.08/31/2024 01/19/2025Discontinued Active Problems ProblemNoted DateDiagnosed DateConcussion without loss of consciousness 01/18/2025Herpes drpnlx2601/18/2025Left wrist mhgqvo7101/18/2025Postconcussion dmmgfylc42/25/2025Pruritic rash01/18/2025H/O hiatal mnlyba8301/18/2025bsence of both cervix and uterus, yvgxpnhh76/28/2025Persistent depressive disorder 09/15/2023Obesity, Class II, BMI 35-39.9008/19/2023Eosinophilic esophagitis 06/03/2017 Overview (01/18/2025): EGD 05/2017 EoE Vxnkiayn03/15/6261Bvvmlqvkflfqsq56/15/2014Tendonitis of foot06/20/2012 Overview (01/18/2025): Left dorsal foot; past month Vitamin D bcliisqymy53/18/2012Posttraumatic stress btrchmji13/14/2011 Overview (01/18/2025): Oct 2013: sertraline (Zoloft) increased to 50, Patient didn't tolerate so back to 25mg. Nov 2013: added buspirone. Sbixvh4301/23/2007llergic uuctnxij11/30/3345Rvxxlgp50/30/2007 Encounters DateTypeDepartmentCare YxflZsncrkpeupu47/25/2025 11:35 AM [facility] - 01/18/2025 3:10 PM [facility] [address] [place] [address] [place] [address] Tyron Macedo MD ROBOTIC XI ASSISTED LAPAROSCOPIC HIATAL HERNIA REPAIR, INTRAOPERATIVE NSXBMGFXHOWEZUYBNKTIUZHOKL41/25/2025 10:10 AM [facility] - 01/19/2025 11:20 AM [facility] Hospital Encounter A[address] [place] [address] [place] [address] Tyron Macedo MD H/O hiatal hernia Discharge Disposition: Returning Home/Self Care01/18/20256197Vandns97/20/2025Travel from Last 3 Months Immunizations ImmunizationAdministration DatesNext DueInfluenza split virus (Fluzone Quadrivalent PF)11/22/2011,11/20/2010Influenza split virus cadlqmiuu89/30/2007 MMR08/24/1996,03/13/1994Pfizer 12+ Yrs Monovalent COVID Vaccine (purple cap) 02/08/2021,01/16/2021Td adult absorbed PF (2 Lf)02/24/2001,11/26/1994Tdap 07/07/2020,05/26/2012,05/25/2010Zoster Smwrnihucqw46/01/2025,12/14/2023 Social History Tobacco UseTypesPacks/DayYears UsedDateSmoking Tobacco: NeverPassive [...] were you homeless or living in a longterm (including now)?No01/18/2025HC UtilitiesAnswerDate RecordedIn the past 12 months has the [employer], gas, oil, or water [employer] threatened to shut off services in your home?No01/18/2025CommentsNoSex and Gender InformationValueDate RecordedSex Assigned at BirthNot on fileLegal SexFemale 12/22/2024 3:31 PM CDTGender IdentityNot on fileSexual OrientationNot on file Last Filed Vital Signs Vital SignReadingTime TakenCommentsBlood Vdneivgx284/6901/19/2025 11:00 AM [employer] Svkks590901/19/2025 11:00 AM KPAUokqcfxeogh04.8 ??C (98.3 ??F)01/19/2025 11:00 AM CSTRespiratory Ttpw4155 8:14 AM CSTOxygen Biapumtbnc11%01/19/2025 11:00 AM CSTInhaled Oxygen Concentration--Inioxl28.3 kg (155 lb)01/13/2025 1:11 PM [employer] Npmtzt667.7 cm (5' 8)01/13/2025 1:11 PM CSTBody Mass Index23.5701/13/2025 1:11 PM [employer] Plan of Treatment Health MaintenanceDue DateLast NcxvVdpolabxLstyvkycjva78/28/1973Lipid Screening 1972Pap Smear1972Anxiety Follow-Up (MENG-7)1973Depression Follow-Up (PHQ-9)1973Pneumococcal 50+ Years (1 of 2 - PCV)08/22/1991RSV Vaccines (1 - Risk 50-74 years 1-dose series)3COVID-19 Vaccine ( - season)5104/11/2020, 01/16/2021Influenza Vaccine (#1)2024 11/22/2011, 11/20/2010, 01/23/2007Yearly Review of HCD61 Mammogram Iogsayesp43/17/934057/, 05/10/2024, 10/15/2022, Additional history existsAdult Tetanus Cwhxxsz79/, 05/26/2012, 05/25/2010, Additional history existsHepatitis C OropycbuhDyqzpifur21/12/2022Zoster Vaccine Qnhqqwbry65/01/2025, 12/14/2023Meningococcal B VaccineAged OutNo longer eligible based on patient's age to complete this topic Procedures Procedure NamePriorityDate/TimeAssociated DiagnosisCommentsELECTROLYTESRoutine 01/19/2025 6:54 AM [employer] WBC (WHITE BLOOD COUNT)Hxhobju4901/19/2025 6:54 AM [employer] HCSJHBMAECDfvtjli36/26/2025 6:54 AM [employer] PLATELET WMFPGIsfbyer21/26/2025 6:54 AM [employer] ILKGXOQXVKPeveivh13/25/2025 11:45 AM [employer] ESOPHAGOGASTRODUODENOSCOPY TRANSORAL ETJJDCEMYI06/25/2025 11:35 AM [employer] Diaphragmatic hernia without obstruction or gangrene LAPS RPR PARAESPHGL HRNA INCL FUNDPLSTY W/O MESH01/18/2025 11:35 AM [employer] Diaphragmatic hernia without obstruction or gangrene from Last 3 Months Results * Electrolytes (01/19/2025 6:54 AM [employer])ComponentValueRef RangeTest Method Analysis TimePerformed AtPathologist HkrjyfeuyPexttf232526 - 145 mmol/L 01/19/2025 7:30 AM [facility] LABORATORYPotassium3.43.4 - 5.1 mmol/L103/21/2024 7:30 AM [facility] WJAXSYEDCRXytteios13935 - 108 mmol/L103/21/2024 7:30 AM [facility] LABORATORYCarbon Dioxide 3120 - 31 mmol/L103/21/2024 7:30 AM [facility] Gap6.00.0 - 15.0 mmol/L103/21/2024 7:30 AM [facility] Specimen (Source)Anatomical Location / LateralityCollection Method / Volume Collection TimeReceived MgruZidsl48/26/2025 6:54 AM CST01/19/2025 7:05 AM [employer] Narrative Authorizing ProviderResult TypeResult StatusIsabelle DIAZ-CCHEMISTRY ORDERABLEFinal ResultPerforming OrganizationAddressCity/State/ZIP CodePhone Number [facility] [address] [place] [address] * (ABNORMAL) WBC (White Blood Count) (01/19/2025 6:54 AM [employer])ComponentValueRef RangeTest MethodAnalysis TimePerformed AtPathologist MyusfbjaoCCQ14.4(H)4.3 - 10.8 K/uL01/19/2025 7:28 AM [facility] (Source)Anatomical Location / LateralityCollection Method / VolumeCollection TimeReceived OjjgWiiya33/26/2025 6:54 AM [facility]01/19/2025 7:06 AM [employer] Narrative Authorizing ProviderResult TypeResult Long DIAZ-CHEMATOLOGY ORDERABLEFinal ResultPerforming OrganizationAddressCity/State/ZIP CodePhone Number [facility] [address] [place] [address] * Platelet Count (01/19/2025 6:54 AM [employer])ComponentValueRef RangeTest Method Analysis TimePerformed AtPathologist SignaturePlatelet Ufqqt212592 - 400 K/UL 01/19/2025 7:28 AM [facility]) Anatomical Location / LateralityCollection Method / VolumeCollection Time Received JtofTdeul51/26/2025 6:54 AM CST01/19/2025 7:06 AM [employer] Narrative Authorizing ProviderResult TypeResult Long Long JOE-CHEMATOLOGY ORDERABLEFinal ResultPerforming OrganizationAddressCity/State/ZIP CodePhone Number [facility] [address] [place] [address] * Hemoglobin (01/19/2025 6:54 AM [employer])ComponentValueRef RangeTest MethodAnalysis TimePerformed AtPathologist LksskrunwJegdfpogxe62.312.0 - 16.0 gm/dL01/19/2025 7:28 AM [facility]STNOR[facility]ITALSpecimen (Source)Anatomical Location / LateralityCollection Method / VolumeCollection TimeReceived Time Blood01/19/2025 6:54 AM CST01/19/2025 7:06 AM [employer] Narrative Authorizing ProviderResult TypeResult StatusIsabelle Long JOE-CHEMATOLOGY ORDERABLEFinal ResultPerforming OrganizationAddressCity/State/ZIP CodePhone Number [facility] [address] [place] [address] * Intubation (01/18/2025 11:45 AM [employer]) Narrative Carie Sanchez CRNA - 01/18/2025 11:45 AM [employer] Carie Sanchez CRNA 01/18/2025 12:08 PM Intubation Location: OR Procedural Details: Direct Vision, Atraumatic, Dentition Intact, Preox and Pharynx Clear Entry Site: Oral Laryngoscope size: 2 Laryngoscope type: Pearce Tube size: 7.0 Maskability: easy Ease: easy Cormack-Lehane: grade I - visualization of entire laryngeal aperture (95%) Tube type: Single Lumen and Cuffed Performed by: Brigitte Perez CRNA [employer]ONSTRATOR Post-procedure assessment: BBS and EtCO2 + Cuff inflated: yes ETT to lip: 22 cm Authorizing ProviderResult TypeResult Jerome GREEN BLOCKSFinal Result from Last 3 Months Insurance * Guarantor: Felicia Ibarra TypeRelation to PatientDate of PhoneBilling AddressPersonal/TsrlaxJnvq63/28/1971 [address] [place] [address] [facility] [place] Address: [address] [address] Advance Directives For more information, please contact: [phone] * Full Code (Latest Code Status on File) Date ActivatedDate AmnksifarvyOnbmpanj72/25/2025 5:17 PM01/19/2025 6:02 PM QuestionAnswerCommentsHow was code status determined?* Physician Determined * Full Code Date ActivatedDate AnetelzxwimAoewjyoc87/25/2025 2:46 PM01/18/2025 5:17 PM QuestionAnswerCommentsHow was code status determined?* Physician Determined Care Teams Team MemberRelationshipSpecialtyStart DateEnd Date Jason Farrar MD [address] [place] [address] PCP - GeneralFamily Xwlptxaz30/14/25
== END 2025-02-03 17:43 | disposition home or self-care (01) ==
LOC: ED 17:38
PROVIDERS: Emergency Provider Family Medicine; PCP Surgery
DX: R19.00 Intra-abdominal and pelvic swelling, mass and lump, unspecified site (principal)
CPT/HCPCS: 99283; 99284